=== PATIENT | female | born 1935 | race Caucasian/White ===

== ENCOUNTER 2020-10-21 14:50 | Inpatient (IN) | payer OTHER ==
--- NOTE | 2020-10-21 15:58 | RAD REPORT ---
EXAM DESCRIPTION: RAD - Ankle Left 3 View -10/21/2020 3:45 pm CLINICAL HISTORY: Left ankle pain status post injury FINDINGS: Mildly displaced medial malleolar fracture. Nondisplaced fracture medial aspect of the dis beatrice tibial metaphysis Mildly displaced lateral malleolar fracture. Probable posterior malleolar fracture. There appears to be posterior talus dislocation Old distal tibial fracture
[2020-10-21] MEDS ORDERED: MORPHINE 4 MG/ML SYR ONE (16:10)
[2020-10-21] MEDS ORDERED: NA CHLORIDE 0.9% 500 ML ONE (16:11)
[2020-10-21] MEDS ORDERED: ONDANSETRON 4 MG/2 ML VIAL ONE (16:11)
--- NOTE | 2020-10-21 17:00 | RAD REPORT ---
EXAM DESCRIPTION: RAD - Ankle Left 3 View -10/21/2020 4:27 pm CLINICAL HISTORY: Ankle fracture/dislocation FINDINGS: Good alignment of the tibiotalar joint status post reduction
--- NOTE | 2020-10-21 17:31 | EDPHYS ---
Physician Documentation [facility] Name: Leelee Bhatti Age: 85 yrs Sex: Female : 1935 Arrival Date: 10/21/2020 Time: 14:53 Bed 30 Private MD: OBI Physician Robbie Price HPI: 10/21 15:26 This 85 yrs old Female presents to ER via EMS with complaints of Ankle Injury.sree 15:26 The patient presents with decreased range of motion, a deformity, pain. The complaints sree affect the left ankle. Onset: The symptoms/episode began/occurred just prior to arrival. Context: The problem was sustained at an office, resulted from. Associated signs and symptoms: The patient has no apparent associated signs or symptoms. Modifying factors: The symptoms are alleviated by elevation of extremity, ice packs, the symptoms are aggravated by weight bearing, movement. Severity of symptoms: At their worst the symptoms were mild, in the emergency department the symptoms are unchanged. The patient has not experienced similar symptoms in the past. Historical: - Home Meds: 14:58 None [Active]; ld1 - Immunization history:: Adult Immunizations up to date. - Social history:: Smoking status: Patient denies any tobacco usage or history of. - Family history:: not pertinent. ROS: 15:26 Constitutional: Negative for fever, chills, and weight loss, Eyes: Negative for injury, sree pain, redness, and discharge, ENT: Negative for injury, pain, and discharge, Neck: Negative for injury, pain, and swelling, Cardiovascular: Negative for chest pain, palpitations, and edema, Respiratory: Negative for shortness of breath, cough, wheezing, and pleuritic chest pain, Abdomen/GI: Negative for abdominal pain, nausea, vomiting, diarrhea, and constipation, Back: Negative for injury and pain, : Negative for injury, bleeding, discharge, and swelling, Skin: Negative for injury, rash, and discoloration, Neuro: Negative for headache, weakness, numbness, tingling, and seizure, Psych: Negative for depression, anxiety, suicide ideation, homicidal ideation, and hallucinations, Allergy/Immunology: Negative for hives, rash, and allergies, Endocrine: Negative for neck swelling, polydipsia, polyuria, polyphagia, and marked weight changes, Hematologic/Lymphatic: Negative for swollen nodes, abnormal bleeding, and unusual bruising. 15:26 MS/extremity: Positive for decreased range of motion, pain, swelling, tenderness, of the left lateral ankle, left medial ankle and anterior aspect of left ankle. Exam: 15:26 Constitutional: This is a well developed, well nourished patient who is awake, alert, sree and in no acute distress. Head/Face: Normocephalic, atraumatic. Eyes: Pupils equal round and reactive to light, extra-ocular motions intact. Lids and lashes normal. Conjunctiva and sclera are non-icteric and not injected. Cornea within normal limits. Periorbital areas with no swelling, redness, or edema. ENT: Nares patent. No nasal discharge, no septal abnormalities noted. Tympanic membranes are normal and external auditory canals are clear. Oropharynx with no redness, swelling, or masses, exudates, or evidence of obstruction, uvula midline. Mucous membranes moist. Neck: Trachea midline, no thyromegaly or masses palpated, and no cervical lymphadenopathy. Supple, full range of motion without nuchal rigidity, or vertebral point tenderness. No Meningismus. Chest/axilla: Normal chest wall appearance and motion. Nontender with no deformity. No lesions are appreciated. Cardiovascular: Regular rate and rhythm with a normal S1 and S2. No gallops, murmurs, or rubs. Normal PMI, no JVD. No pulse deficits. Respiratory: Lungs have equal breath sounds bilaterally, clear to auscultation and percussion. No rales, rhonchi or wheezes noted. No increased work of breathing, no retractions or nasal flaring. Abdomen/GI: Soft, non-tender, with normal bowel sounds. No distension or tympany. No guarding or rebound. No evidence of tenderness throughout. Back: No spinal tenderness. No costovertebral tenderness. Full range of motion. Skin: Warm, dry with normal turgor. Normal color with no rashes, no lesions, and no evidence of cellulitis. Neuro: Awake and alert, GCS 15, oriented to person, place, time, and situation. Cranial nerves II-XII grossly intact. Motor strength 5/5 in all extremities. Sensory grossly intact. Cerebellar exam normal. Normal gait. Psych: Awake, alert, with orientation to person, place and time. Behavior, mood, and affect are within normal limits. 15:26 Musculoskeletal/extremity: Extremities: all appear grossly normal, with no appreciated pain with palpation, grossly normal except: noted in the left lateral ankle, left medial ankle and anterior aspect of left ankle: decreased ROM, pain, swelling, tenderness, ROM: limited active range of motion, limited passive range of motion, Circulation is intact in all extremities. Sensation intact. Compartment Syndrome exam of affected extremity: is normal. DVT Exam: No signs of deep vein thrombosis. negative Homans' sign noted on exam, no appreciated bluish discoloration, no erythema, no increased warmth, pain, swelling, tenderness, that is moderate, of the left leg, of the left lateral ankle, left medial ankle and anterior aspect of left ankle. 18:00 ECG was reviewed by the Attending Physician[facility] Vital Signs: 14:54 BP 130 / 72; Pulse 63; Resp 18; Temp 97.9(O); Pulse Ox 100% on R/A; Weight 85.28 kg; ld1 Height 5 ft. 4 in. (162.56 cm); Pain 5/10; 18:04 BP 108 / 49; Pulse 64; Resp 18; Pulse Ox 95% on R/A; ld1 18:30 BP 97 / 51; Pulse 62; Resp 20; Pulse Ox 96% on R/A; kg 19:15 BP 110 / 54; Pulse 57; Resp 20; Pulse Ox 96% on R/A; kg 14:54 Body Mass Index 32.27 (85.28 kg, 162.56 cm) ld1 MDM: 14:58 Patient medically screened. [facility] 15:33 Differential diagnosis: fracture, sprain, foreign body, gout. Data reviewed: [facility] signs, nurses notes, radiologic studies. Data interpreted: monitoring tech: not applicable for this patient encounter. rate is 63 beats/min, rhythm is regular, Pulse oximetry: on room air is 100 %. Test interpretation: by ED physician or midlevel provider: plain radiologic studies. Counseling: I had a detailed discussion with the patient and/or guardian regarding: the historical points, exam findings, and any diagnostic results supporting the discharge/admit diagnosis, radiology results, the need for outpatient follow up, for definitive care, a orthopedic surgeon. 10/21 17:32 Order name: Basic Metabolic Panel; Complete Time: 19:46 em1 10/21 17:32 Order name: CBC with Diff; Complete Time: 19:14 em1 10/21 17:32 Order name: LFT's; Complete Time: 19:46 [facility] 10/21 17:32 Order name: Magnesium; Complete Time: 19:46 [facility] 10/21 17:32 Order name: NT PRO-BNP; Complete Time: 19:46 [facility] 10/21 17:32 Order name: PT-INR; Complete Time: 19:14 [facility] 10/21 15:26 Order name: Ankle Left 3 View XRAY; Complete Time: 19:14 [facility] 10/21 16:08 Order name: Ankle Left 3 View XRAY; Complete Time: 19:14 [facility] 10/21 17:32 Order name: Troponin (emerg Dept Use Only); Complete Time: 19:46 [facility] 10/21 17:32 Order name: XRAY Chest (1 view) [facility] 10/21 18:27 Order name: RAD; Complete Time: 19:14 [facility] 10/21 19:09 Order name: CBC Smear Scan; Complete Time: 19:14 [facility] 10/21 15:26 Order name: Ice pack; Complete Time: 15:45 [facility] 10/21 16:06 Order name: NPO; Complete Time: 16:17 [facility] 10/21 16:29 Order name: Splint - Ankle: Posterior: with stirrup; Complete Time: 18:09 [facility] 10/21 17:32 Order name: EKG; Complete Time: 17:33 [facility] 10/21 17:32 Order name: Cardiac monitoring; Complete Time: 17:34 [facility] 10/21 17:32 Order name: EKG - Nurse/Tech; Complete Time: 18:34 [facility] 10/21 17:32 Order name: IV Saline Lock; Complete Time: 17:34 [facility] 10/21 17:32 Order name: Labs collected and sent; Complete Time: 18:34 [facility] 10/21 17:35 Order name: CONS Physician Consult [facility] 10/21 17:35 Order name: CONS Physician Consult [facility] 10/21 17:32 Order name: O2 Per Protocol; Complete Time: 17:34 [facility] 10/21 17:32 Order name: O2 Sat Monitoring; Complete Time: 17:34 em EC:00 Rate is 60 beats/min. Rhythm is regular. QRS [place] is Normal. [place] interval is normal. QRS sree interval is normal. QT interval is normal. No Q waves. T waves are Normal. No ST changes noted. Clinical impression: NSR w/ Non-specific ST/T Changes and No evidence of ischemia. Interpreted by me. Reviewed by me. Administered Medications: 15:56 Drug: morphine 4 mg Route: IVP; Site: right wrist; ld1 15:59 Follow up: Response: No adverse reaction ld1 15:56 Drug: Zofran (Ondansetron) 4 mg Route: IVP; Site: right wrist; ld1 15:59 Follow up: Response: No adverse reaction ld1 15:57 Drug: NS 0.9% 500 ml Route: IV; Rate: bolus; Site: right wrist; ld1 16:17 Follow up: Response: No adverse reaction; IV Status: Completed infusion; IV Intake: ld1 500ml 16:53 Not Given (Physician Discretion): Etomidate 10 mg IVP once ld1 16:53 Not Given (Physician Discretion): Etomidate 10 mg IVP once ld1 16:53 Not Given (Physician Discretion): Versed (midazolam) 2 mg IVP once ld1 16:53 Not Given (Physician Discretion): Versed (midazolam) 2 mg IVP once ld1 19:58 Drug: Potassium Effervescent Tablet 25 mEq Route: PO; kg 21:56 Follow up: Response: No adverse reaction kg Disposition Summary: 10/21/20 17:31 Hospitalization Ordered Hospitalization Status: Observation sree Provider: Karol Velásquez cha Location: Telemetry/MedSurg (Inpatient) sree Condition: Stable sree Problem: new sree Symptoms: have improved sree Bed/Room Type: Standard sree Room Assignment: [facility](10/21/20 19:53) Diagnosis - Fall (on)(from) incline sree - Fracture of lower end of tibia - dislocation / reduced trimalleolar sree - Nondisplaced fracture of lateral malleolus of left fibula sree - Hypokalemia sree Forms: - Medication Reconciliation Form sree - SBAR form sree Signatures: Dispatcher [employer] EDRobibe Donohue MD MD cha Martinez, Eric em1 Lea Wolff RN RN Marla Newell RN RN ld1 Oliva Cruz RN RN kg Corrections: (The following items were deleted from the chart) 14:58 14:58 Allergies: Niacin; ld1 ld1 14:58 14:58 Home Meds: Unable to obtain; ld1 ld1 19:53 17:31 sree cg
--- NOTE | 2020-10-21 17:31 | ER ---
Nurse's Notes [facility] Name: Leelee Bhatti Age: 85 yrs Sex: Female : 1935 Arrival Date: 10/21/2020 Time: 14:53 Bed 30 Private MD: Diagnosis: Fall (on)(from) incline;Fracture of lower end of tibia-dislocation / reduced trimalleolar;Nondisplaced fracture of lateral malleolus of left fibula;Hypokalemia Presentation: 10/21 14:54 Chief complaint: EMS states: toned out for left ankle injury. Pt slipped in mud at the 1 bank and rolled left ankle while falling. Coronavirus screen: At this time, the client does not indicate any symptoms associated with coronavirus-19. Ebola Screen: No symptoms or risks identified at this time. Initial Sepsis Screen: Does the patient meet any 2 criteria? No. Patient's initial sepsis screen is negative. Does the patient have a suspected source of infection? No. Patient's initial sepsis screen is negative. Risk Assessment: Do you want to hurt yourself or someone else? Patient reports no desire to harm self or others. Onset of symptoms was October 21, 2020. 14:54 Method Of Arrival: EMS: [facility] ld1 14:54 Acuity: GALEN 3 ld1 Triage Assessment: 14:58 General: Appears in no apparent distress. comfortable, Behavior is calm, cooperative, ld1 appropriate for age. Pain: Complains of pain in left lateral ankle and lateral aspect of left foot Pain does not radiate. Pain currently is 5 out of 10 on a pain scale. Quality of pain is described as throbbing, Pain began 2 hours ago. Is continuous. EENT: No signs and/or symptoms were reported regarding the EENT system. Neuro: Level of Consciousness is awake, alert, obeys commands, Oriented to person, place, time, situation. Cardiovascular: Capillary refill < 3 seconds Patient's skin is warm and dry. Respiratory: Airway is patent Respiratory effort is even, unlabored, Respiratory pattern is regular, symmetrical. GI: Abdomen is round non-distended. : No signs and/or symptoms were reported regarding the genitourinary system. Derm: No signs and/or symptoms reported regarding the dermatologic system. Musculoskeletal: Capillary refill < 3 seconds, in bilateral toes. Swelling absent Left ankle is swollen. Historical: - Home Meds: 14:58 None [Active]; ld1 - Immunization history:: Adult Immunizations up to date. - Social history:: Smoking status: Patient denies any tobacco usage or history of. - Family history:: not pertinent. Screenin:59 Abuse screen: Denies threats or abuse. Denies injuries from another. Nutritional ld1 screening: No deficits noted. Tuberculosis screening: No symptoms or risk factors identified. Fall Risk Fall in past 12 months (25 points). Assessment: 14:59 Reassessment: See triage assessment. ld1 16:00 Reassessment: Patient appears in no apparent distress at this time. No changes from ld1 previously documented assessment. Patient and/or family updated on plan of care and expected duration. Pain level reassessed. Patient is alert, oriented x 3, equal unlabored respirations, skin warm/dry/pink. 16:25 Reassessment: ERP at bedside discussing POC. ld1 17:55 Reassessment: Patient appears in no apparent distress at this time. No changes from ld1 previously documented assessment. Patient is alert, oriented x 3, equal unlabored respirations, skin warm/dry/pink. 19:30 Reassessment: Message left on Son Koby Guillaume voicemail. Will continue to try to reach kg him per patient request. [phone]. Vital Signs: 14:54 BP 130 / 72; Pulse 63; Resp 18; Temp 97.9(O); Pulse Ox 100% on R/A; Weight 85.28 kg; ld1 Height 5 ft. 4 in. (162.56 cm); Pain 5/10; 18:04 BP 108 / 49; Pulse 64; Resp 18; Pulse Ox 95% on R/A; ld1 18:30 BP 97 / 51; Pulse 62; Resp 20; Pulse Ox 96% on R/A; kg 19:15 BP 110 / 54; Pulse 57; Resp 20; Pulse Ox 96% on R/A; kg 14:54 Body Mass Index 32.27 (85.28 kg, 162.56 cm) ld1 ED Course: 14:53 Patient arrived in ED. ld1 14:53 Marla Newell, BETSY is Primary Nurse. ld1 14:57 Triage completed. ld1 14:58 Robbie Price MD is Attending Physician. sree 14:58 Arm band placed on left wrist. ld1 14:59 Patient has correct armband on for positive identification. Bed in low position. Call ld1 light in reach. Side rails up X2. Pulse ox on. NIBP on. Door closed. Noise minimized. Warm blanket given. 14:59 No provider procedures requiring assistance completed. ld1 15:45 Ankle Left 3 View XRAY In Process Unspecified. EDMS 16:27 Ankle Left 3 View XRAY In Process Unspecified. EDMS 17:20 Karol Velásquez MD is Hospitalizing Provider. sree 17:26 Orthoglass splint: Posterior long leg splint applied on right leg. Orthoglass splint: dh4 stirrup splint applied on right leg. 20:40 Report given to Phyllis MEYERdrugless doctor. kg Administered Medications: 15:56 Drug: morphine 4 mg Route: IVP; Site: right wrist; ld1 15:59 Follow up: Response: No adverse reaction ld1 15:56 Drug: Zofran (Ondansetron) 4 mg Route: IVP; Site: right wrist; ld1 15:59 Follow up: Response: No adverse reaction ld1 15:57 Drug: NS 0.9% 500 ml Route: IV; Rate: bolus; Site: right wrist; ld1 16:17 Follow up: Response: No adverse reaction; IV Status: Completed infusion; IV Intake: ld1 500ml 16:53 Not Given (Physician Discretion): Etomidate 10 mg IVP once ld1 16:53 Not Given (Physician Discretion): Etomidate 10 mg IVP once ld1 16:53 Not Given (Physician Discretion): Versed (midazolam) 2 mg IVP once ld1 16:53 Not Given (Physician Discretion): Versed (midazolam) 2 mg IVP once ld1 19:58 Drug: Potassium Effervescent Tablet 25 mEq Route: PO; kg 21:56 Follow up: Response: No adverse reaction kg Intake: 16:17 IV: 500ml; Total: 500ml. ld1 Outcome: 17:31 Decision to Hospitalize by Provider. sree 20:41 Admitted to Med/surg accompanied by tech, via stretcher, Report called to Phyllis MEYER kg 20:41 Condition: good 20:41 Instructed on the need for admit, Demonstrated understanding of instructions. 21:56 Patient left the ED. kg Signatures: Dispatcher [employer] Robbie Silva MD MD cha Huhn, Donald 4 Marla Newell RN RN ld1 Oliva Cruz RN RN kg Corrections: (The following items were deleted from the chart) 14:58 14:58 Allergies: Niacin; ld1 ld1 14:58 14:58 Home Meds: Unable to obtain; ld1 ld1
--- NOTE | 2020-10-21 18:27 | RAD REPORT ---
EXAM DESCRIPTION: Tori Single View10/21/2020 6:14 pm CLINICAL HISTORY: Chest pain COMPARISON: 2011 FINDINGS: [id number] bilateral pulmonary opacities. Heart is mildly enlarged IMPRESSION: [id number] bilateral pulmonary opacities may indicate pneumonia or pulmonary edema
[2020-10-21 18:33] LABS: Absolute Lymphocytes (CBC) 0.8 K/uL (0.7-4.9); Basophils % 0.4 % (0-1.3); Hematocrit 38.4 % (36.0-45.0); Lymphocytes % 9.7 % (15.3-44.8); MPV 7.5 fL (7.6-11.3); RBC Red Blood Cell Count 4.43 M/uL (3.86-4.86)
[2020-10-21 18:36] LABS: Protime INR 1.03
[2020-10-21 19:08] LABS: Blood Morphology Comment NOT SEEN (NOT SEEN); Platelet Estimate ADEQ; White Blood Cell Scan OK (OK)
[2020-10-21 19:27] LABS: ALT/SGPT 24 U/L (12-78); AST/SGOT 19 U/L (15-37); Albumin 3.4 g/dL (3.4-5.0); Alkaline Phosphatase 66 U/L (45-117); BUN Blood Urea Nitrogen 14 mg/dL (7-18); Bicarbonate 26 mmol/L (21-32); Bilirubin Direct 0.1 mg/dL (0-0.2); Bilirubin Total 0.4 mg/dL (0.2-1.0); Glucose Level 133 mg/dL (74-106); Magnesium 2.1 mg/dL (1.8-2.4); NT PRO-BNP 56 pg/mL (<450); Potassium 3.3 mmol/L (3.5-5.1); Protein, Total 6.9 g/dL (6.4-8.2); Sodium Level 139 mmol/L (136-145); Troponin (Emerg Dept Use Only) < 0.02 ng/mL (0.0-0.045)
[2020-10-21] MEDS ORDERED: POTASSIUM 25 MEQ EFFERV TAB ONE (20:15)
[2020-10-21] MEDS: NA CHLORIDE 0.9% 1,000 ML IV SCH (22:18)
[2020-10-22 06:09] LABS: Absolute Lymphocytes (CBC) 1.2 K/uL (0.7-4.9); Basophils % 0.4 % (0-1.3); Hematocrit 36.2 % (36.0-45.0); Lymphocytes % 17.3 % (15.3-44.8); MPV 7.7 fL (7.6-11.3); RBC Red Blood Cell Count 4.15 M/uL (3.86-4.86)
[2020-10-22 06:28] LABS: Potassium 3.3 mmol/L (3.5-5.1)
[2020-10-22] MEDS: NA CHLORIDE 0.9% 1,000 ML IV SCH ×2 (08:18→17:05)
[2020-10-22] MEDS: ONDANSETRON 4 MG/2 ML VIAL IV PRN (10:02)
[2020-10-22] MEDS: MORPHINE 4 MG/ML SYR IV PRN (10:02)
--- NOTE | 2020-10-22 13:47 | HP ---
Date of Admission: 10/21/2020 History Of Present Illness: [age] year female, who presents to the emergency room with a histo ry that while at home, she stepped on a wet floor and she lost balance, slipped and fell. Her evalua tion in the emergency room showed that the patient has left ankle fracture and she was admitted for p ain control and for possible surgery on that. The patient denies head trauma and no loss of consciou sness. Has no other complaints of pain anywhere except her left ankle. She has no increased shortne ss of breath. No chest pain. No cough. No fever. No chills and voiced no other complaints. Review of Systems: Cardiovascular: No complaints. Respiratory: No complaints. Skeletomuscular: As above. Genitourinary: No complaint. Gastrointestinal: No complaint. Neurological: No complaint. Past Medical History: 1.Hypertension. 2.Hyperlipidemia. 3.Depression. 4.Gastroesophageal reflux disease. Social History: No smoking, alcohol, or IV drug abuse history. Family History: Noncontributing. Medications: Include metoprolol 25 mg p.o. daily, pravastatin 80 mg p.o. daily, sertraline 100 mg p. o. daily and omeprazole 20 mg p.o. daily. Allergies: NIACIN. Physical Examination: Vital Signs: Blood pressure 127/61, pulse 80, temperature 97.7, oxygen saturation 92% on room air. Heart: Regular rate and rhythm. Chest: Clear to auscultation. Abdomen: Soft, nontender. No hepatosplenomegaly. Bowel sounds are normoactive. Extremities: No edema. No cyanosis. Left ankle is in a splint. Neurologic: Alert, oriented, grossly intact. Radiographic Studies: Left ankle x-ray showed fracture of the medial and lateral malleoli which are mildly displaced. Chest x-ray, an incidental finding of mild to moderate bilateral pulmonary opaciti es, pneumonia versus pulmonary edema consideration. Laboratory Data: CBC noted. Chemistry; potassium 3.3, GFR 80. The rest of her chemistry is noted. Assessment/plan: Left malleolar ankle fracture. Dr. Camacho have seen the patient and considering the surgery on that by tomorrow. The patient is clinically stable, however, we will go ahead and or rosetta a cardiac echo because of the chest x-ray finding and we will monitor the patient's vitals. So f ar, no clinical indications that the patient has pneumonia or congestive heart failure, but we will c heck an echo and repeat a chest x-ray in the morning. Meanwhile, we will put the patient on electrol yte protocol for her hypokalemia. Look orders for details. MFS/MODL Voice ID: [id number]
--- NOTE | 2020-10-22 14:38 | CON ---
Date of Consultation: 10/22/2020 History Of Present Illness: This is my first time seeing this patient to my knowledge. She is an 85 -year-old female, who unfortunately fell injuring her left lower extremity. She does have a history of an old tibia fracture, which was healed, but now has significant complaints of pain at the ankle. She was seen and examined in the emergency department where she was ruled out for other injuries; ho shanna, unfortunately, she has a trimalleolar ankle fracture, which was reduced and appears to be well reduced on x-rays. Physical Examination: There is no sign of an open injury. She complains of pain in both medial and lateral malleolus. The re was no plantar ecchymosis. Her skin does wrinkle, although it was slightly swollen. She is neuro vascularly intact. Laboratory Data: Review of x-rays does reveal trimalleolar ankle fracture, which appears to be well reduced. Assessment: Trimalleolar ankle fracture in an 85-year-old female. Plan: At this time, we will proceed with open reduction and internal fixation of ankle fracture, mos t likely tomorrow. She will be n.p.o. after midnight. This is continued upon her skin being easily wrinkle tomorrow. This has been discussed with the patient. She states she understands things as pr esented. /MODL Voice ID: [id number] Report ID: [id number]
[2020-10-22] MEDS: ENOXAPARIN 40 MG/0.4 ML SQ SCH (15:58)
[2020-10-22] MEDS: ACETAMINOPHEN 500 MG TAB PO PRN (17:04)
[2020-10-22] MEDS: SERTRALINE HCL 100 MG TAB PO SCH (17:06)
[2020-10-22] MEDS: ATORVASTATIN 10 MG TAB PO SCH (21:45)
[2020-10-23] MEDS: NA CHLORIDE 0.9% 1,000 ML IV SCH ×2 (05:14→14:18)
[2020-10-23 06:06] LABS: Basophils % 0.5 % (0-1.3); Hematocrit 33.9 % (36.0-45.0); Lymphocytes % 15.5 % (15.3-44.8); MPV 7.9 fL (7.6-11.3); RBC Red Blood Cell Count 3.95 M/uL (3.86-4.86)
[2020-10-23] MEDS: PANTOPRAZOLE 40MG TABLET PO SCH ×2 (06:06→16:45)
[2020-10-23 06:15] LABS: Potassium 3.6 mmol/L (3.5-5.1)
[2020-10-23] MEDS: MORPHINE 4 MG/ML SYR IV PRN (06:21)
[2020-10-23] MEDS ORDERED: KCL 20 MEQ/100 mL IVPB 20 MEQ/100 ML BAG IV SCH (07:00)
[2020-10-23] MEDS ORDERED: CEFAZOLIN/SWI 1gm 1 GM/10 ML SYR ONE (08:40)
[2020-10-23] MEDS ORDERED: Ringers Lactate 0 ML IV ONE (08:40)
[2020-10-23] MEDS: SERTRALINE HCL 100 MG TAB PO SCH ×2 (08:42→16:46)
[2020-10-23] MEDS: METOPROLOL TAR 25 MG TAB PO SCH (08:42)
[2020-10-23] MEDS ORDERED: HOME MED 1 EA UNK (Pravastatin Sodium [Pravastatin Sodium] 80 MG Tablet) PO SCH (09:00)
[2020-10-23] MEDS ORDERED: HOME MED 1 EA UNK (Omeprazole [Omeprazole] 20 MG Capsule.Dr) PO SCH (09:00)
[2020-10-23] MEDS ORDERED: propofoL 200 MG/20 ML VIAL IV ONE (09:14)
[2020-10-23] MEDS ORDERED: LIDOCAINE 2% MPF 5 ML VIAL ONE (09:15)
[2020-10-23] MEDS ORDERED: FENTANYL CITR 100 MCG/2 ML ONE ×2 (09:15→10:16)
[2020-10-23] MEDS ORDERED: dexAMETHasone 10 MG/ML VIAL ONE (09:54)
[2020-10-23] MEDS ORDERED: KETOROLAC 30 MG/ML INJ ONE (09:55)
[2020-10-23] MEDS ORDERED: ONDANSETRON 4 MG/2 ML VIAL ONE (09:55)
--- NOTE | 2020-10-23 10:48 | RAD REPORT ---
EXAM DESCRIPTION: Tori Single View10/23/2020 6:55 am CLINICAL HISTORY: Chest pain COMPARISON: October 21 FINDINGS: Bilateral pulmonary opacities appear resolved. Heart is borderline enlarged IMPRESSION: Resolution in bilateral pulmonary opacities
--- NOTE | 2020-10-23 11:13 | P.BOP ---
Preoperative diagnosis: left trimalleolar ankle fracture Postoperative diagnosis: same Primary procedure: left ankle bimalleolar ORIF Estimated blood loss: 20ccs Anesthesia: General Complications: None Transferred to: Recovery Room Condition: Good
[2020-10-23] MEDS ORDERED: LABETALOL 20 MG/4ML SYRINGE IV ONE (11:45)
--- NOTE | 2020-10-23 11:45 | RAD REPORT ---
EXAM DESCRIPTION: RAD - Ankle Left 2 View - 10/23/2020 11:28 am CLINICAL HISTORY: Left ankle fracture FINDINGS: fluoro time: 0.4 minutes. Seventeen fluoroscopic spot images obtained Plate and screws affix medial and lateral malleolar fractures. Surgery performed by Dr. Camacho
--- NOTE | 2020-10-23 11:51 | OP ---
Date of Procedure: 10/23/2020 Surgeon: Demarco Camacho MD Preoperative Diagnosis: Left trimalleolar ankle fracture which is comminuted and complex. Postoperative Diagnosis: Left trimalleolar ankle fracture which is comminuted and complex. Procedure: 1.Open reduction and internal fixation of medial malleolus. 2.Open reduction and internal fixation of lateral malleolus. Estimated Blood Loss: 20 cc. Complication: There were no complications. Pathology: No pathology. Specimen: No specimen sent. Indication For Operation: Ms. Bhatti is an 85-year-old female who unfortunately injured her left ank le. She was seen in the emergency department where she was ruled out for other injuries, however, x- rays demonstrated a trimalleolar ankle fracture. I saw her yesterday as well as this morning and her skin does easily wrinkle. Risks, benefits, and alternatives to different methods of treatment have been discussed with her and she agrees to proceed. Description Of Procedure: The patient was taken to the operating room and placed in supine position. General anesthesia was obtained by staff. Following this, a well-padded tourniquet was placed on s uperior left thigh. Left lower extremity was then prepped and draped in usual sterile fashion. Afte r this, attention was first turned to the medial aspect. A long medial incision was then taken down carefully through skin and soft tissues. Meticulous hemostasis being maintained using Bovie electroc autery. This leads down to the primary fracture fragment. It should be noted on the x-ray that she does have a secondary fracture fragment, which is somewhat higher. This is not to be confused with a n old healed tibia fracture as a new fracture, which is not easily seen, but is definitely appreciate d. Because of this one 4-0 cannulated screw was placed, which is fairly long covering both fractures . The bone itself was quite fragile and did not feel that placing another cannulated screw or other fixation would be beneficial. It did appear to hold the fractures quite well. After this, attention was then turned to the lateral aspect. A standard lateral incision was taken down carefully through skin and soft tissues. Meticulous hemostasis being maintained using Bovie electrocautery. This manav ds down to the fibula as expected and identical to the medial side the bone is very fragile and the f racture site itself is comminuted. I was able to reduce it using a lobster claw, however, had to be done very gently. This was checked under C-arm and it did appear to have a good reduction. There is no real way to place a lag screw and therefore it was then bridge plated using a the Synthes set, 1/ 3 tubular. The most distal screw is a cancellous screw. The screw above that is a locking cortical screw, which was placed because the bone quality there was extremely poor. The 3 more proximal screw s on the other side of the fracture did have fairly good bite. The wound was irrigated and C-arm was brought in. It does appear to have good reduction of the joint surfaces. Both wounds were copiousl y irrigated and closed using Vicryl sutures, followed by nylon sutures. The patient was then placed in extremely well-padded sterile dressing as well as a posterior splint, new. The patient was then awakened, taken to recovery room in good condition. No complications. /JORGE Voice ID: [id number] Report ID: [id number]
--- NOTE | 2020-10-23 14:36 | PN ---
Subjective: The patient has had open reduction and internal fixation of left middle and lateral mall eoli ankle. Objective: The patient's blood pressure 136/70, pulse 70, temperature 98. Rest of physical exam, no change. Laboratory Data: CBC today noted. Chemistry noted with a chloride of 108, GFR of 85. Assessment And Plan: Status post surgical correction of left ankle fracture as mentioned above with Solicitor Patent for discharge planning for the patient because she lives alone and if she needs to be placed with physical therapy and weightbearing pending. Cardiac echo ordered. Her chest x-ray today showed resolution of pulmonary opacities. Look orders for details. MFS/MODL Voice ID: [id number] Report ID: [id number]
[2020-10-23] MEDS: ENOXAPARIN 40 MG/0.4 ML SQ SCH (16:46)
[2020-10-23] MEDS ORDERED: POTASSIUM CL SA 10 MEQ TAB PO ONE (17:00)
[2020-10-23] MEDS: ATORVASTATIN 10 MG TAB PO SCH (21:49)
[2020-10-23] MEDS: ACETAMINOPHEN 500 MG TAB PO PRN (22:08)
[2020-10-24] MEDS: NA CHLORIDE 0.9% 1,000 ML IV SCH ×3 (00:18→20:18)
[2020-10-24 06:07] LABS: Phosphorus 2.4 mg/dL (2.5-4.9); Potassium 4.5 mmol/L (3.5-5.1)
[2020-10-24] MEDS: PANTOPRAZOLE 40MG TABLET PO SCH (06:21)
[2020-10-24] MEDS: METOPROLOL TAR 25 MG TAB PO SCH (10:19)
[2020-10-24] MEDS: SERTRALINE HCL 100 MG TAB PO SCH (10:19)
[2020-10-24] MEDS: POTASS/SODIUM PHOSPHATE 1 PKT POWD.PACK PO SCH ×2 (10:19→11:22)
[2020-10-24] MEDS: MORPHINE 4 MG/ML SYR IV PRN (11:26)
[2020-10-24] MEDS: ONDANSETRON 4 MG/2 ML VIAL IV PRN (11:26)
[2020-10-24] MEDS: ENOXAPARIN 40 MG/0.4 ML SQ SCH (16:54)
[2020-10-24] MEDS: ATORVASTATIN 10 MG TAB PO SCH (21:27)
[2020-10-24] MEDS: HYDROCODONE/APAP 5/325 MG TAB PO PRN (21:28)
[2020-10-25] MEDS: PANTOPRAZOLE 40MG TABLET PO SCH (05:48)
[2020-10-25 06:17] LABS: Phosphorus 2.3 mg/dL (2.5-4.9); Potassium 3.8 mmol/L (3.5-5.1)
[2020-10-25] MEDS ORDERED: POTASSIUM CL SA 10 MEQ TAB PO ONE (07:24)
[2020-10-25] MEDS: POTASS/SODIUM PHOSPHATE 1 PKT POWD.PACK PO SCH ×3 (08:27→10:51)
[2020-10-25] MEDS: HYDROCODONE/APAP 5/325 MG TAB PO PRN ×2 (08:28→18:16)
[2020-10-25] MEDS: SERTRALINE HCL 100 MG TAB PO SCH (08:28)
[2020-10-25] MEDS: METOPROLOL TAR 25 MG TAB PO SCH (08:28)
--- NOTE | 2020-10-25 08:31 | ECHO ---
HEIGHT: 5 ft 2 in WEIGHT: 187 lb 0 oz DATE OF STUDY: 10/22/[address]: Karol Velásquez MD 2-DIMENSIONAL: YES M.MODE: YES DOPPLER: YES COLOR FLOW: YES TDS: YES PORTABLE: NO DEFINITY: NO BUBBLE STUDY: NO DIAGNOSIS: PULMONARY EDEMA CARDIAC HISTORY: CATHERIZATION: SURGERY: PROSTHETIC VALVE: PACEMAKER: MEASUREMENTS (cm) DIASTOLIC (NORMALS) SYSTOLIC (NORMALS) IVSd 0.8 (0.6-1.2) LA Diam 3.1 (1.9-4.0) LVEF 55-60% LVIDd 4.0 (3.5-5.7) LVIDs 2.6 (2.0-3.5) %FS 35% LVPWd 0.9 (0.6-1.2) Ao Diam 2.5 (2.0-3.7) 2 DIMENSIONAL ASSESSMENT: RIGHT ATRIUM: NORMAL LEFT ATRIUM: NORMAL RIGHT VENTRICLE: NORMAL LEFT VENTRICLE: NORMAL TRICUSPID VALVE: MITRAL VALVE: NORMAL PULMONIC VALVE: NORMAL AORTIC VALVE: NORMAL PERICARDIAL EFFUSION: NONE AORTIC ROOT: NORMAL LEFT VENTRICULAR WALL MOTION: NORMAL DOPPLER/COLOR FLOW: MILD TRICUSPID REGURGITATION. COMMENTS: NORMAL LEFT VENTRICULAR EJECTION FRACTION 55-60%. GRADE I DIASTOLIC DYSFUNCTION. RIGHT VENTRICULAR SYSTOLIC PRESSURE 35-40 mmHg. TECHNOLOGIST: Jose LOPEZ
[2020-10-25] MEDS: ENOXAPARIN 40 MG/0.4 ML SQ SCH (18:16)
[2020-10-25] MEDS: ATORVASTATIN 10 MG TAB PO SCH (21:05)
[2020-10-25 22:35] VITALS: BMI 37.0
[2020-10-26 04:25] LABS: BUN Blood Urea Nitrogen 13 mg/dL (7-18); Bicarbonate 30 mmol/L (21-32); Glucose Level 92 mg/dL (74-106); Phosphorus 3.6 mg/dL (2.5-4.9); Sodium Level 141 mmol/L (136-145)
[2020-10-26] MEDS: PANTOPRAZOLE 40MG TABLET PO SCH (05:37)
[2020-10-26] MEDS: HYDROCODONE/APAP 5/325 MG TAB PO PRN (05:49)
[2020-10-26] MEDS: METOPROLOL TAR 25 MG TAB PO SCH (10:37)
[2020-10-26] MEDS: SERTRALINE HCL 100 MG TAB PO SCH (10:38)
[2020-10-26] MEDS: ACETAMINOPHEN 500 MG TAB PO PRN ×2 (12:24→17:24)
[2020-10-26] MEDS: ENOXAPARIN 40 MG/0.4 ML SQ SCH (17:20)
[2020-10-26] MEDS: ATORVASTATIN 10 MG TAB PO SCH (20:55)
[2020-10-27] MEDS: ACETAMINOPHEN 325 MG TABLET PO PRN ×3 (04:36→20:56)
[2020-10-27] MEDS: PANTOPRAZOLE 40MG TABLET PO SCH (06:20)
[2020-10-27] MEDS: SERTRALINE HCL 100 MG TAB PO SCH (08:31)
[2020-10-27] MEDS: METOPROLOL TAR 25 MG TAB PO SCH (08:31)
[2020-10-27] MEDS: ENOXAPARIN 40 MG/0.4 ML SQ SCH (15:52)
[2020-10-27] MEDS: ATORVASTATIN 10 MG TAB PO SCH (20:56)
[2020-10-28] MEDS: PANTOPRAZOLE 40MG TABLET PO SCH (06:30)
[2020-10-28] MEDS: SERTRALINE HCL 100 MG TAB PO SCH (09:21)
[2020-10-28] MEDS: ACETAMINOPHEN 325 MG TABLET PO PRN ×2 (09:22→19:12)
[2020-10-28] MEDS: METOPROLOL TAR 25 MG TAB PO SCH (09:22)
--- NOTE | 2020-10-28 13:16 | PN ---
The patient is hemodynamically and clinically stable, has no new complaints. Apparently, the patient 's son will not be able to take her in his house, so plan as per Legal Compliance Officer after discussing it with the patient is to go ahead and send her to a penitentiary facility. Right now, we are waitin g on penitentiary facility response to transfer her there. MFS/MODL Voice ID: [id number] Report ID: [id number]
[2020-10-28] MEDS: ENOXAPARIN 40 MG/0.4 ML SQ SCH (17:24)
[2020-10-28] MEDS: ATORVASTATIN 10 MG TAB PO SCH (20:19)
[2020-10-29] MEDS: PANTOPRAZOLE 40MG TABLET PO SCH (06:18)
[2020-10-29] MEDS: ACETAMINOPHEN 325 MG TABLET PO PRN ×3 (10:19→22:25)
[2020-10-29] MEDS: METOPROLOL TAR 25 MG TAB PO SCH (10:20)
[2020-10-29] MEDS: SERTRALINE HCL 100 MG TAB PO SCH (10:21)
--- NOTE | 2020-10-29 16:21 | PN ---
Subjective: The patient is doing well. Has no new complaints. Objective: Vital Signs: Blood pressure 130/70, pulse 100, temperature 97.8. Heart: Regular rate and rhythm. Chest: Clear to auscultation. Abdomen: Soft, benign. Neurological examination: Alert, oriented, and nonfocal. Grossly intact. Extremities: Left lower extremity and ankle are dressed. Right extremity, no edema. Assessment And Plan: Status post open reduction and internal fixation for left ankle. The patient i s doing well. However, I have talked with the patient, since her son cannot take her home or he jesus ot come to stay with her, that she needs to be in a facility where she could have physical therapy un til she can ambulate on her own, so she understood that and will await response from [facility] for that, so she can be transferred over there with her physical therapy. Per the patient up until now still needing assistance with ambulation. MFS/MODL Voice ID: [id number] Report ID: [id number]
[2020-10-29] MEDS: ENOXAPARIN 40 MG/0.4 ML SQ SCH (17:22)
[2020-10-29] MEDS: ATORVASTATIN 10 MG TAB PO SCH (20:22)
[2020-10-29] MEDS: HYDROCODONE/APAP 5/325 MG TAB PO PRN (22:23)
[2020-10-30] MEDS: PANTOPRAZOLE 40MG TABLET PO SCH (06:52)
[2020-10-30] MEDS: METOPROLOL TAR 25 MG TAB PO SCH (08:36)
[2020-10-30] MEDS: SERTRALINE HCL 100 MG TAB PO SCH (08:36)
[2020-10-30] MEDS: ACETAMINOPHEN 325 MG TABLET PO PRN ×2 (10:55→18:22)
--- NOTE | 2020-10-30 15:04 | PN ---
Subjective: The patient is hemodynamically stable, doing well. Objective: Vital Signs: Blood pressure 135/65, pulse 66, temperature 97.3. Physical exam has no changes, clinically stable. Still waiting for assisted placement, physical therapy after her open reduction and internal fixation surgery on her left ankle. Once, she has a be d in a assisted, [facility] facility with physical therapy . Meanwhile, continue current treatment. MFS/MODL Voice ID: [id number] Report ID: [id number]
[2020-10-30] MEDS: ENOXAPARIN 40 MG/0.4 ML SQ SCH (16:39)
[2020-10-30] MEDS: ATORVASTATIN 10 MG TAB PO SCH (20:12)
[2020-10-31] MEDS: ACETAMINOPHEN 325 MG TABLET PO PRN ×3 (00:16→16:35)
[2020-10-31] MEDS: PANTOPRAZOLE 40MG TABLET PO SCH (06:38)
[2020-10-31] MEDS: SERTRALINE HCL 100 MG TAB PO SCH (10:03)
[2020-10-31] MEDS: METOPROLOL TAR 25 MG TAB PO SCH (10:03)
[2020-10-31] MEDS: ENOXAPARIN 40 MG/0.4 ML SQ SCH (16:36)
[2020-10-31] MEDS: ATORVASTATIN 10 MG TAB PO SCH (20:59)
[2020-11-01] MEDS: PANTOPRAZOLE 40MG TABLET PO SCH (05:59)
[2020-11-01] MEDS: SERTRALINE HCL 100 MG TAB PO SCH (08:24)
[2020-11-01] MEDS: METOPROLOL TAR 25 MG TAB PO SCH (08:24)
--- NOTE | 2020-11-01 16:27 | PN ---
Subjective: The patient's blood pressure 130/60, pulse 64, temperature 97.7. The patient has no new complaints. Physical Examination: No change. Assessment And Plan: The patient is clinically stable at this time. We will continue physical thera py until she gets accepted to the [facility] for physical therapy to continue. I have not heard [facility] Associate Program Manager today about this issue. MFS/MODL Voice ID: [id number] Report ID: [id number]
[2020-11-01] MEDS: ENOXAPARIN 40 MG/0.4 ML SQ SCH (17:00)
[2020-11-01] MEDS: ATORVASTATIN 10 MG TAB PO SCH (21:06)
[2020-11-01] MEDS: ACETAMINOPHEN 325 MG TABLET PO PRN (23:02)
[2020-11-02] MEDS: PANTOPRAZOLE 40MG TABLET PO SCH ×2 (06:31→10:08)
[2020-11-02] MEDS: METOPROLOL TAR 25 MG TAB PO SCH (10:07)
[2020-11-02] MEDS: SERTRALINE HCL 100 MG TAB PO SCH (10:08)
[2020-11-02 15:11] VITALS: O2SAT 96
[2020-11-02] MEDS: ENOXAPARIN 40 MG/0.4 ML SQ SCH (15:40)
[2020-11-02] MEDS: ATORVASTATIN 10 MG TAB PO SCH (20:33)
[2020-11-03] MEDS: ACETAMINOPHEN 325 MG TABLET PO PRN ×2 (02:25→10:52)
[2020-11-03 06:47] LABS: Absolute Lymphocytes (CBC) 1.3 K/uL (0.7-4.9); Basophils % 0.7 % (0-1.3); Hematocrit 33.3 % (36.0-45.0); Lymphocytes % 19.1 % (15.3-44.8); MPV 7.5 fL (7.6-11.3); RBC Red Blood Cell Count 3.82 M/uL (3.86-4.86)
[2020-11-03] MEDS ORDERED: hydroCHLOROthiazide 12.5 MG CAP PO SCH (09:00)
[2020-11-03] MEDS ORDERED: AMLODIPINE 5 MG TAB PO SCH (09:00)
[2020-11-03] MEDS: SERTRALINE HCL 100 MG TAB PO SCH (09:52)
[2020-11-03] MEDS: METOPROLOL TAR 25 MG TAB PO SCH (09:52)
[2020-11-03 12:21] VITALS: BP 130/67; TEMP 98.4
== END 2020-11-03 15:19 | DRG 494 ==
LOC: ER 14:50 → ERHOLD 17:33 → 2ND 20:43
PROVIDERS: ADMIT Internal Medicine; ATTEND Internal Medicine
PROC: 0QSH04Z Reposition Left Tibia with Internal Fixation Device, Open Approach (ICD-10-PCS; 2020-10-23)
PROC: 0QSK04Z Reposition Left Fibula with Internal Fixation Device, Open Approach (ICD-10-PCS; principal; 2020-10-23 09:00)
DX: S82.852A Displaced trimalleolar fracture of left lower leg, initial encounter for closed fracture (principal); W01.0XXA Fall on same level from slipping, tripping and stumbling without subsequent striking against object, initial encounter; Y92.009 Unspecified place in unspecified non-institutional (private) residence as the place of occurrence of the external cause; I10 Essential (primary) hypertension; E78.5 Hyperlipidemia, unspecified; F32.9 Major depressive disorder, single episode, unspecified; K21.9 Gastro-esophageal reflux disease without esophagitis; Z20.822 Contact with and (suspected) exposure to COVID-19
CPT/HCPCS: 36415; 71045; 80048; 80076; 83735; 83880; 84100; 84484; 85025; 85610; 93005; 93306; 96374; 96375; 97110; 97112; 97116; 97162; 97530; 97542; 99285; J0690; J1100; J1650; J2405; J2704; J3010; J7030; J7040; J7120; U0003

== ENCOUNTER → 2023-04-07 | Emergency (ER) | payer OTHER ==
[~2023-04-07] MED LIST: LORAZEPAM 1 MG TABLET ONE
--- OUTSIDE RECORDS SUMMARY | 2023-04-07 03:00 | XMS REPORT | Continuity of Care Document ---
Author Name Unknown Address [address] [facility] [address] th[address] Address [address] [facility] [address] [place] [address] Care Team Providers Care Tear Down Worker Name Role Phone Sahil Piedra Attending Clinician Unavailable [email or web address]_S Attending Clinician Unavaila ble [email or web address]_S Admitting Clinician Unavaila ble Encounters Start Date/Time End Date/Time Encounter Type Admission Type Attending Clinicians Care Facility Care Department Encounter ID Source 2022-07-14 14:39:02 Outpatient Tadeo Sahil [facility] [id number] [facility] 2022-07-12 08:06:00 Outpatient Sahil Piedra [facility] [id number] [facility] 2022-07-10 09:04:02 Outpatient Tadeo Sahil [facility] [id number] [facility] 2023-01-30 00:00:00 2023-01-30 00:00:00 Outpatient [email or web address] diyala_S [facility] [id number] [facility]
[2023-04-07 03:43] LABS: Absolute Lymphocytes (CBC) 1.4 K/uL (0.7-4.9); Hematocrit 41.3 % (36.0-45.0); Lymphocytes % 24.6 % (15.3-44.8); MCV 90.3 fL (80-100); MPV 7.5 fL (7.6-11.3); Platelets 192 thou/uL (152-406); RBC Red Blood Cell Count 4.57 M/uL (3.86-4.86)
[2023-04-07 04:04] LABS: Albumin 3.4 g/dL (3.4-5.0); Bilirubin Total 0.4 mg/dL (0.2-1.0); Magnesium 2.1 mg/dL (1.6-2.4); Potassium 3.6 mEq/L (3.5-5.1); Protein, Total 7.2 g/dL (6.4-8.2); Troponin High Sensitivity 6.5 pg/mL (<58.9)
--- NOTE | 2023-04-07 04:14 | EDPHYS ---
Physician Documentation [facility] Name: Leelee Bhatti Age: 87 yrs Sex: Female : 1935 Arrival Date: 04/07/2023 Time: 02:57 Bed 3 Private MD: ED Physician Kvng Nielson HPI: 04/07 03:31 This 87 yrs old Female presents to ER via EMS with complaints of Tremors, rt panicking. 03:31 Patient presents to the ED with reported pain again with shaking and night terrors rt starting tonight. The patient states that her sertraline was abruptly stopped by her physician about 2 weeks ago. She denies any physical symptoms at this time otherwise, denies other acute complaints and states that she is bleeding to mildly improved. Symptoms are moderate in severity, no other aggravating or elevating factors. Historical: - Allergies: 03:10 Niacin; jw7 - Home Meds: 03:10 amlodipine oral [Active]; sertraline oral [Active]; jw7 03:10 hydralazine/lisinopril [Active]; pravastatin oral [Active]; jw7 - PMHx: 03:10 Hypertensive disorder; Anxiety; Major depressive disorder; jw7 - PSHx: 03:10 Ankle (L); jw7 - Immunization history:: Adult Immunizations up to date, Client reports receiving the 2nd dose of the Covid vaccine, Pneumococcal vaccine is up to date, Flu vaccine is not up to date. It has been more than one year since last vaccine. - Social history:: Smoking status: Patient denies any tobacco usage or history of. - Family history:: not pertinent. ROS: 03:31 Constitutional: Negative for fever, chills, and weight loss, Cardiovascular: Negative rt for chest pain, palpitations, and edema, Respiratory: Negative for shortness of breath, cough, wheezing, and pleuritic chest pain, Abdomen/GI: Negative for abdominal pain, nausea, vomiting, diarrhea, and constipation, MS/Extremity: Negative for injury and deformity, Skin: Negative for injury, rash, and discoloration, 03:31 Neuro: Positive for tremor, Negative for altered mental status, 03:31 Psych: Positive for anxiety, Negative for depression, Exam: 03:31 Constitutional: This is a well developed, well nourished patient who is awake, alert, rt and in no acute distress. Head/Face: Normocephalic, atraumatic. Chest/axilla: Normal chest wall appearance and motion. Nontender with no deformity. No lesions are appreciated. Cardiovascular: Regular rate and rhythm with a normal S1 and S2. No gallops, murmurs, or rubs. Normal PMI, no JVD. No pulse deficits. Respiratory: Lungs have equal breath sounds bilaterally, clear to auscultation and percussion. No rales, rhonchi or wheezes noted. No increased work of breathing, no retractions or nasal flaring. Abdomen/GI: Soft, non-tender, with normal bowel sounds. No distension or tympany. No guarding or rebound. No evidence of tenderness throughout. Skin: Warm, dry with normal turgor. Normal color with no rashes, no lesions, and no evidence of cellulitis. MS/ Extremity: Pulses equal, no cyanosis. Neurovascular intact. Full, normal range of motion. Neuro: Awake and alert, GCS 15, oriented to person, place, time, and situation. Cranial nerves II-XII grossly intact. Motor strength 5/5 in all extremities. Sensory grossly intact. Cerebellar exam normal. Normal gait. Psych: Awake, alert, with orientation to person, place and time. Behavior, mood, and affect are within normal limits. 03:33 ECG was reviewed by the Attending Physician. rt Vital Signs: 02:50 BP 139 / 89; Pulse 92; Resp 21 S; Temp 97.3(O); Pulse Ox 99% on R/A; Weight 83 kg; 7 Height 5 ft. 0 in. ; Pain 0/10; 03:00 BP 117 / 68; Pulse 74; Resp 15 S; Pulse Ox 97% on R/A; jw7 04:00 BP 109 / 62; Pulse 72; Resp 17 S; Pulse Ox 96% on R/A; [facility] 02:50 Body Mass Index 35.74 (83.00 kg, 152.4 cm) [facility] 02:50 Pain Scale: Adult [facility] MDM: 03:03 Patient medically screened. rt 04:14 Differential Diagnosis Panic attack, medication withdrawal, electrolyte disturbance, rt dysrhythmia. Data reviewed: vital signs, nurses notes, lab test result(s), EKG. I considered the following discharge prescriptions or medication management in the emergency department Medications were administered in the Emergency Department. See MAR. Test considered but Not performed: CT: Mentation is normal, no neurologic deficits, CT scan not indicated. Care significantly affected by the following chronic conditions: Hypertension. Counseling: I had a detailed discussion with the patient and/or guardian regarding the historical points, exam findings, and any diagnostic results supporting the discharge/admit diagnosis, lab results, the need for outpatient follow up, to return to the emergency department if symptoms worsen or persist or if there are any questions or concerns that arise at home. Response to treatment: the patient's symptoms have resolved after treatment. 04/07 03:13 Order name: CBC with Diff; Complete Time: 04:07 rt 04/07 03:13 Order name: CMP; Complete Time: 04: rt 04/07 03:13 Order name: Magnesium; Complete Time: 04:07 rt 04/07 03:13 Order name: Troponin High Sensitivity; Complete Time: 04:07 rt 04/07 03:13 Order name: EKG; Complete Time: 03:15 rt 04/07 03:13 Order name: EKG - Nurse/Tech; Complete Time: 03:25 rt EC:33 Rate is 81 beats/min. Rhythm is regular, Normal Sinus Rhythm with No ectopy. QRS [place] rt is Normal. [place] interval is normal. QRS interval is normal. QT interval is normal. No Q waves. Clinical impression: NSR w/ Non-specific ST/T Changes. Administered Medications: 03:20 Drug: LORazepam PO 1 mg PO once Route: PO; jw7 04:13 Follow up: Response: No adverse reaction; Marked relief of symptoms jw7 Disposition Summary: 04/07/23 04:14 Discharge Ordered Notes: Location: Home rt Problem: new rt Symptoms: have improved rt Condition: Stable rt Diagnosis - Panic attack rt Followup: rt - With: Private Physician - When: 2 - 3 days - Reason: Discharge Instructions: - Discharge Summary Sheet rt - Panic Attack rt Forms: - Medication Reconciliation Form rt - Thank You Letter rt - Antibiotic Education rt - Prescription Opioid Use rt - Patient Portal Instructions rt - Leadership Thank You Letter rt Signatures: Dispatcher Alexa Figueredo RN RN jw7 Kvng Nielson MD MD rt Corrections: (The following items were deleted from the chart) 03:52 03:10 Home Meds: Metoprolol Tartrate Oral; jw7 jw7
--- NOTE | 2023-04-07 04:14 | ER ---
Nurse's Notes [facility] Name: Leelee Bhatti Age: 87 yrs Sex: Female : 1935 Arrival Date: 04/07/2023 Time: 02:57 Bed 3 Private MD: Diagnosis: Panic attack Presentation: 04/07 02:50 Chief complaint: Patient states: "I haven't taken my sertraline in at least a week or jw7 two because my doctor didn't refill my prescription and I started having night terrors and shaking". 02:50 Method Of Arrival: EMS: [facility] jw7 02:50 Coronavirus screen: At this time, the client does not indicate any symptoms associated jw7 with coronavirus-19. Ebola Screen: No symptoms or risks identified at this time. Initial Sepsis Screen: Does the patient meet any 2 criteria? No. Patient's initial sepsis screen is negative. Does the patient have a suspected source of infection? No. Patient's initial sepsis screen is negative. Risk Assessment: Do you want to hurt yourself or someone else? Patient reports no desire to harm self or others. Onset of symptoms was April 06, 2023. 02:50 Acuity: GALEN 3 jw7 Triage Assessment: 03:10 General: Appears in no apparent distress. comfortable, well groomed, well nourished, jw7 Behavior is calm, cooperative. Pain: Denies pain. EENT: No deficits noted. No signs and/or symptoms were reported regarding the EENT system. Neuro: Perez Agitation-Sedation Scale (RASS): 0 - Alert and Calm Level of Consciousness is awake, alert, obeys commands, Oriented to person, place, time, situation, Reports Shaking and night terrors. Cardiovascular: Capillary refill < 3 seconds Clubbing of nail beds is absent JVD is absent Patient's skin is warm and dry. Respiratory: Airway is patent Trachea midline Respiratory effort is even, unlabored, Respiratory pattern is regular, symmetrical. GI: Abdomen is round non-distended, Bowel sounds present X 4 quads. Abd is soft and non tender X 4 quads. : No deficits noted. No signs and/or symptoms were reported regarding the genitourinary system. Derm: Skin is intact, is fragile, Skin is dry, Skin is normal, Skin temperature is warm. Musculoskeletal: Circulation, motion, and sensation intact. Range of motion: intact in all extremities. Historical: - Allergies: 03:10 Niacin; jw7 - Home Meds: 03:10 amlodipine oral [Active]; sertraline oral [Active]; jw7 03:10 hydralazine/lisinopril [Active]; pravastatin oral [Active]; jw7 - PMHx: 03:10 Hypertensive disorder; Anxiety; Major depressive disorder; jw7 - PSHx: 03:10 Ankle (L); jw7 - Immunization history:: Adult Immunizations up to date, Client reports receiving the 2nd dose of the Covid vaccine, Pneumococcal vaccine is up to date, Flu vaccine is not up to date. It has been more than one year since last vaccine. - Social history:: Smoking status: Patient denies any tobacco usage or history of. - Family history:: not pertinent. Screenin:14 [facility] ED Fall Risk Assessment (Adult) History of falling in the last 3 months, jw7 including since admission No falls in past 3 months (0 pts) Confusion or Disorientation No (0 pts) Intoxicated or Sedated No (0 pts) Impaired Gait Yes (1 pt) Mobility Assist Device Used No (0 pt) Altered Elimination No (0 pt) Score/Fall Risk Level 0 - 2 = Low Risk Oriented to surroundings, Maintained a safe environment, Educated pt \\T\\ family on fall prevention, incl call for assistance when getting out of bed. Abuse screen: Denies threats or abuse. Denies injuries from another. Nutritional screening: No deficits noted. Tuberculosis screening: No symptoms or risk factors identified. Assessment: 03:15 General: see triage assessment. jw7 04:30 Reassessment: Patient appears in no apparent distress at this time. Patient and/or jw7 family updated on plan of care and expected duration. Pain level reassessed. Patient is alert, oriented x 3, equal unlabored respirations, skin warm/dry/pink. Patient states feeling better. Patient states symptoms have improved. Vital Signs: 02:50 BP 139 / 89; Pulse 92; Resp 21 S; Temp 97.3(O); Pulse Ox 99% on R/A; Weight 83 kg; jw7 Height 5 ft. 0 in. ; Pain 0/10; 03:00 BP 117 / 68; Pulse 74; Resp 15 S; Pulse Ox 97% on R/A; jw7 04:00 BP 109 / 62; Pulse 72; Resp 17 S; Pulse Ox 96% on R/A; jw7 02:50 Body Mass Index 35.74 (83.00 kg, 152.4 cm) jw7 02:50 Pain Scale: Adult jw7 ED Course: 03:02 Patient arrived in ED. [id number] 03:02 Kvng Nielson MD is Attending Physician. rt 03:10 Triage completed. jw7 03:10 Arm band placed on. jw7 03:14 Patient has correct armband on for positive identification. Bed in low position. Call jw7 light in reach. Side rails up X2. 03:35 Initial lab(s) drawn, by ED staff, sent to lab. EKG done, by ED staff, reviewed by Kvng Nielson MD. Inserted saline lock: 22 gauge in right wrist, using aseptic technique. Blood collected. 04:35 No provider procedures requiring assistance completed. IV discontinued, intact, jw7 bleeding controlled, No redness/swelling at site. Pressure dressing applied. 04:36 Provided Education on: discharge instructions. jw7 Administered Medications: 03:20 Drug: LORazepam PO 1 mg PO once Route: PO; jw7 04:13 Follow up: Response: No adverse reaction; Marked relief of symptoms jw7 Medication: 04:36 VIS not applicable for this client. jw7 Outcome: 04:14 Discharge ordered by . rt 04:35 Discharged to home via wheelchair, with family, jw7 04:35 Condition: stable 04:35 Discharge instructions given to patient, Instructed on discharge instructions, follow up and referral plans. Demonstrated understanding of instructions, follow-up care, 04:37 Patient left the ED. jw7 Signatures: Alexa Hubbard, RN RN jwKvng Morin MD MD rt Mimi Mills RN RN [id number] Corrections: (The following items were deleted from the chart) 03:15 03:14 Patient has correct armband on for positive identification. Bed in low position. jw7 Call light in reach. jw7 03:52 03:10 Home Meds: Metoprolol Tartrate Oral; jw7 jw7
[2023-04-07 08:43] VITALS: BP 109/62; O2SAT 96
--- NOTE | 2023-04-09 12:27 | EKG ---
Test Date: 2023-04-07 Test Time: 03:21:51 Buffet Manager: LETY MEASUREMENT RESULTS: Intervals: Rate: 81 AK: 148 QRSD: 80 QT: 384 QTc: 446 Verner: P: 62 AK: 148 QRS: 69 T: 93 INTERPRETIVE STATEMENTS: Normal sinus rhythm Low voltage QRS ST abnormality, possible digitalis effect Abnormal ECG Compared to ECG 10/21/2020 17:44:37 ST (T wave) deviation now present Electronically Signed On 04-09-23 12:21:05 INTEGRITY SPECIALIST by Nestor Kennedy
== END ==
LOC: ER 02:57
DX: F41.0 Panic disorder [episodic paroxysmal anxiety] (principal); I10 Essential (primary) hypertension; Z91.048 Other nonmedicinal substance allergy status
CPT/HCPCS: 36415; 80053; 83735; 84484; 85025; 93005; 99284

== ENCOUNTER 2023-12-19 18:08 | Emergency (ER) | payer OTHER ==
--- OUTSIDE RECORDS SUMMARY | 2023-12-19 18:11 | XMS REPORT | Continuity of Care Document ---
Author Name Unknown Address [address] [place] [address] [address] thconnect Address [address] [facility] 1 495 [place] [address] Care Team Providers Care Gardening Instructor Name Role Phone Sahil Piedra Attending Clinician Unavailable [email or web address]_S Attending Clinician Unavaila ble [email or web address]_S Admitting Clinician Unavaila ble Encounters Start Date/Time End Date/Time Encounter Type Admission Type Attending Clinicians Care Facility Care Department Encounter ID Source 2022-07-14 14:39:02 Outpatient [facility]adeo Sahil [facility] [id number] [facility] 2022-07-12 08:06:00 Outpatient Sahil Piedra [facility] [id number] [facility] 2022-07-10 09:04:02 Outpatient Tadeo Sahil [facility] [id number] [facility] 2023-01-30 00:00:00 2023-01-30 00:00:00 Outpatient [email or web address] diyala_S [facility] [id number] [facility]
--- NOTE | 2023-12-19 19:22 | RAD REPORT ---
Procedure: Chest Single View History: Abdominal pain Comparison: 2020 The lungs appear clear of acute infiltrate. No significant pleural effusion noted. The heart is normal size. IMPRESSION: No acute abnormality is displayed.
[2023-12-19 19:58] LABS: Absolute Eosinophils 0.1 K/uL (0-0.5); Absolute Lymphocytes (CBC) 1.5 K/uL (0.7-4.9); Absolute Monocytes 0.5 K/uL (0.1-1.3); Absolute Neutrophil 4.7 K/uL (1.8-8.0); Basophils % 0.6 % (0-1.3); Eosinophils % 1.5 % (0-4.4); Hemoglobin 14.1 g/dL (12.0-15.0); Lymphocytes % 22.6 % (15.3-44.8); MCH 31.7 pg (27.0-35.0); MCHC 33.5 g/dL (32.0-36.0); MCV 94.5 fL (80-100); MPV 7.6 fL (7.6-11.3); Monocytes % 7.4 % (3.3-12.3); Neutrophils % 67.9 % (41.7-73.7); Nucleated Red Blood Cells % 0.3 % (0-0); Platelets 204 thou/uL (152-406); RBC Red Blood Cell Count 4.44 M/uL (3.86-4.86); Red Cell Distribution Width 13.6 % (12.1-15.2)
[2023-12-19 20:04] LABS: PT Prothrombin Time 11.2 SECONDS (9.4-12.5)
[2023-12-19 20:10] LABS: Specific Gravity 1.015 (1.005-1.030); Sqamous Epithelial <5 /HPF (None Seen); Urine Bacteria None Seen /HPF (<20); Urine Bilirubin NEGATIVE (Negative); Urine Blood Negative (Negative); Urine Clarity Extremely Turbid (Clear); Urine Color Light-Yellow (Yellow); Urine Culture Reflex Order NOT NEEDED; Urine Glucose NEGATIVE (Negative); Urine Ketones NEGATIVE (Negative); Urine Microscopic Reflex YN ORDER UMIC; Urine Nitrite NEGATIVE (Negative); Urine Protein NEGATIVE (Negative); Urine RBC <5 /HPF (None Seen); Urine Urobilinogen Normal (Normal); Urine WBC <5 /HPF (<5)
[2023-12-19 20:19] LABS: ALT/SGPT 25 U/L (13-56); AST/SGOT 16 U/L (15-37); Albumin 3.4 g/dL (3.4-5.0); Albumin/Globulin Ratio 0.9 (1.1-1.8); Alkaline Phosphatase 64 U/L (45-117); Anion Gap 8.5 mEq/L (5.0-15.0); BUN Blood Urea Nitrogen 18 mg/dL (7-18); Bicarbonate 27 mEq/L (21-32); Bilirubin Total 0.3 mg/dL (0.2-1.0); Glomerular Filtration Rate 50 ml/min (=/>90); Glucose Level 111 mg/dL (74-106); Lipase 43 U/L (13-75); NT PRO-BNP 40 pg/mL (<450); Potassium 3.5 mEq/L (3.5-5.1); Protein, Total 7.4 g/dL (6.4-8.2); Sodium Level 135 mEq/L (136-145); Troponin High Sensitivity 4.4 pg/mL (<58.9)
[2023-12-19 20:20] LABS: Bilirubin Direct < 0.2 mg/dL (0-0.2); Bilirubin Indirect, Calculated 0.1 mg/dL (0.2-0.8)
[2023-12-19] MEDS ORDERED: NA CHLORIDE 0.9% 1,000 ML ONE (20:20)
--- NOTE | 2023-12-19 22:08 | RAD REPORT ---
EXAMINATION: CT ABDOMEN AND PELVIS WITH CONTRAST CLINICAL INDICATION: Abdominal pain TECHNIQUE: CT abdomen and pelvis was performed, after the adminis tration of 100 cc Isovue-300.. Sagittal and coronal reconstructions were obtained. One or more of the following dose reduction techniques were used: Automated exposure control, adjustment of the mA a nd/or kV according to patient size, and/or iterative reconstruction. Unless otherwise specified, incidental findings do not require dedicated imaging follow-up. [id number]. COMPARISON: 2014 FINDINGS: The liver, spleen, pancreas, right adrenal and kidneys appear unremarkable Small left adrenal nodule unchanged with an adenoma. No follow-up There is no evidence of diverticulitis No adnexal mass. 2 cm lipoma within the distal stomach. Small right posterior diaphragmatic hernia contains fat. Small hiatal hernia : IMPRESSION: No acute abnormalities displayed
[2023-12-19] MEDS ORDERED: AMOX/K CLAV 875 MG TAB ONE (22:24)
--- NOTE | 2023-12-19 22:28 | ER ---
Nurse's Notes [facility] Name: Leelee Bhatti Age: 88 yrs Sex: Female : 1935 Arrival Date: 12/19/2023 Time: 18:08 Bed 17 Private MD: Diagnosis: Abdominal pain, unspecified Presentation: 12/18 18:42 Chief complaint: Patient states: Pain started yesterday, LLQ. Hurts when I walk. No tm6 nausea or vomiting. Coronavirus screen: Vaccine status: Patient reports being unvaccinated. Ebola Screen: Patient negative for fever greater than or equal to 101.5 degrees Fahrenheit, and additional compatible Ebola Virus Disease symptoms Patient denies exposure to infectious person. Patient denies travel to an Ebola-affected area in the 21 days before illness onset. No symptoms or risks identified at this time. Initial Sepsis Screen: Does the patient meet any 2 criteria? No. Patient's initial sepsis screen is negative. Does the patient have a suspected source of infection? No. Patient's initial sepsis screen is negative. Risk Assessment: Do you want to hurt yourself or someone else? Patient reports no desire to harm self or others. Onset of symptoms was December 18, 2023. 18:42 Method Of Arrival: Ambulatory tm6 18:42 Acuity: GALEN 3 tm6 Triage Assessment: 18:43 General: Appears in no apparent distress. Behavior is calm, cooperative. Pain: tm6 Complains of pain in left lower quadrant Pain radiates to left low back Pain currently is 4 out of 10 on a pain scale. at worst was 8 out of 10 on a pain scale. Quality of pain is described as Pain began 1 day ago. EENT: No signs and/or symptoms were reported regarding the EENT system. Neuro: Level of Consciousness is awake, alert, obeys commands, Oriented to person, place, time, situation. Cardiovascular: Patient's skin is warm and dry. Respiratory: Airway is patent Respiratory effort is even, unlabored, Respiratory pattern is regular, symmetrical. GI: Abdomen is round non-distended, Reports lower abdominal pain. : No signs and/or symptoms were reported regarding the genitourinary system. Derm: No signs and/or symptoms reported regarding the dermatologic system. Musculoskeletal: No signs and/or symptoms reported regarding the musculoskeletal system. Historical: - Allergies: 18:43 Niacin; tm6 - Home Meds: 18:43 amlodipine oral [Active]; hydralazine/lisinopril [Active]; pravastatin oral [Active]; tm6 sertraline oral [Active]; - PMHx: 18:43 Anxiety; Hypertensive disorder; Major Depressive Disorder; Hypercholesterolemia; tm6 - PSHx: 18:43 Ankle (L); tm6 - Immunization history:: Client reports having NOT received the Covid vaccine. - Infectious Disease History:: Denies. - Social history:: Smoking status: Patient denies any tobacco usage or history of. - Family history:: not pertinent. Screenin:51 [facility] ED Fall Risk Assessment (Adult) History of falling in the last 3 months, cp4 including since admission No falls in past 3 months (0 pts) Confusion or Disorientation No (0 pts) Intoxicated or Sedated No (0 pts) Impaired Gait No (0 pts) Mobility Assist Device Used No (0 pt) Altered Elimination No (0 pt) Score/Fall Risk Level 0 - 2 = Low Risk Oriented to surroundings, Maintained a safe environment, Assessed \\T\\ reinforced patient's understanding of fall precautions, Hourly rounding (assess needs \\T\\ fall precautionary measures) done. Abuse screen: Denies threats or abuse. Nutritional screening: No deficits noted. Tuberculosis screening: No symptoms or risk factors identified. Assessment: 19:51 General: Appears in no apparent distress. comfortable, Behavior is calm, cooperative, cp4 appropriate for age. Pain: Complains of pain in back and left low back and abdomen and left lower quadrant Pain currently is 4 out of 10 on a pain scale. Neuro: Level of Consciousness is awake, alert, obeys commands, Oriented to person, place, time, situation. Cardiovascular: Patient's skin is warm and dry. Respiratory: Airway is patent Respiratory effort is even, unlabored. GI: Bowel sounds present X 4 quads. Abd is soft and non tender X 4 quads. : No signs and/or symptoms were reported regarding the genitourinary system. EENT: No signs and/or symptoms were reported regarding the EENT system. Derm: No signs and/or symptoms reported regarding the dermatologic system. Musculoskeletal: No signs and/or symptoms reported regarding the musculoskeletal system. 20:05 Reassessment: Patient refusing to wear monitoring equipment. States " You just can't cp4 leave me here hooked up to all this." Provider notified. 21:00 Reassessment: Patient appears in no apparent distress at this time. Patient and/or cp4 family updated on plan of care and expected duration. Pain level reassessed. Patient is alert, oriented x 3, equal unlabored respirations, skin warm/dry/pink. 22:00 Reassessment: Patient appears in no apparent distress at this time. Patient and/or cp4 family updated on plan of care and expected duration. Pain level reassessed. Patient is alert, oriented x 3, equal unlabored respirations, skin warm/dry/pink. 22:40 Reassessment: Patient tore off prescription for zofran stating "I don't have nausea. I cp4 don't need this. You are just trying to cost me money." Patient also stating "I never even saw a doctor" right after [employer] stepped out of room. Patient refused discharge vital signs. 22:47 Reassessment: Patient stated "My abdomen doesn't even hurt, why did they diagnose me cp4 with abdominal pain. I never say a doctor the entire time I was here.". Vital Signs: 18:41 BP 138 / 72; Pulse 71; Resp 19; Temp 98.6(O); Pulse Ox 97% on R/A; Weight 81.65 kg; tm6 Height 5 ft. 4 in. ; Pain 4/10; 18:41 Body Mass Index 30.90 (81.65 kg, 162.56 cm) tm6 18:41 Pain Scale: Adult tm6 ED Course: 18:12 Patient arrived in ED. im 18:17 Robbie Price MD is Attending Physician. sree 18:43 Triage completed. tm6 18:43 Arm band placed on right wrist. tm6 18:58 XRAY Chest (1 view) In Process Unspecified. EDMS 19:12 Larissa Shah is Primary Nurse. cp4 19:50 Lipase Sent. cp4 19:50 Urinalysis w/ reflexes Sent. cp4 19:50 Lactate w/ 2H reflex if indic. Sent. cp4 19:51 Bed in low position. Call light in reach. Side rails up X 1. Provided Education on: cp4 abdominal pain. 19:51 Basic Metabolic Panel Sent. cp4 19:51 CBC with Diff Sent. cp4 19:51 LFT's Sent. cp4 19:51 Magnesium Sent. cp4 19:51 NT PRO-BNP Sent. cp4 19:51 PT-INR Sent. cp4 19:51 Troponin HS Sent. cp4 19:51 No provider procedures requiring assistance completed. Initial lab(s) drawn, by ED cp4 staff, sent to lab. Urine collected: clean catch specimen, clear. Inserted saline lock: 22 gauge in left antecubital area, using aseptic technique. Blood collected. Flushed with 10 mL NS. 21:30 CT Abd/Pelvis - IV Contrast Only In Process Unspecified. EDMS 22:46 intact, bleeding controlled, No redness/swelling at site. Pressure dressing applied. cp4 Administered Medications: 20:33 Drug: NS 0.9% IV 500 ml IV at bolus once Route: IV; Rate: bolus; Site: left antecubital;cp4 22:49 Follow up: IV Status: Completed infusion; IV Intake: 500ml cp4 21:00 Drug: NS 0.9% IV 1000 ml IV at 125 ml/hr continuous Route: IV; Rate: 125 ml/hr; Site: cp4 left antecubital; 22:50 Follow up: Response: No adverse reaction; IV Status: Completed infusion cp4 22:21 Not Given (Physician Discretion): [id number] mg 200 ml IVPB once over 60 mins cp 22:21 Not Given (Physician Discretion): [id number] mg 100 ml IVPB at 200 ml/hr once cp over 30 mins 22:22 Not Given (Physician Discretion): rocephin1 grams IV at per protocol once; Given slow cp IV push per pharmacy instructions 22:27 Drug: Amoxicillin-Clavulanate PO 875 mg PO once Route: PO; cp4 22:39 Follow up: Response: No adverse reaction cp4 22:38 Drug: Dicyclomine PO 20 mg PO once Route: PO; cp4 22:40 Follow up: Response: No adverse reaction cp4 22:39 Drug: Ketorolac IVP 15 mg IVP once Route: IVP; Site: left antecubital; cp4 22:39 Follow up: Response: No adverse reaction cp4 Medication: 19:51 VIS not applicable for this client. cp4 Intake: 22:49 IV: 500ml; Total: 500ml. cp4 Outcome: 22:27 Discharge ordered by . cp 22:46 Discharged to home via wheelchair, cp4 22:46 Condition: stable 22:46 Discharge instructions given to patient, Instructed on discharge instructions, follow up and referral plans. medication usage, Demonstrated understanding of instructions, follow-up care, medications, Prescriptions given X 3, 22:48 Patient left the ED. cp4 Addendum: 12/22/2023 11:23 Addendum: Culture Results: Positive urine culture. Prescription called-in to pharmacy [facility] of choice. Macrobid 100 mg BID x 7 days called in to [facility] for DEEPTI Watson. Signatures: Dispatcher [employer] EDMS Robbie Price MD MD cha Page, Corey, PA PA Aundrea Lutz, RN RN Ana Santana Christina 4 Odessa Betancourt RN RN tm6
--- NOTE | 2023-12-19 22:28 | EDPHYS ---
Physician Documentation [facility] Name: Leelee Bhatti Age: 88 yrs Sex: Female : 1935 Arrival Date: 12/19/2023 Time: 18:08 Bed 17 Private MD: OBI Physician Robbie Price HPI: 12/18 19:43 This 88 yrs old Female presents to ER via Ambulatory with complaints of sree Abdominal Pain. 19:43 The patient presents with abdominal pain in the lower abdomen, in the left lower sree quadrant, abdominal distention in the upper abdomen, in the lower abdomen. Onset: The symptoms/episode began/occurred 3 day(s) ago. The symptoms do not radiate. Associated signs and symptoms: none. The symptoms are described as crampy. Modifying factors: The symptoms are alleviated by nothing, the symptoms are aggravated by walking. The patient has experienced similar episodes in the past, a few times. Historical: - Allergies: 18:43 Niacin; tm6 - Home Meds: 18:43 amlodipine oral [Active]; hydralazine/lisinopril [Active]; pravastatin oral [Active]; tm6 sertraline oral [Active]; - PMHx: 18:43 Anxiety; Hypertensive disorder; Major Depressive Disorder; Hypercholesterolemia; tm6 - PSHx: 18:43 Ankle (L); tm6 - Immunization history:: Client reports having NOT received the Covid vaccine. - Infectious Disease History:: Denies. - Social history:: Smoking status: Patient denies any tobacco usage or history of. - Family history:: not pertinent. ROS: 19:43 Constitutional: Negative for fever, chills, and weight loss, Eyes: Negative for injury, sree pain, redness, and discharge, ENT: Negative for injury, pain, and discharge, Neck: Negative for injury, pain, and swelling, Cardiovascular: Negative for chest pain, palpitations, and edema, Respiratory: Negative for shortness of breath, cough, wheezing, and pleuritic chest pain, Back: Negative for injury and pain, : Negative for injury, bleeding, discharge, and swelling, MS/Extremity: Negative for injury and deformity, Skin: Negative for injury, rash, and discoloration, Neuro: Negative for headache, weakness, numbness, tingling, and seizure, Psych: Negative for depression, anxiety, suicide ideation, homicidal ideation, and hallucinations, Allergy/Immunology: Negative for hives, rash, and allergies, Endocrine: Negative for neck swelling, polydipsia, polyuria, polyphagia, and marked weight changes, Hematologic/Lymphatic: Negative for swollen nodes, abnormal bleeding, and unusual bruising, 19:43 Abdomen/GI: Positive for abdominal pain, of the left lower quadrant, Exam: 19:43 Constitutional: This is a well developed, well nourished patient who is awake, alert, sree and in no acute distress. Head/Face: Normocephalic, atraumatic. Eyes: Pupils equal round and reactive to light, extra-ocular motions intact. Lids and lashes normal. Conjunctiva and sclera are non-icteric and not injected. Cornea within normal limits. Periorbital areas with no swelling, redness, or edema. ENT: Nares patent. No nasal discharge, no septal abnormalities noted. Tympanic membranes are normal and external auditory canals are clear. Oropharynx with no redness, swelling, or masses, exudates, or evidence of obstruction, uvula midline. Mucous membranes moist. Neck: Trachea midline, no thyromegaly or masses palpated, and no cervical lymphadenopathy. Supple, full range of motion without nuchal rigidity, or vertebral point tenderness. No Meningismus. Chest/axilla: Normal chest wall appearance and motion. Nontender with no deformity. No lesions are appreciated. Cardiovascular: Regular rate and rhythm with a normal S1 and S2. No gallops, murmurs, or rubs. Normal PMI, no JVD. No pulse deficits. Respiratory: Lungs have equal breath sounds bilaterally, clear to auscultation and percussion. No rales, rhonchi or wheezes noted. No increased work of breathing, no retractions or nasal flaring. Back: No spinal tenderness. No costovertebral tenderness. Full range of motion. Female : Normal external genitalia. Skin: Warm, dry with normal turgor. Normal color with no rashes, no lesions, and no evidence of cellulitis. MS/ Extremity: Pulses equal, no cyanosis. Neurovascular intact. Full, normal range of motion. Neuro: Awake and alert, GCS 15, oriented to person, place, time, and situation. Cranial nerves II-XII grossly intact. Motor strength 5/5 in all extremities. Sensory grossly intact. Cerebellar exam normal. Normal gait. Psych: Awake, alert, with orientation to person, place and time. Behavior, mood, and affect are within normal limits. 19:43 Abdomen/GI: Inspection: abdomen appears normal, Bowel sounds: normal, Palpation: moderate abdominal tenderness, in the left lower quadrant, Liver: no appreciated palpable abnormalities, Hernia: not appreciated, 19:59 ECG was reviewed by the Attending Physician. [facility] Vital Signs: 18:41 BP 138 / 72; Pulse 71; Resp 19; Temp 98.6(O); Pulse Ox 97% on R/A; Weight 81.65 kg; tm6 Height 5 ft. 4 in. ; Pain 4/10; 18:41 Body Mass Index 30.90 (81.65 kg, 162.56 cm) [facility] 18:41 Pain Scale: Adult 6 MDM: 18:17 Patient medically screened. [facility] 19:45 Differential diagnosis: diverticulitis, gastritis, non-specific abd pain, pancreatitis, sree Peptic Ulcer Disease, Pyelonephritis, urinary tract infection. Data reviewed: vital signs, nurses notes, lab test result(s), EKG, radiologic studies, CT scan, plain films. Consideration of Admission/Observation Escalation of care including admission/observation considered. I considered the following discharge prescriptions or medication management in the emergency department Medications were administered in the Emergency Department. See MAR. Independent interpretation of the following test(s) in the Emergency Department EKG: See my EKG interpretation above. Test considered but Not performed: Ultrasound NO ABD USG. Care significantly affected by the following chronic conditions: Hypertension, Obesity, DEPRESSION, ANXIETY. Counseling: I had a detailed discussion with the patient and/or guardian regarding the historical points, exam findings, and any diagnostic results supporting the discharge/admit diagnosis, lab results, radiology results. 12/18 18:20 Order name: Basic Metabolic Panel; Complete Time: 20:20 [facility] 12/18 21:19 Interpretation: Normal except: NA 135; GLUC 111; CRE 1.08; GFR 50; CA 10.3. cp 12/18 18:20 Order name: CBC with Diff; Complete Time: 20:19 [facility] 12/18 21:20 Interpretation: Reviewed. cp 12/18 18:20 Order name: LFT's; Complete Time: 20:20 [facility] 12/18 21:20 Interpretation: Normal except: IBILI, CALC 0.1; GLOB 4.0; A/G 0.9. 12/18 18:20 Order name: Magnesium; Complete Time: 20:20 [facility] 12/18 21:56 Interpretation: Reviewed. 12/18 18:20 Order name: NT PRO-BNP; Complete Time: 20:20 [facility] 12/18 21:56 Interpretation: Reviewed. 12/18 18:20 Order name: PT-INR; Complete Time: 20:19 [facility] 12/18 21:57 Interpretation: Reviewed. 12/18 18:20 Order name: Troponin HS; Complete Time: 20:20 [facility] 12/18 21:57 Interpretation: Reviewed. 12/18 18:20 Order name: Lactate w/ 2H reflex if indic.; Complete Time: 20:41 [facility] 12/18 18:20 Order name: Urinalysis w/ reflexes; Complete Time: 20:19 [facility] 12/18 21:20 Interpretation: Normal except: [facility] Extremely Turbid; UESTR 25; AMANDA Cx 4+. 12/18 18:20 Order name: Lipase; Complete Time: 20:20 [facility] 12/18 20:20 Order name: Urine Culture [facility] 12/18 18:20 Order name: XRAY Chest (1 view); Complete Time: 20:19 [facility] 12/18 18:20 Order name: CT Abd/Pelvis - IV Contrast Only; Complete Time: 22:18 [facility] 12/18 22:18 Interpretation: Report reviewed. 12/18 18:20 Order name: EKG; Complete Time: 18:23 [facility] 12/18 18:20 Order name: Cardiac monitoring; Complete Time: 19:27 [facility] 12/18 18:20 Order name: EKG - Nurse/Tech; Complete Time: 19:50 [facility] 12/18 18:20 Order name: IV Saline Lock; Complete Time: 19:51 [facility] 12/18 18:20 Order name: Labs collected and sent; Complete Time: 19:51 [facility] 12/18 18:20 Order name: O2 Per Protocol; Complete Time: 19:27 [facility] 12/18 18:20 Order name: O2 Sat Monitoring; Complete Time: 19:27 sree EC:59 Rate is 58 beats/min. Rhythm is regular. QRS [place] is Normal. PA interval is normal. QRS sree interval is normal. QT interval is normal. No Q waves. T waves are Normal. No ST changes noted. Clinical impression: Sinus bradycardia and No evidence of ischemia. Interpreted by me. Reviewed by me. Administered Medications: 20:33 Drug: NS 0.9% IV 500 ml IV at bolus once Route: IV; Rate: bolus; Site: left antecubital;cp4 22:49 Follow up: IV Status: Completed infusion; IV Intake: 500ml cp4 21:00 Drug: NS 0.9% IV 1000 ml IV at 125 ml/hr continuous Route: IV; Rate: 125 ml/hr; Site: cp4 left antecubital; 22:50 Follow up: Response: No adverse reaction; IV Status: Completed infusion cp4 22:21 Not Given (Physician Discretion): [id number] mg 200 ml IVPB once over 60 mins cp 22:21 Not Given (Physician Discretion): [id number] mg 100 ml IVPB at 200 ml/hr once cp over 30 mins 22:22 Not Given (Physician Discretion): rocephin1 grams IV at per protocol once; Given slow cp IV push per pharmacy instructions 22:27 Drug: Amoxicillin-Clavulanate PO 875 mg PO once Route: PO; cp4 22:39 Follow up: Response: No adverse reaction cp4 22:38 Drug: Dicyclomine PO 20 mg PO once Route: PO; cp4 22:40 Follow up: Response: No adverse reaction cp4 22:39 Drug: Ketorolac IVP 15 mg IVP once Route: IVP; Site: left antecubital; cp4 22:39 Follow up: Response: No adverse reaction cp4 Disposition Summary: 12/19/23 22:27 Discharge Ordered Notes: Location: Home cp Problem: new cp Symptoms: have improved cp Condition: Stable cp Diagnosis - Abdominal pain, unspecified cp Followup: cp - With: Private Physician - When: 2 - 3 days - Reason: Recheck today's complaints Discharge Instructions: - Discharge Summary Sheet cp - Abdominal Pain, Adult cp Forms: - Medication Reconciliation Form cp - Antibiotic Education cp - Prescription Opioid Use cp - Patient Portal Instructions cp - Leadership Thank You Letter cp Prescriptions: - Augmentin 875-125 mg Oral Tablet - take 1 tablet ORAL route every 12 hours for 10 days; 20 tablet; Refills: 0, cp Product Selection Permitted - Zofran 4 mg Oral Tablet - take 1 tablet ORAL route every 12 hours As needed; 20 tablet; Refills: 0, cp Product Selection Permitted - dicyclomine 20 mg Oral tablet - take 1 tablet ORAL route 4 times per day; 30 tablet; Refills: 0, Product cp Selection Permitted Signatures: Dispatcher [employer] EDRobbie Donohue MD MD cha Page, Corey, PA PA Larissa Mccormack cp4 Odessa Betancourt RN RN tm6 Corrections: (The following items were deleted from the chart) 18:23 18:23 Abdomen Pelvis W [id number] ordered. EDMS EDMS
[2023-12-19] MEDS ORDERED: KETOROLAC 30 MG/ML INJ ONE (22:29)
[2023-12-19] MEDS ORDERED: DICYCLOMINE HCL 10 MG CAP ONE (22:29)
[2023-12-19 23:33] VITALS: BP 138/72; TEMP 98.6; O2SAT 97
--- NOTE | 2023-12-20 12:16 | EKG ---
Test Date: 2023-12-19 Test Time: 19:48:20 Threat Analyst: TERRY MEASUREMENT RESULTS: Intervals: Rate: 58 TX: 154 QRSD: 74 QT: 420 QTc: 412 [place]: P: 42 TX: 154 QRS: 59 T: 59 INTERPRETIVE STATEMENTS: Sinus bradycardia Low voltage QRS Borderline ECG Compared to ECG 04/07/2023 03:21:51 Sinus rhythm no longer present ST (T wave) deviation no longer present Electronically Signed On 12-20-23 12:14:50 CDT by Erasmo Ferrari
== END 2023-12-19 22:48 | disposition home or self-care (01) ==
LOC: ER 18:08
DX: R10.32 Left lower quadrant pain (principal); I10 Essential (primary) hypertension; E78.00 Pure hypercholesterolemia, unspecified; F41.9 Anxiety disorder, unspecified; F32.A Depression, unspecified; Z79.899 Other long term (current) drug therapy; Z88.8 Allergy status to other drugs, medicaments and biological substances
CPT/HCPCS: 96361; 93005; 87088; 85025; 81001; 87086; 80048; 36415; 83735; 85610; 80076; 83605; 87077; 87186; 84484; 83690; 83880; 74177; 71045; 96374; 99284; Q9967; J7030

== ENCOUNTER 2024-01-01 13:46 | Emergency (ER) | payer OTHER ==
--- OUTSIDE RECORDS SUMMARY | 2024-01-01 13:49 | XMS REPORT | Continuity of Care Document ---
Author Name Unknown Address [address] [facility] [address] [place] [address] [facility] thconnect Address [address] [facility] [place] [address] Care Team Providers Care Chemical Dependency Professional Name Role Phone Jamison Montanez MD Primary Care Physician [phone] Sahil Piedra Attending Clinician Unavailable Lexi Vela Attending Clinician [phone] REZA RASHID Attending Clinician Unavail able REZA RASHID Attending Clinician Unavail able Reza Rashid MD Attending Clinician [phone] [email or web address] Attending Clinician Unavaila ble REZA RASHID Admitting Clinician Unavail able [email or web address] Admitting Clinician Unavaila ble Payers Payer Name Policy Type Policy Number Effective Date Expirati on Date Source Problems Condition Name Condition Details Condition Category Status Onset Date Resolution Date Last Treatment Date Treating Clinician Comments Source Frequency of micturitio n Frequency of micturitio n Disease Active 09-10 00:00: 00 [facility] Low back pain Low back pain Disease Active 09-10 00:00: 00 [facility] Essential hypertensi on Essential hypertensi on Disease Active 08-25 00:00: 00 [facility] Gastro-eso phageal reflux disease without esophagiti s Gastro-eso phageal reflux disease without esophagiti s Disease Active 08-25 00:00: 00 [facility] Hyperlipid emia Hyperlipid emia Disease Active 08-25 00:00: 00 [facility] Allergies, Adverse Reactions, Alerts Allergy Name Allergy Type Status Severity Reaction(s) Onset Date Inactive Date Treating Clinician Comments Source Niacin Propensi ty to adverse reaction s Active Itching 12-24 00:00: 00 [facility] NIACIN DRUG INGREDI Active ITCHING 12-24 00:00: 00 [facility] Social History Social Habit Start Date Stop Date Quantity Comments Source Sexual orientation [facility] Sex assigned at 1935 00:00:00 1935 00:00:00 [facility] Smoking Status Start Date Stop Date Source Tobacco smoking consumption unknown [facility] Medications Ordered Medication Name Filled Medication Name Start Date Stop Date Current Medication? Ordering Clinician Indication Dosage Frequency Signature (SIG) Comments Components Source naproxen (NAPROSYN) tablet 500 mg 12-25 15:00: 00 12-25 14:27 :00 No 500mg 500 mg, Oral, ONCE, 1 dose, On Sun12/26/23 at 1000, RHONA [facility] traMADoL (ULTRAM) tablet 50 mg 12-25 15:00: 00 12-25 14:27 :00 No 50mg 50 mg, Oral, ONCE, 1 dose, On Sun12/26/23 at 1000, RHONA [facility] naproxen (NAPROSYN) tablet 500 mg 12-25 13:00: 00 Yes 500mg 500 mg, Oral, BID MEALS, First dose on Sun12/26/23 at 0800, Until Discontinu ed, Routine [facility] traMADoL (ULTRAM) tablet 50 mg 12-24 21:45: 00 12-24 20:54 :00 No 50mg 50 mg, Oral, ONCE NOW, 1 dose, On Sun12/25/23 at 1645, Routine [facility] naproxen 250 mg tablet 12-24 00:00: 00 Yes [id number] 250mg Take 1 tablet by mouth in the morning and 1 tablet in the evening. Take with meals. [facility] traMADoL 50 mg tablet 12-24 00:00: 00 01-01 04:59 :00 Yes [id number] 50mg Take 1 tablet by mouth every 6 (six) hours as needed for Pain (scale 7-10) for up to 7 days. Indication s: acute pain [facility] Vital Signs Vital Name Observation Time Observation Value Comments S ource Body height 2023-12-26 16:21:[address] [facility] Systolic blood pressure 2023-12-26 14:00:00 152 mm[Hg] [facility] Diastolic blood pressure 2023-12-26 14:00:00 90 mm[Hg] [facility] Heart rate 2023-12-26 14:00:00 71 /min [facility] Respiratory rate 2023-12-26 14:00:00 16 /min [facility] Oxygen saturation in Arterial blood by Pulse oximetry 2023-12-26 14:00:00 95 /min [facility] Body temperature 2023-12-26 13:38:00 36.72 Mary Jo [facility] Systolic blood pressure 2023-12-25 23:15:00 113 mm[Hg] [facility] Diastolic blood pressure 2023-12-25 23:15:00 85 mm[Hg] [facility] Heart rate 2023-12-25 23:15:00 81 /min [facility] Respiratory rate 2023-12-25 23:15:00 16 /min [facility] Oxygen saturation in Arterial blood by Pulse oximetry 2023-12-25 23:15:00 96 /min [facility] Body temperature 2023-12-25 18:35:00 36.33 Mary Jo [facility] Body height 2023-12-25 18:35:[address] [facility] Body weight 2023-12-25 18:35:[address] [facility] BMI 2023-12-25 18:35:00 33.20 kg/m2 [facility] Procedures Procedure Date / Time Performed Performing Clinicia n Source XR FEMUR 2 VW LEFT 2023-12-25 21:24:04 Reza Rashid [facility] LIPASE 2023-12-25 19:31:00 Reza Rashid [facility] COMP. METABOLIC PANEL (44512) 2023-12-25 19:31:00 Reza Rashid [facility] CBC WITH DIFF 2023-12-25 19:31:00 Reza Rashid [facility] URINALYSIS 2023-12-25 19:31:00 Reza Rashid [facility] LACTIC ACID WHOLE BLOOD 2023-12-25 19:31:00 Reza Rashid [facility] Encounters Start Date/Time End Date/Time Encounter Type Admission Type Attending [facility] Care Facility Care Department Encounter ID Source 2022-07-14 14:39:02 [facility] [id number] [facility] 2022-07-12 08:06:00 Outpatient Piedra, [facility] [id number] [facility] 2022-07-10 09:04:02 Outpatient Piedra, [facility] [id number] [facility] 2023-12-26 08:36:00 2023-12-26 12:12:00 Emergency Lexi Madden [facility] [id number] [facility] 2023-12-25 13:37:00 2023-12-25 18:55:00 Emergency X REZA RASHID JOSEPH [facility] ERT [id number] [facility] 2023-12-25 13:37:00 2023-12-25 18:55:00 Emergency Reza Rashid [facility] [id number] [facility] 2023-01-30 00:00:00 2023-01-30 00:00:00 Outpatient [email or web address] [facility] [id number] [facility] Medical Results Test Description Test Time Test Comments Results Resul t Comments Source XR FEMUR 2 VW LEFT 2023-12-25 21:32:52 XR FEMUR 2 VW LEFT HISTORY: ?leg pain COMPARISON: ?none available. [facility] Notes Date/Time Note Provider Source 2023-12-26 12:10:04 Pt given printed and verbal discharge instructions regarding left leg pain, encouraged hydration. 2 Prescriptions sent to pharmacy. Discussed tramadol/phenergan/Tylenol # 3 side affects and to avoid driving/operating machinery/or engaging in activities requiring alertness while taking.Pt verbalized understanding of instructions, pt awake alert oriented, resp reg unlabored, skin w/d, color appropriate for race, moves all ext well,pt encouraged to follow up with pcp. Advised to seek medical attention for new/prolonged/worsening of symptoms. No adverse reaction to meds given in ER noted upon discharge. Awake, alert oriented, resp reg unlabored, skin w/d, pt leaving amb with steady gait, in no apparent distress. Clari Hamilton RN [facility] 2023-12-26 11:59:26 Pt was discharged and she didn't have a ride home. Pt son was called three times and no answer. Pt daughter in law Pravin Bhatti was called to discuss pick for pt. The daughter in law states she will come and pick pt up from the ER, but she has errands to handle first. When asked about the possible timeframe for pickup, she states it will be a while. The pt Leelee Bhatti was notified about what was discussed with her daughter in law. Pt is sitting in the lobby. [facility] 2023-12-26 11:16:00 Provider in speaking with patient and patients son (son is on the phone) at this time regarding plan of care. [facility] La Shah RN [facility] 2023-12-26 11:09:35 Pt speaking with son at this time. [facility] 2023-12-26 11:09:10 Spoke with social workers, updated DIRECTOR COST on results of possible admission. [facility] Bita London RN [facility] 2023-12-26 11:00:00 area field worker spoke with patient. [facility] 2023-12-26 10:55:57 Received report from Surya. [facility] 2023-12-26 09:51:00 Patient offered toileting and updated on plan of care, Patient connected to monitor, VSS, no distress noted. Bed in locked and low position. [facility] 2023-12-26 08:44:59 Left a message with Rosemary Coombs with social workers. T [facility] 2023-12-26 08:37:25 Patient arrives via EMS with c/o left upper leg pain that has progressed to non-weight bearing. Patient seen here yesterday for same complaint. Donell Parekh RN [facility] 2023-12-25 18:54:03 family here to pickup Patient NAD noted Patient given discharge instructions with readback, discussed prescriptions and follow up care. IV removed and intact. Steady gait with NAD noted. Donell Parekh RN [facility] 2023-12-25 18:10:43 Family contacted ride ETA less than one hour from now, patient soiled and linen and garment changed.VSS NAD noted T [facility] 2023-12-25 17:32:51 Attempted to call family pravin bhatti x1 no answer T [facility] 2023-12-25 17:19:40 Patient pending ride from family, number on facesheet not working(yousif bhatti) [facility] 2023-12-25 15:35:23 Patient with complaints of Left leg pain, MD made aware T [facility] 2023-12-25 13:34:26 Patient reports LLQ abdominal pain for weeks that comes and goes. Denies n/v/d. Daughter in law states that patient was prescribed 3 medications for UTI 5 days ago. Patient is not good historian. [facility] [employer] 2023-12-25 13:22:00 [facility] Emergency Department Note Patient Name: Leelee Bhatti Date of : 1935 88 year old female Treatment Room: TX1/TX1 Primary Care Physician: Jamison Montanez Patient Escorted by: Family [5] Mode of Arrival: Personal means [1] EMS Treatment Prior to ED Arrival: [employer] treatment: None Travel and Exposure Screening: Symptoms Does patient have any of these symptoms?: (not recorded) Exposure Screening Has patient had contact with someone with a communicable disease in the last month?: (not recorded) Diseases exposed to:: (not recorded) Is Patient ?: (not recorded) Exposure Date: (not recorded) Chief Complaint: Chief Complaint Patient presents with Abdominal Pain History of Present Illness: Very pleasant lady presents for ongoing pain in LLQ that she refers initially to her panus, pinching the fat over the left lower quadrant. See early this morning at [facility] w/ neg CT scan (papers brought to ER) and unremarkable labs. She talked to her doctor yesterday who encouraged her to come be seen at the office but she didn't. That conversation also mentions reviewing a different CT scan and labs that would have been before this morning. History provided by: Patient and relative Past Medical History/Immunizations: No past medical history on file. Tetanus received in last 5 years: Unknown Childhood immunizations: Up-to-date Allergies: Allergies Allergen Reactions Niacin Itching Past Social History: Substance & Sexual Activity No substance use or sexual activity history on file. Past Surgical History: No past surgical history on file. Review of Systems: Review of Systems Constitutional: Negative for activity change, appetite change, chills, diaphoresis, fatigue and fever. HENT: Negative for congestion, ear discharge, ear pain, facial swelling, hearing loss, sore throat, tinnitus, trouble swallowing and voice change. Eyes: Negative for photophobia, pain, discharge, redness, itching and visual disturbance. Respiratory: Negative for apnea, cough, choking, chest tightness, shortness of breath and stridor. Breasts: Negative for discharge. Cardiovascular: Negative for chest pain, palpitations and leg swelling. Gastrointestinal: Positive for abdominal pain. Negative for abdominal distention, blood in stool, diarrhea, nausea and vomiting. Genitourinary: Negative for dysuria, frequency, hematuria, flank pain, enuresis and difficulty urinating. Musculoskeletal: Negative for arthralgias, back pain, gait problem, joint swelling, myalgias, neck pain and neck stiffness. Skin: Negative for color change, pallor, rash and wound. Neurological: Negative for dizziness, syncope, facial asymmetry, speech difficulty, weakness, light-headedness and headaches. Psychiatric/Behavioral: Negative for agitation, confusion, hallucinations and self-injury. The patient is not nervous/anxious. Hematological: Negative for adenopathy, cold intolerance and heat intolerance. Does not bruise/bleed easily. Endocrine: Negative for cold intolerance, heat intolerance, polydipsia and polyphagia. Physical Exam: ED Triage Vitals [12/25/23 1335] Weight 77.1 kg (170 lb) Actual or estimated Height 1.524 m (5') BP 115/79 Pulse 78 Resp 20 Temp 36.3 ?C (97.4 ?F) Temp source Oral SpO2 98 % Measured on Physical Exam Constitutional: General: She is not in acute distress. Appearance: She is well-developed. She is not ill-appearing, toxic-appearing or diaphoretic. HENT: Head: Normocephalic and atraumatic. Right Ear: External ear normal. Left Ear: External ear normal. Eyes: General: No scleral icterus. Right eye: No discharge. Left eye: No discharge. Neck: Trachea: No tracheal deviation. Cardiovascular: Rate and Rhythm: Normal rate and regular rhythm. Heart sounds: Normal heart sounds. Pulmonary: Effort: Pulmonary effort is normal. No respiratory distress. Breath sounds: Normal breath sounds. No stridor. No wheezing or rales. Abdominal: General: There is no distension. Palpations: Abdomen is soft. Tenderness: There is no abdominal tenderness. There is no guarding. Musculoskeletal: General: No tenderness or deformity. Normal range of motion. Cervical back: Normal range of motion and neck supple. Right lower leg: No edema. Left lower leg: No edema. Skin: General: Skin is warm. Coloration: Skin is not pale. Findings: No erythema or rash. Neurological: Mental Status: She is alert and oriented to person, place, and time. Cranial Nerves: No cranial nerve deficit. Motor: No abnormal muscle tone. Coordination: Coordination normal. Psychiatric: Behavior: Behavior normal. Thought Content: Thought content normal. Judgment: Judgment normal. Radiology: XR FEMUR 2 VW LEFT Final Result XR FEMUR 2 VW LEFT HISTORY: leg pain COMPARISON: none available. IMPRESSION Findings/Impression: Osseous structures are intact. Joint spaces are preserved. There is soft tissue edema. Lab Results: Lab Results URINALYSIS - Abnormal Result Value Ref Range APPEARANCE Clear Clear COLOR Jeannine (*) Yellow PH 8.0 4.8 - 8.0 SP GRAVITY 1.010 1.003 - 1.030 GLU U QUAL Normal Normal BLOOD 1+ (*) Negative KETONES Negative Negative PROTEIN Negative Negative UROBILIN Normal Normal BILIRUBIN Negative Negative NITRITE Negative Negative LEUK AMINA Negative Negative RBC/HPF 1 0 - 3 HPF WBC/HPF <1 0 - 5 HPF BACTERIA Negative Negative SQ EPITH 1 HPF COMP. METABOLIC PANEL (25817) - Abnormal NA 134 (*) 135 - 145 mmol/L K 3.6 3.5 - 5.0 mmol/L CL 100 98 - 108 mmol/L CO2 TOTAL 25 23 - 31 mmol/L AGAP 9 2 - 16 BUN 12 7 - 23 mg/dL GLUCOSE 95 70 - 110 mg/dL CREATININE 0.80 0.50 - 1.04 mg/dL TOTAL BILI 0.9 0.1 - 1.1 mg/dL CALCIUM 10.3 8.6 - 10.6 mg/dL T PROTEIN 7.8 6.3 - 8.2 g/dL ALBUMIN 4.5 3.5 - 5.0 g/dL ALK PHOS 58 34 - 122 U/L ALTv 20 5 - 35 U/L AST(SGOT) 25 13 - 40 U/L eGFR 71.4 mL/min/1.73m2 LIPASE - Normal LIPASE 93 0 - 220 U/L LACTIC ACID WHOLE BLOOD - Normal LACTIC ACID 1.24 0.50 - 2.20 mmol/L CBC WITH DIFF WBC 7.19 4.30 - 11.10 10*3/?L RBC 4.65 3.93 - 5.25 10*6/?L HGB 14.3 11.6 - 15.0 g/dL HCT 43.7 35.7 - 45.2 % MCV 94.0 80.6 - 95.5 fL MCH 30.8 25.9 - 32.8 pg MCHC 32.7 31.6 - 35.1 g/dL RDW-SD 42.5 39.0 - 49.9 fL RDW-CV 12.3 12.0 - 15.5 % PLT 194 166 - 358 10*3/?L MPV 9.9 9.5 - 12.9 fL IPF % 3.2 1.3 - 7.7 % NRBC/100 WBC 0.0 0.0 - 10.0 /100 WBCs NRBC x10 3 <0.01 10*3/?L GRAN MAT (NEUT) % 70.5 % IMM GRAN % 0.30 % LYMPH % 18.6 % MONO % 9.3 % EOS % 0.7 % BASO % 0.6 % GRAN MAT x10 3 (ANC) 5.07 1.88 - 7.09 10*3/uL IMM GRAN x10 3 <0.03 0.00 - 0.06 10*3/uL LYMPH x10 3 1.34 1.32 - 3.29 10*3/uL MONO x10 3 0.67 0.33 - 0.92 10*3/uL EOS x10 3 0.05 0.03 - 0.39 10*3/uL BASO x10 3 0.04 0.01 - 0.07 10*3/uL EKG: If EKG completed, see Procedure Note. Orders and Treatments: Orders Placed This Encounter Procedures XR FEMUR 2 VW LEFT Urinalysis Cbc with Diff Comp. Metabolic Panel (40732) Lipase Lactic Acid Whole Blood Orders Placed This Encounter Medications traMADoL (ULTRAM) tablet 50 mg naproxen (NAPROSYN) tablet 500 mg traMADoL 50 mg tablet naproxen 250 mg tablet First Provider Eval: ED Events Date/Time Event User Comments 12/25/23 1324 Medical Screening Begins REZA RASHID MD -- 12/25/23 1324 First Provider Evaluation REZA RASHID MD -- ED COURSE Diagnosis/Impression as of 12/25/23 1741 LLQ pain Pain of left lower extremity Procedures: Procedures MDM: Medical Decision Making DDx incl nonspecific abd pain, abd strain, constipation, UTI, radiculopathy, et al PT exam non-focal and source of pain appears migratory; after reviewing CT scan regarding abd, she then points to the mid-thigh as source of pain, so Xray of femur done (negative). Pt exam continues nonfocal in ER w/out peritonitis, distress,or limited ROM of hip/knee. D/w pt rec plan of care, analgesia, f/u, and red flags for return. Amount and/or Complexity of Data Reviewed Labs: ordered. Radiology: ordered. Risk Prescription drug management. Flowsheet Documentation: Disposition/Condition: ED Disposition ED Disposition Disch - Home Condition Stable Comment -- Discharge Medications: Patient's Medications START taking these medications NAPROXEN 250 MG TABLET Take 1 tablet by mouth in the morning and 1 tablet in the evening. Take with meals. TRAMADOL 50 MG TABLET Take 1 tablet by mouth every 6 (six) hours as needed for Pain (scale 7-10) for up to 7 days. Indications: acute pain CONTINUE taking these medications which have NOT CHANGED No medications on file START taking Modified Medications as Prescribed No medications on file STOP taking these medications No medications on file Follow-up: Electronically signed by: Reza Rashid MD 12/25/234 [facility]
[2024-01-01 15:49] LABS: Absolute Basophils 0.1 K/uL (0-0.5); Absolute Eosinophils 0.1 K/uL (0-0.5); Absolute Lymphocytes (CBC) 1.8 K/uL (0.7-4.9); Absolute Monocytes 0.8 K/uL (0.1-1.3); Absolute Neutrophil 7.9 K/uL (1.8-8.0); Basophils % 0.7 % (0-1.3); Eosinophils % 1.1 % (0-4.4); Hematocrit 45.4 % (36.0-45.0); Hemoglobin 14.9 g/dL (12.0-15.0); Lymphocytes % 17.1 % (15.3-44.8); MCH 31.3 pg (27.0-35.0); MCHC 32.8 g/dL (32.0-36.0); MCV 95.3 fL (80-100); Monocytes % 7.7 % (3.3-12.3); Neutrophils % 73.4 % (41.7-73.7); Nucleated Red Blood Cells % 0.1 % (0-0); Platelets 200 thou/uL (152-406); RBC Red Blood Cell Count 4.76 M/uL (3.86-4.86); Red Cell Distribution Width 13.1 % (12.1-15.2)
[2024-01-01] MEDS ORDERED: ONDANSETRON 4 MG/2 ML VIAL ONE (16:04)
[2024-01-01] MEDS ORDERED: MORPHINE 2 MG/ML SYR ONE (16:04)
[2024-01-01] MEDS ORDERED: NA CHLORIDE 0.9% 500 ML ONE (16:05)
[2024-01-01] MEDS ORDERED: FAMOTIDINE 20 MG/2 ML VIAL IV ONE (16:05)
[2024-01-01 16:12] LABS: Albumin/Globulin Ratio 0.7 (1.1-1.8); Anion Gap 10.4 mEq/L (5.0-15.0); Bilirubin Total 0.5 mg/dL (0.2-1.0); Globulin 4.5 g/dL (2.3-3.5); Potassium 3.4 mEq/L (3.5-5.1); Protein, Total 7.5 g/dL (6.4-8.2)
--- NOTE | 2024-01-01 18:29 | RAD REPORT ---
EXAMINATION: CT ABDOMEN AND PELVIS WITH CONTRAST CLINICAL INDICATION: Female, 88 years old. [facility] MAIN lower abdomen pain TECHNIQUE: CT abdomen and pelvis was performed, after the administration of IV contrast, as per [facility] protocol. Axial, sagittal and coronal reconstructions were obtained. One or more of the following dose reduction techniques were used: Automated exposure control, adjustment of the mA and k V according to patient size, and iterative reconstruction. Unless otherwise specified, incidental findings do not require dedicated imaging follow-up. COMPARISON: 12/24/2023 CT abdomen and pelvis FINDINGS: LOWER CHEST: The visualized lung bases are clear. Stable small posterior right diaphragmatic hernia c ontaining fat. LIVER: Normal in size and contour. No focal lesion. BILIARY SYSTEM: No suspicious abnormalities. SPLEEN: Normal size. No focal lesion. PANCREAS: No mass, ductal dilation, or blaise-pancreatic fluid. ADRENALS: Stable left adrenal ovoid 1.8 cm nodule, probably within limits of acceptable differences i n positioning and measurement technique. KIDNEYS: Normal size and contour. No hydronephrosis. URINARY BLADDER: Decompressed limiting evaluation. GASTROINTESTINAL TRACT: Mild wall thickening and adjacent fat stranding along the distal transverse c olon throughout the sigmoid colon, with somewhat ahaustral pattern. Stable small lipoma projecting within the pyloric lumen. No evidence of free air, significant intra-abdominal free fluid, bowel obst ruction or abscess. APPENDIX: Normal appendix. LYMPH NODES: No lymphadenopathy. MUSCULOSKELETAL: No acute or suspicious osseous abnormality. ADDITIONAL FINDINGS: None. IMPRESSION: Mild wall thickening, adjacent fat stranding, and subjective loss of haustral pattern involving the d istal transverse colon through the sigmoid. Findings suggest infectious or inflammatory colitis. Other stable findings as above.
--- NOTE | 2024-01-01 18:40 | ER ---
Nurse's Notes [facility] Name: Leelee Bhatti Age: 88 yrs Sex: Female : 1935 Arrival Date: 01/01/2024 Time: 13:46 Bed DX5 Private MD: Diagnosis: Indeterminate colitis Presentation: 12/31 13:56 Chief complaint: EMS states: complaining of constipation. Been to this ER and [place] tm6 twice this past week for same issue. Patient is taking pain medication for chronic left thigh pain. Patient reporting having bowel movements and is taking laxatives. Coronavirus screen: Client denies travel out of the [place] in the last 14 days. Ebola Screen: Patient negative for fever greater than or equal to 101.5 degrees Fahrenheit, and additional compatible Ebola Virus Disease symptoms Patient denies exposure to infectious person. Patient denies travel to an Ebola-affected area in the 21 days before illness onset. No symptoms or risks identified at this time. Initial Sepsis Screen: Does the patient meet any 2 criteria? HR > 90 bpm. Does the patient have a suspected source of infection? No. Patient's initial sepsis screen is negative. Risk Assessment: Do you want to hurt yourself or someone else? Patient reports no desire to harm self or others. Onset of symptoms is unknown. 13:56 Method Of Arrival: EMS: [facility] tm6 13:56 Acuity: GALEN 3 tm6 14:00 Chief complaint: Patient states: patient states back is burning and stomach is tm6 bothering too. Leg is hurting too. Triage Assessment: 13:58 General: Appears in no apparent distress. Behavior is cooperative. Pain: Complains of tm6 pain in left low back. EENT: No signs and/or symptoms were reported regarding the EENT system. Neuro: Level of Consciousness is awake, alert, obeys commands, Oriented to person, place, time, situation. Cardiovascular: Patient's skin is warm and dry. Respiratory: Airway is patent Respiratory effort is even, unlabored, Respiratory pattern is regular, symmetrical. GI: Abdomen is flat, non-distended, Reports constipation, but reports BM yesterday. : No signs and/or symptoms were reported regarding the genitourinary system. Derm: No signs and/or symptoms reported regarding the dermatologic system. Musculoskeletal: No signs and/or symptoms reported regarding the musculoskeletal system. Historical: - Allergies: 13:58 Niacin; tm6 - PMHx: 13:58 Anxiety; Hypercholesterolemia; Hypertensive disorder; Major Depressive Disorder; tm6 - PSHx: 13:58 Ankle (L); tm6 - Immunization history:: Client reports receiving the 2nd dose of the Covid vaccine. - Infectious Disease History:: Denies. - Social history:: Smoking status: Patient denies any tobacco usage or history of. Screenin:17 [facility] ED Fall Risk Assessment (Adult) History of falling in the last 3 months, iw including since admission No falls in past 3 months (0 pts). Tuberculosis screening: No symptoms or risk factors identified. Assessment: 16:00 Reassessment: pt placed in recliner chair, pt states she would like to go home but she iw does not have a ride, wants the ambulance to take her home , pt advised that the ambulance will not transport pts home unless they meet certain criteria. 16:10 Reassessment: pt agrees to be medicated while she is waiting. iw 16:30 Reassessment: pt requesting something to eat, advised that we need to wait on Ct iw results. 17:30 Reassessment:. iw 18:10 Reassessment: Robbie Page at bedside to speak with pt. iw 19:17 Reassessment: Patient appears in no apparent distress at this time. Patient and/or iw family updated on plan of care and expected duration. Pain level reassessed. Patient is alert, oriented x 3, equal unlabored respirations, skin warm/dry/pink. Vital Signs: 13:56 BP 122 / 81; Pulse 106; Resp 19; Temp 97.8(O); Pulse Ox 97% on R/A; MAP 92 mmHg; Weight tm6 81.65 kg; Height 5 ft. 1 in. ; Pain 5/10; 19:17 BP 124 / 87; Pulse 98; Resp 16; Temp 98.1; Pulse Ox 97% on R/A; iw 13:56 Body Mass Index 34.01 (81.65 kg, 154.94 cm) tm6 13:56 Pain Scale: Adult tm6 ED Course: 13:51 Patient arrived in ED. mg5 13:56 Maintain EMS IV. Dressing intact. Good blood return noted. Site clean \T\ dry. Gauge \T\ tm 6 site: 20g L hand. 13:58 Triage completed. tm6 13:58 Arm band placed on right wrist. tm6 14:22 Robbie Cleary PA is PHCP. cp 14:22 Robbie Price MD is Attending Physician. cp 15:32 Initial lab(s) drawn, by me, sent to lab. tm3 16:00 Sanjana Saldana, RN is Primary Nurse. iw 17:40 CT Abd/Pelvis - IV Contrast Only In Process Unspecified. EDMS 18:39 Macho To MD is Referral Physician. cp 19:17 No provider procedures requiring assistance completed. IV discontinued, intact, iw bleeding controlled, No redness/swelling at site. Pressure dressing applied. Administered Medications: 16:18 Drug: Famotidine IVP 20 mg IVP once; dilute with 10 mL 0.9% NaCl; give over 2 minutes iw Route: IVP; Site: left wrist; 16:18 Drug: Ondansetron IVP 4 mg IVP once; over 2 minutes Route: IVP; Site: left wrist; iw 16:18 Drug: NS 0.9% IV 500 ml IV at 500 ml/hr continuous Route: IV; Rate: 500 ml/hr; Site: iw left wrist; 18:20 Follow up: IV Status: Completed infusion iw 16:19 Drug: morphine IVP or IV 2 mg IVP once over 4 mins Route: IVP; Infused Over: 4 mins; iw Site: left wrist; 19:17 Drug: Ciprofloxacin PO 500 mg PO once Route: PO; iw 19:17 Drug: metroNIDAZOLE PO 500 mg PO once Route: PO; iw 19:17 Drug: Potassium PO Effervescent Tablet 25 mEq PO once; dissolve in 4 ounces of water or iw juice Route: PO; Outcome: 18:40 Discharge ordered by MD. cp 19:18 Discharged to home via wheelchair, iw 19:18 Condition: good 19:18 Discharge instructions given to patient, Instructed on discharge instructions, follow up and referral plans. medication usage, Demonstrated understanding of instructions, follow-up care, medications, Prescriptions given X 4, 19:18 Patient left the ED. iw Signatures: Dispatcher [employer] EDNE Quentin Gonzales tm3 Sanjana Saldana, BETSY RN iw Robbie Cleary PA PA cp Mayra Lebron mg5 Asia, Tawney, RN RN tm6 Corrections: (The following items were deleted from the chart) 17:31 16:00 Reassessment: pt placed in recliner chair, pt states she would like to go home iw but she does not have a ride, wants the ambulance to take her home , pt advised that the ambulance will not transport pts home unless they meet certain criteria iw
--- NOTE | 2024-01-01 18:40 | EDPHYS ---
Physician Documentation [facility] Name: Leelee Bhatti Age: 88 yrs Sex: Female : 1935 Arrival Date: 01/01/2024 Time: 13:46 Bed DX5 Private MD: ED Physician Robbie Price HPI: 12/31 14:45 This 88 yrs old Female presents to ER via EMS with complaints of Constipation, cp Back Pain, Leg Pain. 14:45 The patient presents with abdominal pain in the lower abdomen. cp 14:45 Associated signs and symptoms: Pertinent positives: diarrhea, nausea, lower back pain, cp Pertinent negatives: fever, vomiting. 14:45 The symptoms are described as crampy. Severity of pain: in the emergency department the cp pain is unchanged despite home interventions. Patient reports she was recently diagnosed with uti and prescribed antibiotics that she did not fill RX. Historical: - Allergies: 13:58 Niacin; tm6 - PMHx: 13:58 Anxiety; Hypercholesterolemia; Hypertensive disorder; Major Depressive Disorder; tm6 - PSHx: 13:58 Ankle (L); tm6 - Immunization history:: Client reports receiving the 2nd dose of the Covid vaccine. - Infectious Disease History:: Denies. - Social history:: Smoking status: Patient denies any tobacco usage or history of. ROS: 14:50 Constitutional: Negative for body aches, chills, fever, poor PO intake, cp 14:50 Eyes: Negative for injury, pain, redness, and discharge, cp 14:50 ENT: Negative for drainage from ear(s), ear pain, sore throat, difficulty swallowing, difficulty handling secretions, 14:50 Cardiovascular: Negative for chest pain, 14:50 Respiratory: Negative for cough, shortness of breath, wheezing, 14:50 Abdomen/GI: Positive for abdominal pain, nausea, diarrhea, Negative for constipation, black/tarry stool, rectal bleeding, 14:50 Neuro: Negative for altered mental status, dizziness, headache, weakness, 14:50 Back: Positive for low back pain, cp 14:50 All other systems are negative, cp Exam: 14:55 Constitutional: The patient appears in no acute distress, alert, awake, cp non-diaphoretic, non-toxic, well developed, well nourished, 14:55 Head/Face: Normocephalic, atraumatic. cp 14:55 Eyes: Periorbital structures: appear normal, Conjunctiva: normal, no exudate, no injection, Sclera: no appreciated abnormality, Lids and lashes: appear normal, bilaterally, 14:55 ENT: External ear(s): are unremarkable, Nose: is normal, Mouth: Lips: moist, Oral mucosa: pink and intact, moist, Posterior pharynx: is normal, airway is patent, no erythema, no exudate, 14:55 Chest/axilla: Inspection: normal, 14:55 Cardiovascular: Rate: tachycardic, Rhythm: regular, 14:55 Respiratory: the patient does not display signs of respiratory distress, Respirations: normal, no use of accessory muscles, no retractions, labored breathing, is not present, Breath sounds: are clear throughout, no decreased breath sounds, no stridor, no wheezing, 14:55 Abdomen/GI: Inspection: abdomen appears normal, Bowel sounds: active, all quadrants, Palpation: soft, in all quadrants, moderate abdominal tenderness, in the right lower quadrant and left lower quadrant, rebound tenderness, is not appreciated, involuntary guarding, is not appreciated, 14:55 Back: CVA tenderness, is absent, 14:55 Neuro: Orientation: to person, place \T\ time. Mentation: is normal, Motor: moves all fours, no focal deficits, Vital Signs: 13:56 BP 122 / 81; Pulse 106; Resp 19; Temp 97.8(O); Pulse Ox 97% on R/A; MAP 92 mmHg; Weight tm6 81.65 kg; Height 5 ft. 1 in. ; Pain 5/10; 19:17 BP 124 / 87; Pulse 98; Resp 16; Temp 98.1; Pulse Ox 97% on R/A; iw 13:56 Body Mass Index 34.01 (81.65 kg, 154.94 cm) tm6 13:56 Pain Scale: Adult tm6 MDM: 14:22 Patient medically screened. cp 18:40 Data reviewed: vital signs, nurses notes, lab test result(s), radiologic studies, CT cp scan. 18:40 Differential diagnosis: diverticulitis, gastritis, pancreatitis, Pyelonephritis, cp Ureterolithiasis, urinary tract infection. I considered the following discharge prescriptions or medication management in the emergency department Medications were administered in the Emergency Department. See MAR. Counseling: I had a detailed discussion with the patient and/or guardian regarding the historical points, exam findings, and any diagnostic results supporting the discharge/admit diagnosis, lab results, radiology results, the need for outpatient follow up, a groover and turner, to return to the emergency department if symptoms worsen or persist or if there are any questions or concerns that arise at home. Response to treatment: the patient's symptoms have mildly improved after treatment, and as a result, I will discharge patient. 12/31 14:42 Order name: CBC with Diff; Complete Time: 18:09 cp 12/31 18:09 Interpretation: Normal except: HCT 45.4. cp 12/31 14:42 Order name: CMP; Complete Time: 18:09 cp 12/31 18:32 Interpretation: Normal except: NA 131; K 3.4; CO2 18; GFR 63; CA 10.6; ALB 3.0; GLOB cp 4.5; A/G 0.7. 12/31 14:42 Order name: Lipase; Complete Time: 18:09 cp 12/31 15:35 Order name: CT Abd/Pelvis - IV Contrast Only; Complete Time: 18:31 cp 12/31 14:42 Order name: IV Saline Lock; Complete Time: 16:00 cp 12/31 14:42 Order name: Labs collected and sent; Complete Time: 16:00 cp 12/31 18:37 Order name: PO challenge; Complete Time: 18:57 cp Administered Medications: 16:18 Drug: Famotidine IVP 20 mg IVP once; dilute with 10 mL 0.9% NaCl; give over 2 minutes iw Route: IVP; Site: left wrist; 16:18 Drug: Ondansetron IVP 4 mg IVP once; over 2 minutes Route: IVP; Site: left wrist; iw 16:18 Drug: NS 0.9% IV 500 ml IV at 500 ml/hr continuous Route: IV; Rate: 500 ml/hr; Site: iw left wrist; 18:20 Follow up: IV Status: Completed infusion iw 16:19 Drug: morphine IVP or IV 2 mg IVP once over 4 mins Route: IVP; Infused Over: 4 mins; iw Site: left wrist; 19:17 Drug: Ciprofloxacin PO 500 mg PO once Route: PO; iw 19:17 Drug: metroNIDAZOLE PO 500 mg PO once Route: PO; iw 19:17 Drug: Potassium PO Effervescent Tablet 25 mEq PO once; dissolve in 4 ounces of water or iw juice Route: PO; Disposition Summary: 01/01/24 18:40 Discharge Ordered Notes: Location: Home cp Problem: new cp Symptoms: have improved cp Condition: Stable cp Diagnosis - Indeterminate colitis cp Followup: cp - With: Macho To MD - When: 2 - 3 days - Reason: Recheck today's complaints Discharge Instructions: - Discharge Summary Sheet cp - Colitis cp Forms: - Medication Reconciliation Form cp - Antibiotic Education cp - Prescription Opioid Use cp - Patient Portal Instructions cp - Leadership Thank You Letter cp Prescriptions: - Zofran 4 mg Oral Tablet - take 1 tablet ORAL route every 12 hours As needed; 20 tablet; Refills: 0, cp Product Selection Permitted - Cipro 500 mg Oral Tablet - take 1 tablet ORAL route every 12 hours for 7 days; 14 tablet; Refills: 0, cp Product Selection Permitted - Metronidazole 500 mg Oral Tablet - take 1 tablet ORAL route every 8 hours; 30 tablet; Refills: 0, Product cp Selection Permitted - dicyclomine 20 mg Oral tablet - take 1 tablet ORAL route 4 times per day; 30 tablet; Refills: 0, Product cp Selection Permitted Signatures: Dispatcher [employer] EDSanjana Gray RN RN iw Robbie Cleary PA PA cp Masterson, Tawney, RN RN tm6 Corrections: (The following items were deleted from the chart) 14:43 14:43 CBC+H.LAB.BRZ ordered. EDMS EDMS 14:43 14:43 COMPREHENSIVE METABOLIC PANEL+C.LAB.BRZ ordered. EDMS EDMS 14:43 14:43 LIPASE+C.LAB.BRZ ordered. EDMS EDMS 14:43 14:43 Urinalysis+U.LAB.BRZ ordered. EDMS EDMS 01/01 13:23 10 14:50 All other systems are negative, cp cp
[2024-01-01] MEDS ORDERED: metroNIDAZOLE 500 MG TABLET ONE (19:04)
[2024-01-01] MEDS ORDERED: CIPROFLOXACIN HCL 500 MG TAB ONE (19:04)
[2024-01-01] MEDS ORDERED: POTASSIUM 25 MEQ EFFERV TAB ONE (19:05)
[2024-01-01 21:37] VITALS: O2SAT 97
[2024-01-01 21:39] VITALS: BP 124/87; TEMP 98.1
== END 2024-01-01 19:18 | disposition home or self-care (01) ==
LOC: ER 13:46
DX: K52.3 Indeterminate colitis (principal); M54.50 Low back pain, unspecified
CPT/HCPCS: 96361; 85025; 36415; 83690; 80053; 74177; 96375; 96374; 99284; Q9967; J2270; J2405; J7040

== ENCOUNTER 2024-01-12 11:53 | Emergency (ER) | payer OTHER ==
--- OUTSIDE RECORDS SUMMARY | 2024-01-12 11:56 | XMS REPORT | Continuity of Care Document ---
Author Name Unknown Address [address] [facility] [address] [place] [address] [facility] thconnect Address [address] [facility]. 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 Role Phone Jamison Montanez MD Primary Care Physician Sahil Piedra Attending Clinician Unavailable Addie Hernandez MD Attending Clinician [phone] Lexi Vela Attending Clinician REZA RASHID Attending Clinician Unavail able REZA RASHID Attending Clinician Unavail able Reza Rashid MD Attending Clinician [email or web address]_S Attending Clinician Unavaila ble REZA RASHID Admitting Clinician Unavail able [email or web address]_S Admitting Clinician Unavaila ble Payers Payer Name Policy Type Policy Number Effective Date Expirati on Date Source Problems Condition Name Condition Details Condition Category Status Onset Date Resolution Date Last Treatment Date Treating Clinician Comments Source Frequency of micturitio n Frequency of micturitio n Disease Active 09-10 00:00: 00 [facility] Low back pain Low back pain Disease Active 09-10 00:00: 00 [facility] Essential hypertensi on Essential hypertensi on Disease Active 08-25 00:00: 00 [facility] Gastro-eso phageal reflux disease without esophagiti s Gastro-eso phageal reflux disease without esophagiti s Disease Active 08-25 00:00: 00 [facility] Hyperlipid emia Hyperlipid emia Disease Active 08-25 00:00: 00 [facility] Allergies, Adverse Reactions, Alerts Allergy Name Allergy Type Status Severity Reaction(s) Onset Date Inactive Date Treating Clinician Comments Source NIACIN DRUG INGREDI Active ITCHING 12-24 00:00: 00 [facility] Niacin Propensi ty to adverse reaction s Active Itching 12-24 00:00: 00 [facility] Social History Social Habit Start Date Stop Date Quantity Comments Source Sexual orientation U [facility] Sex assigned at 1935 00:00:00 1935 00:00:00 [facility] Smoking Status Start Date Stop Date Source Tobacco smoking consumption unknown [facility] Medications Ordered Medication Name Filled Medication Name Start Date Stop Date Current Medication? Ordering Clinician Indication Dosage Frequency Signature (SIG) Comments Components Source NaCl 0.9% (NS) IV infusion 1,000 mL 2023-04 005 04:15: 00 01-04 05:26 :00 No 1000mL at 999 mL/hr, Intravenou s, ONCE, 1 dose, On Sun01/04/24 at 2315, Routine, HYPERCALCE ANTHONY [facility] Potassium Bicarb-Citr ic Acid (EFFER-K) effervescen t tablet 40 mEq 2023-04 0-05 04:15: 00 01-04 03:53 :00 No 40meq 40 mEq, Oral, ONCE, 1 dose, On Sun01/04/24 at 2315, Routine [facility] iopamidol (ISOVUE 370-500 mL) injection 85 mL 2023-04 0-05 04:15: 00 01-04 04:15 :00 No [id number] 85mL 85 mL, Intravenou s, ONCE, 1 dose, On Sun01/04/24 at 2315, Routine [facility] lactulose (CEPHULAC) 10 gram/15 mL oral solution 30 mL 2023-04 0 01:45: 00 01-04 01:53 :00 No 30mL 30 mL, Oral, ONCE, 1 dose, On Sun01/04/24 at 2045, RHONA [facility] glycerin/mi neral oil, AGLO ENEMA, Enem 2023-04 004 00:00: 00 Yes [id number] 225mL Insert 225 mL into rectum as needed for Constipati on. [facility] lactulose 10 gram/15 mL oral solution 2023-04 0 00:00: 00 Yes [id number] 30mL Take 30 mL by mouth 3 (three) times daily as needed for Constipati on or For bowel movement. [facility] naproxen (NAPROSYN) tablet 500 mg 12-25 15:00: 00 12-25 14:27 :00 No 500mg 500 mg, Oral, ONCE, 1 dose, On Sun12/26/23 at 1000, RHONA [facility] traMADoL (ULTRAM) tablet 50 mg 12-25 15:00: 00 12-25 14:27 :00 No 50mg 50 mg, Oral, ONCE, 1 dose, On Sun12/26/23 at 1000, RHONA [facility] naproxen (NAPROSYN) tablet 500 mg 12-25 13:00: 00 Yes 500mg 500 mg, Oral, BID MEALS, First dose on Sun12/26/23 at 0800, Until Discontinu ed, Routine [facility] traMADoL (ULTRAM) tablet 50 mg 12-24 21:45: 00 12-24 20:54 :00 No 50mg 50 mg, Oral, ONCE NOW, 1 dose, On Sun12/25/23 at 1645, Routine [facility] naproxen 250 mg tablet 12-24 00:00: 00 Yes [id number] 250mg Take 1 tablet by mouth in the morning and 1 tablet in the evening. Take with meals. [facility] traMADoL 50 mg tablet 12-24 00:00: 00 01-01 04:59 :00 Yes [id number] 50mg Take 1 tablet by mouth every 6 (six) hours as needed for Pain (scale 7-10) for up to 7 days. Indication s: acute pain [facility] Vital Signs Vital Name Observation Time Observation Value Comments S ource Systolic blood pressure 2024-01-05 04:00:00 108 mm[Hg] [facility] Diastolic blood pressure 2024-01-05 04:00:00 86 mm[Hg] [facility] Heart rate 2024-01-05 04:00:00 74 /[facility] Respiratory rate 2024-01-05 04:00:00 16 /min [facility] Oxygen saturation in Arterial blood by Pulse oximetry 2024-01-05 04:00:00 98 /min [facility] Body temperature 2024-01-05 00:18:00 36.94 Mary Jo [facility] Body height 2024-01-05 00:18:00 152.4 cm [facility] Body weight 2024-01-05 00:18:00 82 kg [facility] BMI 2024-01-05 00:18:00 35.31 kg/m2 [facility] Body height 2023-12-26 16:21:56 152.4 cm [facility] Systolic blood pressure 2023-12-26 14:00:00 152 mm[Hg] [facility] Diastolic blood pressure 2023-12-26 14:00:00 90 mm[Hg] [facility] Heart rate 2023-12-26 14:00:00 71 /min [facility] Respiratory rate 2023-12-26 14:00:00 16 /min [facility] Oxygen saturation in Arterial blood by Pulse oximetry 2023-12-26 14:00:00 95 /min [facility] Body temperature 2023-12-26 13:38:00 36.72 Mary Jo [facility] Systolic blood pressure 2023-12-25 23:15:00 113 mm[Hg] [facility] Diastolic blood pressure 2023-12-25 23:15:00 85 mm[Hg] [facility] Heart rate 2023-12-25 23:15:00 81 /min [facility] Respiratory rate 2023-12-25 23:15:00 16 /min [facility] Oxygen saturation in Arterial blood by Pulse oximetry 2023-12-25 23:15:00 96 /min [facility] Body temperature 2023-12-25 18:35:00 36.33 Mary Jo [facility] Body height 2023-12-25 18:35:00 152.4 cm [facility] Body weight 2023-12-25 18:35:00 77.111 kg [facility] BMI 2023-12-25 18:35:00 33.20 kg/m2 [facility] Procedures Procedure Date / Time Performed Performing Clinicia n Source CT ABDOMEN PELVIS W CONTRAST 2024-01-05 03:26:49 Addie Hernandez [facility] BASIC METABOLIC PANEL (NA, K, CL, CO2, GLUCOSE, BUN, CREATININE, CA) 2024-01-05 01:54:00 Addie Hernandez [facility] CBC WITH DIFF 2024-01-05 01:54:00 Addie Hernandez [facility] XR FEMUR 2 VW LEFT 2023-12-25 21:24:04 Reza Rashid [facility] URINALYSIS 2023-12-25 19:31:00 Reza Rashid [facility] LACTIC ACID WHOLE BLOOD 2023-12-25 19:31:00 Reza Rashid [facility] LIPASE 2023-12-25 19:31:00 Reza Rashid [facility] COMP. METABOLIC PANEL (25900) 2023-12-25 19:31:00 Reza Rashid [facility] CBC WITH DIFF 2023-12-25 19:31:00 Reza Rashid [facility] Encounters Start Date/Time End Date/Time Encounter Type Admission Type Attending Clinicians Care Facility Care Department Encounter ID Source 2022-07-14 14:39:02 [facility] [id number] 2022-07-12 08:06:00 [facility] [id number] [facility] 2022-07-10 09:04:02 [facility] [id number] [facility] 2024-01-04 19:29:00 2024-01-05 00:29:00 Emergency Addie Hernandez [facility] [id number] [facility] 2023-12-26 08:36:00 2023-12-26 12:12:00 Emergency Lexi Madden [facility] [id number] [facility] 2023-12-25 13:37:00 2023-12-25 18:55:00 Emergency X REZA RASHID [facility]PH [facility] ERT [id number] [facility] 2023-12-25 13:37:00 2023-12-25 18:55:00 Emergency Reza Rashid [facility] [id number] [facility] 2023-01-30 00:00:00 2023-01-30 00:00:00 Outpatient GC_GCBZW_Ka Misty [facility] [id number] [facility] Medical Results Test Description Test Time Test Comments Results Result Comments Source CT ABDOMEN PELVIS W CONTRAST 03:54:27 Ordering Physician: ADDIE HERNANDEZ Clinical indication: Left lower quadrant abdominal pain. No bowel movementin 2 weeks. Comparison: None. Technique: CT abdomen and pelvis with intravenous contrast. Thisexamination was performed according to ALARA principles. Technical quality: Adequate Findings: There is a small right posterior diaphragmatic (Bochdalek) hernia,containing only fat. The liver, gallbladder, spleen, pancreas, and rightadrenal gland are unremarkable. There is an approximately 1.6 cm leftadrenal nodule, nonspecific in appearance. There is a small left renalcortical cyst. There is a small hiatal hernia. No acute gastricabnormalities are evident. A lobular fat density structure, measuring up to3 cm in diameter, is seen within the duodenal bulb. There isatherosclerotic calcification of the abdominal aorta and its branches, withno evidence of aneurysm. The urinary bladder is decompressed and grossly unremarkable. No uterine oradnexal abnormalities are evident. Colonic contents are predominantly fluidin nature, with minimal retained solid fecal material evident. No muralthickening of the colon is evident. An appendix is not visualized. Nopericecal inflammatory changes are evident. Mildly prominent small bowelfluid is also noted. There are no findings to suggest obstruction. There isno free intraperitoneal fluid or free intraperitoneal air. There is a solid noncalcified nodule measuring 6 mm within the right middlelobe (8:2). Bronchiectasis is seen within both lower lobes and within theright middle lobe and lingula. There are degenerative changes of the lumbarspine and mild right convex curvature of the spine. There is mildcompression deformity of L3. Discrete fracture lines are not apparent. Noassociated soft tissue abnormalities are apparent. [facility] with [id number] 02:35:01* Test Item Value Reference Range Interpretation Comme nts WBC (test code = 6690-2) 8.09 4.30-11.10 RBC (test code = 789-8) 4.45 3.93-5.25 HGB (test code = 718-7) 13.9 g/dL 11.6-15.0 HCT (test code = 4544-3) 41.6 % 35.7-45.2 MCV (test code = 787-2) 93.5 fL 80.6-95.5 MCH (test code = 785-6) 31.2 pg 25.9-32.8 MCHC (test code = 786-4) 33.4 g/dL 31.6-35.1 RDW-SD (test code = 15037-9) 43.8 fL 39.0-49.9 RDW-CV (test code = 788-0) 12.7 % 12.0-15.5 PLT (test code = 777-3) 224 166-358 MPV (test code = 81422-2) 9.7 fL 9.5-12.9 NRBC/100 WBC (test code = 8410951392) 0.0 0.0-10.0 NRBC x10^3 (test code = 4813229737) See_Comment [Automated me ssage] The system which generated this result transmitted reference range: 10*3/?L. The reference range was not used to interpret this result as normal/abnormal. GRAN MAT (NEUT) % (test code = 770-8) 70.0 % IMM GRAN % (test code = 8616043381) 0.70 % LYMPH % (test code = 736-9) 20.3 % MONO % (test code = 5905-5) 7.3 % EOS % (test code = 713-8) 1.2 % BASO % (test code = 706-2) 0.5 % GRAN MAT x10^3(ANC) (test code = 1349851410) 5.66 10*3/uL 1.88-7.09 IMM GRAN x10^3 (test code = 0838143421) 0.06 10*3/uL 0.00-0.06 LYMPH x10^3 (test code = 731-0) 1.64 10*3/uL 1.32-3.29 MONO x10^3 (test code = 742-7) 0.59 10*3/uL 0.33-0.92 EOS x10^3 (test code = 711-2) 0.10 10*3/uL 0.03-0.39 BASO x10^3 (test code = 704-7) 0.04 10*3/uL 0.01-0.07 [facility] [id number] 21:32:52XR FEMUR 2 VW LEFT HISTORY: ?leg pain COMPARISON: ?none available.[facility] Whole [id number] 19:36:32* Test Item Value Reference Range Interpretation Comme nts LACTIC ACID (test code = 9827470823) 1.24 mmol/L 0.50-2.20 Lab Interpretation (test cod e = 36290-3) Normal [facility] Notes Date/Time Note Provider Source 2024-01-05 00:27:26 Pt given printed and verbal discharge instructions regarding constipation, hypokalemia, hypercalcemia , encouraged hydration, Prescriptions provided Pt verbalized understanding of instructions, pt awake alert oriented, resp reg unlabored, skin w/d, color appropriate for race, moves all ext well,pt encouraged to follow up with pcp Advised to seek medical attention for new/prolonged/worsening of symptoms No adverse reaction to meds given in ER noted upon discharge PIV d'cd, dressing to site, catheter in tact. Awake, alert oriented, resp reg unlabored, skin w/d, pt in wheel chair, in no apparent distress, T [facility] 2024-01-05 00:15:00 Pt states she has had multiple BMs while she has been here. T [facility] 2024-01-04 19:21:58 Pt brought by EMS. Pt states she has no had a BM in a few weeks. Pt states she feels ABD pressure. 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 Pt has not had a BM in about two weeks. Pt has taken Milk of Magnesia without having a BM. Has nausea.. No vomiting. Pt has LLQ pain rated at 5/10. Pain has been ongoing for the past two weeks. Denies any urinary symptoms. Pt is currently taking Zofran,. 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 used: No Constipation Severity: Moderate Time since last bowel movement: 2 weeks Timing: Constant Progression: Worsening Chronicity: New Context: not dehydration and not dietary changes Stool description: None produced Relieved by: None tried Worsened by: Nothing Ineffective treatments: None tried Associated symptoms: abdominal pain and flatus Associated symptoms: no back pain, no diarrhea, no dysuria, no fever, no hematochezia, no nausea, no urinary retention and no vomiting Risk factors: recent antibiotic use Risk factors: no change in medication, no hx of abdominal surgery, no obesity, no recent illness, no recent surgery and no recent travel Past Medical History/Immunizations: HTN GERD HLD Tetanus received in last 5 years: Unknown Allergies: Allergies Allergen Reactions Niacin Itching Past Social History: Substance & Sexual Activity No substance use or sexual activity history on file. Past Surgical History: Breast Cyst removal C/S Review of Systems: Review of Systems Constitutional: Negative. Negative for fever. HENT: Negative. Eyes: Negative. Respiratory: Negative. Breasts: Negative. Cardiovascular: Negative. Gastrointestinal: Positive for abdominal pain, constipation and flatus. Negative for diarrhea, hematochezia, nausea and vomiting. Genitourinary: Negative. Negative for dysuria. Musculoskeletal: Negative. Negative for back pain. Skin: Negative. Neurological: Negative. Psychiatric/Behavioral: Negative. All other systems reviewed and are negative. Endocrine: Endocrine negative Physical Exam: ED Triage Vitals [01/04/241917] Weight 82 kg (180 lb 12.4 oz) Actual or estimated Estimated by patient/family report Height 1.524 m (5') BP 123/81 Pulse 81 Resp 16 Temp 36.9 ?C (98.5 ?F) Temp source Oral SpO2 96 % Measured on Room air Physical Exam Vitals reviewed. Constitutional: General: She is not in acute distress. Appearance: Normal appearance. She is well-developed and normal weight. She is not ill-appearing or toxic-appearing. HENT: Head: Normocephalic and atraumatic. Nose: Nose normal. No congestion or rhinorrhea. Mouth/Throat: Mouth: Mucous membranes are moist. Pharynx: Oropharynx is clear. No oropharyngeal exudate or posterior oropharyngeal erythema. Eyes: General: No scleral icterus. Right eye: No discharge. Left eye: No discharge. Extraocular Movements: Extraocular movements intact. Conjunctiva/sclera: Conjunctivae normal. Pupils: Pupils are equal, round, and reactive to light. Neck: Thyroid: No thyromegaly. Cardiovascular: Rate and Rhythm: Normal rate and regular rhythm. Pulses: Normal pulses. Heart sounds: Normal heart sounds. No murmur heard. Pulmonary: Effort: Pulmonary effort is normal. No respiratory distress. Breath sounds: Normal breath sounds. No stridor. No wheezing, rhonchi or rales. Chest: Chest wall: No tenderness. Abdominal: General: Bowel sounds are normal. There is no distension. Palpations: Abdomen is soft. There is no mass. Tenderness: There is no abdominal tenderness. There is no right CVA tenderness, left CVA tenderness, guarding or rebound. Hernia: No hernia is present. Musculoskeletal: General: No swelling, tenderness, deformity or signs of injury. Normal range of motion. Cervical back: Normal range of motion and neck supple. No rigidity or tenderness. Lymphadenopathy: Cervical: No cervical adenopathy. Skin: General: Skin is warm and dry. Capillary Refill: Capillary refill takes less than 2 seconds. Coloration: Skin is not jaundiced or pale. Findings: No bruising, erythema, lesion or rash. Neurological: General: No focal deficit present. Mental Status: She is alert and oriented to person, place, and time. Cranial Nerves: No cranial nerve deficit. Sensory: No sensory deficit. Motor: No weakness or abnormal muscle tone. Coordination: Coordination normal. Gait: Gait normal. Deep Tendon Reflexes: Reflexes normal. Psychiatric: Behavior: Behavior normal. Thought Content: Thought content normal. Judgment: Judgment normal. Radiology: CT ABDOMEN PELVIS W CONTRAST Final Result Ordering Physician: ADDIE HERNANDEZ Clinical indication: Left lower quadrant abdominal pain. No bowel movement in 2 weeks. Comparison: None. Technique: CT abdomen and pelvis with intravenous contrast. This examination was performed according to ALARA principles. Technical quality: Adequate Findings: There is a small right posterior diaphragmatic (Bochdalek) hernia, containing only fat. The liver, gallbladder, spleen, pancreas, and right adrenal gland are unremarkable. There is an approximately 1.6 cm left adrenal nodule, nonspecific in appearance. There is a small left renal cortical cyst. There is a small hiatal hernia. No acute gastric abnormalities are evident. A lobular fat density structure, measuring up to 3 cm in diameter, is seen within the duodenal bulb. There is atherosclerotic calcification of the abdominal aorta and its branches, with no evidence of aneurysm. The urinary bladder is decompressed and grossly unremarkable. No uterine or adnexal abnormalities are evident. Colonic contents are predominantly fluid in nature, with minimal retained solid fecal material evident. No mural thickening of the colon is evident. An appendix is not visualized. No pericecal inflammatory changes are evident. Mildly prominent small bowel fluid is also noted. There are no findings to suggest obstruction. There is no free intraperitoneal fluid or free intraperitoneal air. There is a solid noncalcified nodule measuring 6 mm within the right middle lobe (8:2). Bronchiectasis is seen within both lower lobes and within the right middle lobe and lingula. There are degenerative changes of the lumbar spine and mild right convex curvature of the spine. There is mild compression deformity of L3. Discrete fracture lines are not apparent. No associated soft tissue abnormalities are apparent. IMPRESSION Impression: 1. Prominent colonic and small bowel fluid is nonspecific, but may be seen in the setting of enterocolitis. 2. Right Bochdalek hernia, containing only fat. 3. Indeterminate left adrenal nodule. ACR White Paper recommendations (Humphrey et al. J Am Donna Radiol 2017;14:5250-5083) suggest the following: For patients without cancer history, follow-up study with adrenal protocol CT in 12 months recommended. Consider biochemical evaluation to determine functional status and exclude pheochromocytoma. For patients with positive cancer history, prompt further evaluation with adrenal protocol CT recommended. 4. Left renal cortical cyst. 5. Small hiatal hernia. 6. Duodenal lipoma versus ingested fatty material. 7. 6 mm right middle lobe pulmonary nodule. Nonemergent CT of the chest is recommended if there are no prior studies for comparison. 8. Bronchiectasis. 9. Age-indeterminate, but possibly chronic L3 compression fracture. AFC: 20267 RL: 460 End of Report Lab Results: Lab Results BASIC METABOLIC PANEL (NA, K, CL, CO2, GLUCOSE, BUN, CREATININE, CA) - Abnormal Result Value Ref Range NA 135 135 - 145 mmol/L K 3.3 (*) 3.5 - 5.0 mmol/L CL 101 98 - 108 mmol/L CO2 TOTAL 27 23 - 31 mmol/L AGAP 7 2 - 16 BUN 14 7 - 23 mg/dL GLUCOSE 101 70 - 110 mg/dL CREATININE 1.04 0.50 - 1.04 mg/dL CALCIUM 11.0 (*) 8.6 - 10.6 mg/dL eGFR 52.1 mL/min/1.73m2 CBC WITH DIFF WBC 8.09 4.30 - 11.10 10*3/?L RBC 4.45 3.93 - 5.25 10*6/?L HGB 13.9 11.6 - 15.0 g/dL HCT 41.6 35.7 - 45.2 % MCV 93.5 80.6 - 95.5 fL MCH 31.2 25.9 - 32.8 pg MCHC 33.4 31.6 - 35.1 g/dL RDW-SD 43.8 39.0 - 49.9 fL RDW-CV 12.7 12.0 - 15.5 % PLT 224 166 - 358 10*3/?L MPV 9.7 9.5 - 12.9 fL NRBC/100 WBC 0.0 0.0 - 10.0 /100 WBCs NRBC x10 3 <0.01 10*3/?L GRAN MAT (NEUT) % 70.0 % IMM GRAN % 0.70 % LYMPH % 20.3 % MONO % 7.3 % EOS % 1.2 % BASO % 0.5 % GRAN MAT x10 3 (ANC) 5.66 1.88 - 7.09 10*3/uL IMM GRAN x10 3 0.06 0.00 - 0.06 10*3/uL LYMPH x10 3 1.64 1.32 - 3.29 10*3/uL MONO x10 3 0.59 0.33 - 0.92 10*3/uL EOS x10 3 0.10 0.03 - 0.39 10*3/uL BASO x10 3 0.04 0.01 - 0.07 10*3/uL EKG: If EKG completed, see Procedure Note. Orders and Treatments: Orders Placed This Encounter Procedures CT ABDOMEN PELVIS W CONTRAST Cbc with Diff Basic Metabolic Panel (NA, K, CL, CO2, GLUCOSE, BUN, CREATININE, CA) Orders Placed This Encounter Medications lactulose (CEPHULAC) 10 gram/15 mL oral solution 30 mL DISCONTD: KCL 20 mEq/15 mL solution 40 mEq Potassium Bicarb-Citric Acid (EFFER-K) effervescent tablet 40 mEq NaCl 0.9% (NS) IV infusion 1,000 mL iopamidol (ISOVUE 370-500 mL) injection 85 mL glycerin/mineral oil, AGLO ENEMA, Enem lactulose 10 gram/15 mL oral solution First Provider Eval: ED Events Date/Time Event User Comments 01/04/242018 Medical Screening Begins ADDIE HERNANDEZ MD -- 01/04/242018 First Provider Evaluation ADDIE HERNANDEZ MD -- ED COURSE Diagnosis/Impression as of 01/04/24 2316 LLQ abdominal pain Constipation, unspecified constipation type Hypokalemia Hypercalcemia Adrenal nodule - Left Hiatal hernia Pulmonary nodule, right Procedures: Procedures MDM: Medical Decision Making Amount and/or Complexity of Data Reviewed Labs: ordered. Radiology: ordered. Risk Prescription drug management. Flowsheet Documentation: Scoring Tools: No data recorded Disposition/Condition: ED Disposition ED Disposition Disch - Home Condition Stable Comment -- Discharge Medications: Patient's Medications START taking these medications GLYCERIN/MINERAL OIL, AGLO ENEMA, ENEM Insert 225 mL into rectum as needed for Constipation. LACTULOSE 10 GRAM/15 ML ORAL SOLUTION Take 30 mL by mouth 3 (three) times daily as needed for Constipation or For bowel movement. CONTINUE taking these medications which have NOT CHANGED NAPROXEN 250 MG TABLET Take 1 tablet by mouth in the morning and 1 tablet in the evening. Take with meals. START taking Modified Medications as Prescribed No medications on file STOP taking these medications No medications on file Follow-up: Contact information for follow-up Jamison Montanez MD Specialty: NEPHROLOGY Relationship: PCP - General Nephrology [address] [facility] [address] Electronically signed by: Addie Hernandez MD 01/04/24 2316 [facility] 2023-12-26 12:10:04 Pt given printed and verbal [...] in no apparent distress. Clari Hamilton RN [facility] 2023-12-26 11:59:26 Pt was discharged and she [...] law. Pt is sitting in the lobby. [facility] 2023-12-26 11:16:00 Provider in speaking with patient and patients son (son is on the phone) at this time regarding plan of care. T La Shah RN [facility] 2023-12-26 11:09:35 Pt speaking with son at this time. [facility] 2023-12-26 11:09:10 Spoke with social workers, updated HELMINTHOLOGIST on results of possible admission. [facility] Bita London RN [facility] 2023-12-26 11:00:00 marble worker spoke with patient. [facility] 2023-12-26 10:55:57 Received report from Surya. [facility] 2023-12-26 09:51:00 Patient offered toileting and updated on plan of care, Patient connected to monitor, VSS, no distress noted. Bed in locked and low position. [facility] 2023-12-26 08:44:59 Left a message with Rosemary Coombs with social workers. [facility] 2023-12-26 08:37:25 Patient arrives via EMS with c/o left upper leg pain that has progressed to non-weight bearing. Patient seen here yesterday for same complaint. Donell Parekh RN [facility] 2023-12-25 18:54:03 family here to pickup Patient NAD noted Patient given discharge instructions with readback, discussed prescriptions and follow up care. IV removed and intact. Steady gait with NAD noted. Donell Parekh RN [facility] 2023-12-25 18:10:43 Family contacted ride ETA less than one hour from now, patient soiled and linen and garment changed.VSS NAD noted T [facility] 2023-12-25 17:32:51 Attempted to call family pravin bhatti x1 no answer [facility] 2023-12-25 17:19:40 Patient pending ride from family, number on facesheet not working(koby bhatti) T [facility] 2023-12-25 15:35:23 Patient with complaints of Left leg pain, MD made aware T [facility] 2023-12-25 13:34:26 Patient reports LLQ abdominal pain for weeks that comes and goes. Denies n/v/d. Daughter in law states that patient was prescribed 3 medications for UTI 5 days ago. Patient is not good historian. 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 See early this morning at [facility] w/ neg CT scan (papers brought to [...] SQ EPITH 1 HPF COMP. METABOLIC PANEL (13516) - Abnormal NA 134 (*) 135 - [...] Urinalysis Cbc with Diff Comp. Metabolic Panel (11153) Lipase Lactic Acid Whole Blood Orders Placed This Encounter Medications traMADoL (ULTRAM) tablet 50 mg naproxen (NAPROSYN) tablet 500 mg traMADoL 50 mg tablet naproxen 250 mg tablet First Provider Eval: ED Events Date/Time Event User Comments 12/25/23 1324 Medical Screening Begins REZA RASHID MD P -- 12/25/23 1324 First Provider Evaluation REZA [...] Follow-up: Electronically signed by: Reza Rashid MD 12/25/231740 T [facility]
[2024-01-12 12:20] LABS: Absolute Lymphocytes (CBC) 0.9 K/uL (0.7-4.9); Absolute Monocytes 0.6 K/uL (0.1-1.3); Absolute Neutrophil 6.2 K/uL (1.8-8.0); Basophils % 0.6 % (0-1.3); Eosinophils % 0.4 % (0-4.4); Hematocrit 43.1 % (36.0-45.0); Hemoglobin 14.3 g/dL (12.0-15.0); MCH 31.5 pg (27.0-35.0); MCHC 33.1 g/dL (32.0-36.0); MPV 7.5 fL (7.6-11.3); Monocytes % 7.5 % (3.3-12.3); Neutrophils % 79.5 % (41.7-73.7); Platelets 224 thou/uL (152-406); RBC Red Blood Cell Count 4.54 M/uL (3.86-4.86); Red Cell Distribution Width 13.6 % (12.1-15.2)
[2024-01-12 12:36] LABS: Albumin 3.7 g/dL (3.4-5.0); Albumin/Globulin Ratio 1.2 (1.1-1.8); Anion Gap 5.7 mEq/L (5.0-15.0); Bilirubin Total 0.4 mg/dL (0.2-1.0); Potassium 3.7 mEq/L (3.5-5.1); Protein, Total 6.7 g/dL (6.4-8.2)
--- NOTE | 2024-01-12 12:41 | RAD REPORT ---
EXAMINATION: US LEFT LOWER EXTREMITY VENOUS DOPPLER CLINICAL INDICATION: PAIN TECHNIQUE: Complete bilateral duplex sonography of the LEFT lower extremity veins was performed. The examination included compression for vein patency, color Doppler imaging and flow augmentation in response to distal compression of the distal external iliac, common femoral, femoral, popliteal, tibi al, and great and small saphenous veins. COMPARISON: No prior exam. FINDINGS: Duplex sonography testing of the veins of the LEFT lower extremity was performed. Color flow imaging shows all veins to be compressible with [id number] color filling. Pulsatile and phasic flow is present within all lower extremity deep and superficial veins examined. IMPRESSION: There is no deep vein or superficial vein thrombosis.
--- NOTE | 2024-01-12 13:10 | RAD REPORT ---
EXAMINATION: CT ABDOMEN AND PELVIS WITH CONTRAST CLINICAL INDICATION: ABD PAIN TECHNIQUE: CT abdomen and pelvis was performed, after the administration of IV contrast, as per [facility] protocol. Axial, sagittal and coronal reconstructions were obtained. One or more of the following dose reduction techniques were used: Automated exposure control, adjustment of the mA and k V according to patient size, and iterative reconstruction. Unless otherwise specified, incidental findings do not require dedicated imaging follow-up. COMPARISON: 01/01/2024 FINDINGS: LOWER CHEST: 7 mm nodule is present anterior right base, unchanged over long timeframe. Small hiatal hernia. LIVER: Mild fatty liver is present. No focal lesion or biliary dilatation is seen. SPLEEN: Normal size. No focal lesion. PANCREAS: No mass, ductal dilation, or blaise-pancreatic fluid. 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 KIDNEYS: Normal size and contour. No hydronephrosis. GASTROINTESTINAL TRACT: No evidence of free air, significant intra-abdominal free fluid, bowel obstru ction or abscess. APPENDIX: Appendix not visualized, but no inflammatory changes in region of appendix. LYMPH NODES: No lymphadenopathy. MUSCULOSKELETAL: Mild multilevel spinal degenerative changes. ADDITIONAL FINDINGS: 2 cm lipoma suspected distal stomach. IMPRESSION: No acute or concerning abnormalities seen in the abdomen or pelvis.
[2024-01-12 13:45] LABS: Specific Gravity 1.024 (1.005-1.030); Sqamous Epithelial <5 /HPF (None Seen); Urine Bacteria None Seen /HPF (<20); Urine Bilirubin NEGATIVE (Negative); Urine Blood Negative (Negative); Urine Clarity Turbid (Clear); Urine Color Light-Yellow (Yellow); Urine Culture Reflex Order NOT NEEDED; Urine Glucose NEGATIVE (Negative); Urine Ketones NEGATIVE (Negative); Urine Microscopic Reflex YN ORDER UMIC; Urine Nitrite NEGATIVE (Negative); Urine Protein NEGATIVE (Negative); Urine RBC None Seen /HPF (None Seen); Urine Urobilinogen Normal (Normal); Urine WBC <5 /HPF (<5); Urine Yeast (Budding) Trace /HPF (None Seen)
--- NOTE | 2024-01-12 14:11 | ER ---
Nurse's Notes [facility] Name: Leelee Bhatti Age: 88 yrs Sex: Female : 1935 Arrival Date: 01/12/2024 Time: 11:53 Bed 7 Private MD: Diagnosis: Lower abdominal pain, unspecified Presentation: 01/11 11:58 Chief complaint: EMS states: "toned out for left leg pain and left sided abdominal pain mb9 for months.". Coronavirus screen: At this time, the client does not indicate any symptoms associated with coronavirus-19. Ebola Screen: No symptoms or risks identified at this time. Initial Sepsis Screen: Does the patient meet any 2 criteria? No. Patient's initial sepsis screen is negative. Does the patient have a suspected source of infection? No. Patient's initial sepsis screen is negative. Risk Assessment: Do you want to hurt yourself or someone else? Patient reports no desire to harm self or others. Onset of symptoms was 2023. 11:58 Method Of Arrival: EMS: [facility] mb9 11:58 Acuity: GALEN 3 mb9 Historical: - Allergies: 12:00 Niacin; mb9 - PMHx: 12:00 Anxiety; Hypercholesterolemia; Hypertensive disorder; Major Depressive Disorder; mb9 - PSHx: 12:00 Ankle (L); mb9 - Immunization history:: Adult Immunizations up to date. - Infectious Disease History:: Denies. - Social history:: Smoking status: Patient denies any tobacco usage or history of. Screenin:04 [facility] ED Fall Risk Assessment (Adult) History of falling in the last 3 months, mb9 including since admission No falls in past 3 months (0 pts) Confusion or Disorientation No (0 pts) Intoxicated or Sedated No (0 pts) Impaired Gait No (0 pts) Mobility Assist Device Used No (0 pt) Altered Elimination No (0 pt) Score/Fall Risk Level 0 - 2 = Low Risk Oriented to surroundings, Maintained a safe environment, Educated pt \\T\\ family on fall prevention, incl call for assistance when getting out of bed. Abuse screen: Denies threats or abuse. Nutritional screening: No deficits noted. Tuberculosis screening: No symptoms or risk factors identified. Assessment: 12:15 General: Appears in no apparent distress. Behavior is calm, cooperative. Pain: mb9 Complains of pain in abdomen and left leg Pain does not radiate. Pain currently is 7 out of 10 on a pain scale. Quality of pain is described as throbbing, Pain began 3 weeks ago. Neuro: Perez Agitation-Sedation Scale (RASS): 0 - Alert and Calm Level of Consciousness is awake, alert, obeys commands, Oriented to person, place, time, situation, Appropriate for age. Cardiovascular: Patient's skin is warm and dry. Respiratory: Airway is patent Respiratory effort is even, unlabored, Respiratory pattern is regular, symmetrical. GI: Abdomen is round non-distended, Bowel sounds present X 4 quads. Abd is soft and non tender X 4 quads. Reports lower abdominal pain, upper abdominal pain. : No signs and/or symptoms were reported regarding the genitourinary system. EENT: No signs and/or symptoms were reported regarding the EENT system. Derm: Skin is pink, warm \\T\\ dry. Musculoskeletal: Range of motion: intact in all extremities. 12:16 Reassessment: US at bedside. mb9 13:22 Reassessment: No changes from previously documented assessment. Patient and/or family mb9 updated on plan of care and expected duration. Pain level reassessed. Patient is alert, oriented x 3, equal unlabored respirations, skin warm/dry/pink. 13:24 Reassessment: "I'm hungry and expect some food". Will ask attending if she can eat. ll1 Started to argue that her personal physician says she can eat and that they will be coming to the ER to see her. 13:26 Reassessment: cannot eat or drink until results have returned. Patient informed, ll1 verbalized understanding. Vital Signs: 11:58 BP 123 / 78; Pulse 76; Resp 18; Temp 98; Pulse Ox 99% on R/A; Weight 68.04 kg; Height 5 mb9 ft. 4 in. ; Pain 10/10; 13:00 BP 129 / 74; Pulse 71; Resp 16; Pulse Ox 95% ; cm10 11:58 Body Mass Index 25.75 (68.04 kg, 162.56 cm) mb9 11:58 Pain Scale: Adult mb9 ED Course: 11:58 Patient arrived in ED. mb9 11:59 Triage completed. mb9 12:00 Asya Hunter FNP-C is PHCP. kb 12:00 Fredy Kamara MD is Attending Physician. kb 12:00 Arm band placed on. mb9 12:01 Ailyn Mccabe, RN is Primary Nurse. mb9 12:04 Patient has correct armband on for positive identification. Provided Education on: mb9 press call light if needing anything. Door closed. Noise minimized. Warm blanket given. Pillow given. 12:10 Initial lab(s) drawn, by me, sent to lab. Inserted saline lock: 22 gauge in right mb9 forearm, using aseptic technique. Blood collected. Flushed with 10 mL NS. 12:12 CBC with Diff Sent. mb9 12:12 CMP Sent. mb9 12:12 Lipase Sent. mb9 12:16 No provider procedures requiring assistance completed. mb9 12:37 US Extremity Venous Unilateral Ltd In Process Unspecified. EDMS 13:02 CT Abd/Pelvis - IV Contrast Only In Process Unspecified. EDMS 14:23 IV discontinued, intact, bleeding controlled, No redness/swelling at site. Pressure cm10 dressing applied. Administered Medications: No medications were administered Medication: 12:05 VIS not applicable for this client. mb9 Outcome: 14:11 Discharge ordered by . kb 14:23 Discharged to home via wheelchair, cm10 14:23 Condition: good 14:23 Discharge instructions given to patient, Instructed on discharge instructions, follow up and referral plans. Demonstrated understanding of instructions, follow-up care, 14:23 Patient left the ED. cm10 Signatures: Dispatcher [employer] EDRI Asya Hunter, FRANSISCO HERNÁNDEZ-Ying Daily RN RN ll1 Ailyn Mccabe, RN RN [email or web address] Lissy Perrin RN RN cm10
--- NOTE | 2024-01-12 14:11 | EDPHYS ---
Physician Documentation [facility] Name: Leelee Bhatti Age: 88 yrs Sex: Female : 1935 Arrival Date: 01/12/2024 Time: 11:53 Bed 7 Private MD: ED Physician Fredy Kamara HPI: 01/11 15:04 This 88 yrs old Female presents to ER via EMS with complaints of Leg Pain, kb Abdominal Pain. 15:04 Patient is an 88-year-old female who presents for left lower quadrant pain and left kb thigh pain that started a little over a month ago. States she has been seen here and at [facility], most recently [facility] 5 days ago. Patient states that her PCP told her she could come to the hospital or a retirement and he would come see her there. Denies nausea, vomiting, diarrhea, fever. reports pain is aggravated by movement, alleviated by pressure/palpation.. Historical: - Allergies: 12:00 Niacin; mb9 - PMHx: 12:00 Anxiety; Hypercholesterolemia; Hypertensive disorder; Major Depressive Disorder; mb9 - PSHx: 12:00 Ankle (L); mb9 - Immunization history:: Adult Immunizations up to date. - Infectious Disease History:: Denies. - Social history:: Smoking status: Patient denies any tobacco usage or history of. ROS: 15:04 Constitutional: As per HPI kb Exam: 15:04 Constitutional: This is a well developed, well nourished patient who is awake, alert, kb and in no acute distress. Head/Face: Normocephalic, atraumatic. ENT: Moist Mucous membranes Cardiovascular: Regular rate Respiratory: Respirations even and unlabored. No increased work of breathing. Talking in full sentences Abdomen/GI: Soft, non-tender. No distention Back: No spinal tenderness. No costovertebral tenderness. Full range of motion. Skin: Warm, dry with normal turgor. Normal color. MS/ Extremity: Pulses equal, no cyanosis. Neurovascular intact. Full, normal range of motion. Neuro: Awake and alert, GCS 15, oriented to person, place, time, and situation. Moves all extremities. Normal gait. Vital Signs: 11:58 BP 123 / 78; Pulse 76; Resp 18; Temp 98; Pulse Ox 99% on R/A; Weight 68.04 kg; Height 5 mb9 ft. 4 in. ; Pain 10/10; 13:00 BP 129 / 74; Pulse 71; Resp 16; Pulse Ox 95% ; cm10 11:58 Body Mass Index 25.75 (68.04 kg, 162.56 cm) mb9 11:58 Pain Scale: Adult mb9 MDM: 12:00 Patient medically screened. kb 15:06 Differential diagnosis: UTI, diverticulitis, dvt, colitis. Data reviewed: vital signs, kb nurses notes. Historians other than the Patient: EMS: [email or web address]. Counseling: I had a detailed discussion with the patient and/or guardian regarding the historical points, exam findings, and any diagnostic results supporting the discharge/admit diagnosis, lab results, radiology results, the need for outpatient follow up, a family practitioner, to return to the emergency department if symptoms worsen or persist or if there are any questions or concerns that arise at home. 01/11 12:01 Order name: CBC with Diff; Complete Time: 12:27 kb 01/11 12:01 Order name: CMP; Complete Time: 12:39 kb 01/11 12:01 Order name: Lipase; Complete Time: 12:39 kb 01/11 12:01 Order name: Urinalysis w/ reflexes; Complete Time: 13:53 kb 01/11 12:01 Order name: CT Abd/Pelvis - IV Contrast Only; Complete Time: 13:10 kb 01/11 12:01 Order name: US Extremity Venous Unilateral Ltd; Complete Time: 12:45 kb 01/11 12:01 Order name: IV Saline Lock; Complete Time: 12:12 kb 01/11 12:01 Order name: Labs collected and sent; Complete Time: 12:12 kb Administered Medications: No medications were administered Disposition Summary: 01/12/24 14:11 Discharge Ordered Notes: Location: Home kb Condition: Stable kb Diagnosis - Lower abdominal pain, unspecified kb Followup: kb - With: Emergency Department - When: As needed - Reason: Worsening of condition Followup: kb - With: Private Physician - When: 2 - 3 days - Reason: Recheck today's complaints, Continuance of care, Re-evaluation by your physician Discharge Instructions: - Discharge Summary Sheet kb - Abdominal Pain, Adult, [id number] kb Forms: - Medication Reconciliation Form kb - Antibiotic Education kb - Prescription Opioid Use kb - Patient Portal Instructions kb - Leadership Thank You Letter kb Addendum: 01/14/2024 09:20 I was immediately available for consultation during this patient's visit. I did not e c2 personally see the patient or discuss the patient with the BRIAN. . Signatures: Dispatcher [employer] OBIMS Hunter Asya, ALTERNATIVE DISPUTE RESOLUTION MEDIATOR-C ALTERNATIVE DISPUTE RESOLUTION MEDIATOR-Ailyn Garrido RN RN mb9 Fredy Kamara MD MD ec2 Corrections: (The following items were deleted from the chart) 01/11 12: 12:01 CBC+H.LAB.BRZ ordered. EDMS EDMS 12: 12:01 COMPREHENSIVE METABOLIC PANEL+C.LAB.BRZ ordered. EDMS EDMS 12: 12:01 LIPASE+C.LAB.BRZ ordered. EDMS EDMS 12: 12:01 Urinalysis+U.LAB.BRZ ordered. EDMS EDMS 12:02 12:02 Abdomen Pelvis W Con+CT.RAD.BRZ ordered. EDMS EDMS 12:02 12:02 Extremity Venous Uni Ltd+US.RAD.BRZ ordered. EDMS EDMS 15:06 15:04 Patient is an 88-year-old female who presents for left lower quadrant pain and kb left thigh pain that started a little over a month ago. States she has been seen here and at [facility], most recently [facility] 5 days ago. Patient states that her PCP told her she could come to the hospital or a retirement and he would come see her there. Denies nausea, vomiting, diarrhea, fever. kb
[2024-01-12 16:49] VITALS: TEMP 98
[2024-01-12 16:51] VITALS: BP 129/74; O2SAT 95
== END 2024-01-12 14:23 | disposition home or self-care (01) ==
LOC: ER 11:53
DX: R10.32 Left lower quadrant pain (principal); M79.652 Pain in left thigh
CPT/HCPCS: 85025; 81001; 36415; 83690; 80053; 74177; 93971; Q9967; 99284

== ENCOUNTER 2024-05-09 03:54 | Emergency (ER) | payer OTHER ==
--- OUTSIDE RECORDS SUMMARY | 2024-05-09 03:56 | XMS REPORT | Continuity of Care Document ---
Author Name Unknown Address [address] [facility] [address] [place] [address] [facility] thconnect Address [address] [facility] [address] [place] [address] Care Team Providers Care Operation Specialist Name Role Phone Jamison Montanez MD Primary Care Physician Sahil Piedra Attending Clinician Unavailable Addie Hamilton MD Attending Clinician Lexi Vela Attending Clinician REZA RASHID Attending Clinician Unavail able REZA RASHID Attending Clinician Unavail able Reza Rashid MD Attending Clinician [phone] [email or web address] Attending Clinician Unavaila ble REZA RASHID Admitting Clinician Unavail able [email or web address] Admitting Clinician Unavaila ble Payers Payer Name Policy Type Policy Number Effective Date Expirati on Date Source Problems Condition Name Condition Details Condition Category Status Onset Date Resolution Date Last Treatment Date Treating Clinician Comments Source Frequency of micturitio n Frequency of micturitio n Disease Active 09-10 00:00: 00 [facility] Low back pain Low back pain Disease Active 09-10 00:00: 00 [facility] Essential hypertensi on Essential hypertensi on Disease Active 08-25 00:00: 00 [facility] Gastro-eso phageal reflux disease without esophagiti s Gastro-eso phageal reflux disease without esophagiti s Disease Active 08-25 00:00: 00 [facility] Hyperlipid emia Hyperlipid emia Disease Active 08-25 00:00: 00 [facility] Allergies, Adverse Reactions, Alerts Allergy Name Allergy Type Status Severity Reaction(s) Onset Date Inactive Date Treating Clinician Comments Source NIACIN DRUG INGREDI Active ITCHING 12-24 00:00: 00 [facility] Niacin Propensi ty to adverse reaction s Active Itching 12-24 00:00: 00 [facility] Social History Social Habit Start Date Stop Date Quantity Comments Source Sexual orientation [facility] Sex assigned at 1935 00:00:00 1935 00:00:00 [facility] Smoking Status Start Date Stop Date Source Tobacco smoking consumption unknown [facility] Medications Ordered Medication Name Filled Medication Name Start Date Stop Date Current Medication? Ordering Clinician Indication Dosage Frequency Signature (SIG) Comments Components Source NaCl 0.9% (NS) IV infusion 1,000 mL 2023-04 005 04:15: 00 01-04 05:26 :00 No 1000mL at 999 mL/hr, Intravenou s, ONCE, 1 dose, On Sun01/04/24 at 2315, Routine, HYPERCALCE ANTHONY [facility] Potassium Bicarb-Citr ic Acid (EFFER-K) effervescen t tablet 40 mEq 2023-04 0-05 04:15: 00 01-04 03:53 :00 No 40meq 40 mEq, Oral, ONCE, 1 dose, On Sun01/04/24 at 2315, Routine [facility] iopamidol (ISOVUE 370-500 mL) injection 85 mL 2023-04 0-05 04:15: 00 01-04 04:15 :00 No [id number] 85mL 85 mL, Intravenou s, ONCE, 1 dose, On Sun01/04/24 at 2315, Routine [facility] lactulose (CEPHULAC) 10 gram/15 mL oral solution 30 mL 2023-04 0 01:45: 00 01-04 01:53 :00 No 30mL 30 mL, Oral, ONCE, 1 dose, On Sun01/04/24 at 2045, RHONA [facility] glycerin/mi neral oil, AGLO ENEMA, Enem 2023-04 004 00:00: 00 Yes [id number] 225mL Insert 225 mL into rectum as needed for Constipati on. [facility] lactulose 10 gram/15 mL oral solution 2023-04 0 00:00: 00 Yes [id number] 30mL Take 30 mL by mouth 3 (three) times daily as needed for Constipati on or For bowel movement. [facility] naproxen (NAPROSYN) tablet 500 mg 12-25 15:00: 00 12-25 14:27 :00 No 500mg 500 mg, Oral, ONCE, 1 dose, On Sun12/26/23 at 1000, RHONA [facility] traMADoL (ULTRAM) tablet 50 mg 12-25 15:00: 00 12-25 14:27 :00 No 50mg 50 mg, Oral, ONCE, 1 dose, On Sun12/26/23 at 1000, RHONA [facility] naproxen (NAPROSYN) tablet 500 mg 12-25 13:00: 00 Yes 500mg 500 mg, Oral, BID MEALS, First dose on Sun12/26/23 at 0800, Until Discontinu ed, Routine [facility] traMADoL (ULTRAM) tablet 50 mg 12-24 21:45: 00 12-24 20:54 :00 No 50mg 50 mg, Oral, ONCE NOW, 1 dose, On Sun12/25/23 at 1645, Routine [facility] naproxen 250 mg tablet 12-24 00:00: 00 Yes [id number] 250mg Take 1 tablet by mouth in the morning and 1 tablet in the evening. Take with meals. [facility] traMADoL 50 mg tablet 12-24 00:00: 00 01-01 04:59 :00 No [id number] 50mg Take 1 tablet by mouth every 6 (six) hours as needed for Pain (scale 7-10) for up to 7 days. Indication s: acute pain [facility] Vital Signs Vital Name Observation Time Observation Value Comments S ource Systolic blood pressure 2024-01-05 04:00:00 108 mm[Hg] [facility] Diastolic blood pressure 2024-01-05 04:00:00 86 mm[Hg] [facility] Heart rate 2024-01-05 04:00:00 74 /min [facility] Respiratory rate 2024-01-05 04:00:00 16 /min [facility] Oxygen saturation in Arterial blood by Pulse oximetry 2024-01-05 04:00:00 98 /min [facility] Body temperature 2024-01-05 00:18:[address] [facility] Body height 2024-01-05 00:18:00 152.4 cm [facility] Body weight 2024-01-05 00:18:00 82 kg [facility] BMI 2024-01-05 00:18:00 35.31 kg/m2 [facility] Body height 2023-12-26 16:21:56 152.4 cm [facility] Systolic blood pressure 2023-12-26 14:00:00 152 mm[Hg] [facility] Diastolic blood pressure 2023-12-26 14:00:00 90 mm[Hg] [facility] Heart rate 2023-12-26 14:00:00 71 /min [facility] Respiratory rate 2023-12-26 14:00:00 16 /min [facility] Oxygen saturation in Arterial blood by Pulse oximetry 2023-12-26 14:00:00 95 /min [facility] Body temperature 2023-12-26 13:38:[address] [facility] Systolic blood pressure 2023-12-25 23:15:00 113 mm[Hg] [facility] Diastolic blood pressure 2023-12-25 23:15:00 85 mm[Hg] [facility] Heart rate 2023-12-25 23:15:00 81 /min [facility] Respiratory rate 2023-12-25 23:15:00 16 /min [facility] Oxygen saturation in Arterial blood by Pulse oximetry 2023-12-25 23:15:00 96 /min [facility] Body temperature 2023-12-25 18:35:[address] [facility] Body height 2023-12-25 18:35:00 152.4 cm [facility] Body weight 2023-12-25 18:35:00 77.111 kg [facility] BMI 2023-12-25 18:35:00 33.20 kg/m2 [facility] Procedures Procedure Date / Time Performed Performing Clinicia n Source CT ABDOMEN PELVIS W CONTRAST 2024-01-05 03:26:[address] [facility] BASIC METABOLIC PANEL (NA, K, CL, CO2, GLUCOSE, BUN, CREATININE, CA) 2024-01-05 01:54:[address] [facility] CBC WITH DIFF 2024-01-05 01:54:00 Addie Hamilton [facility] XR FEMUR 2 VW LEFT 2023-12-25 21:24:[address] [facility] URINALYSIS 2023-12-25 19:31:[address] [facility] LACTIC ACID WHOLE BLOOD 2023-12-25 19:31:[address] [facility] LIPASE 2023-12-25 19:31:[address] [facility] COMP. METABOLIC PANEL (12625) 2023-12-25 19:31:[address] [facility] CBC WITH DIFF 2023-12-25 19:31:[address] [facility] Encounters Start Date/Time End Date/Time Encounter Type Admission Type Attending Clinicians Care Facility Care Department Encounter ID Source 2022-07-14 14:39:02 [facility] [id number] [facility] 2022-07-12 08:06:00 [facility] [id number] [facility] 2022-07-10 09:04:02 [facility] [id number] [facility] 2024-01-04 19:29:00 2024-01-05 00:29:00 Emergency Addie Hamilton [facility] [id number] [facility] 2023-12-26 08:36:00 2023-12-26 12:12:00 Emergency Lexi Madden [facility] [id number] [facility] 2023-12-25 13:37:00 2023-12-25 18:55:00 Emergency X REZA RASHID [facility] ERT [id number] [facility] 2023-12-25 13:37:00 2023-12-25 18:55:00 Emergency Reza Rashid [facility] [id number] [facility] 2023-01-30 00:00:00 2023-01-30 00:00:00 Outpatient [email or web address] Misty [facility] [id number] [facility] Results Test Description Test Time Test Comments Results Result Comments Source CT ABDOMEN PELVIS W CONTRAST 03:54:27 Ordering Physician: ADDIE HAMILTON Clinical indication: Left lower quadrant abdominal pain. [...] apparent. Noassociated soft tissue abnormalities are apparent. [facility] with [id number] 02:35:01* Test Item Value Reference Range Interpretation [...] 33.4 g/dL 31.6-35.1 RDW-SD (test code = 54007-6) 43.8 fL 39.0-49.9 RDW-CV (test code = 788-0) 12.7 % 12.0-15.5 PLT (test code = 777-3) 224 166-358 MPV (test code = 52137-8) 9.7 fL 9.5-12.9 NRBC/100 WBC (test code = 5469537738) 0.0 0.0-10.0 NRBC x10^3 (test code = 3285701277) See_Comment [Automated me ssage] The system which generated this result transmitted reference range: 10*3/?L. The reference range was not used to interpret this result as normal/abnormal. GRAN MAT (NEUT) % (test code = 770-8) 70.0 % IMM GRAN % (test code = 9648120324) 0.70 % LYMPH % (test code = 736-9) 20.3 % MONO % (test code = 5905-5) 7.3 % EOS % (test code = 713-8) 1.2 % BASO % (test code = 706-2) 0.5 % GRAN MAT x10^3(ANC) (test code = 7833671597) 5.66 10*3/uL 1.88-7.09 IMM GRAN x10^3 (test code = 9991352458) 0.06 10*3/uL 0.00-0.06 LYMPH x10^3 (test code = 731-0) 1.64 10*3/uL 1.32-3.29 MONO x10^3 (test code = 742-7) 0.59 10*3/uL 0.33-0.92 EOS x10^3 (test code = 711-2) 0.10 10*3/uL 0.03-0.39 BASO x10^3 (test code = 704-7) 0.04 10*3/uL 0.01-0.07 [facility] [id number] 21:32:52XR FEMUR 2 VW LEFT HISTORY: ?leg pain COMPARISON: [facility] Whole [id number] 19:36:32* Test Item Value Reference Range Interpretation Comme nts LACTIC ACID (test code = 6362358107) 1.24 mmol/L 0.50-2.20 Lab Interpretation (test cod e = 00797-4) Normal [facility]
[2024-05-09] MEDS ORDERED: ONDANSETRON 4 MG (ODT) TAB ONE (04:36)
[2024-05-09] MEDS ORDERED: LORAZEPAM 1 MG TABLET ONE (04:37)
[2024-05-09 04:57] LABS: Absolute Basophils 0.1 K/uL (0-0.5); Absolute Eosinophils 0.1 K/uL (0-0.5); Absolute Lymphocytes (CBC) 1.5 K/uL (0.7-4.9); Absolute Monocytes 0.5 K/uL (0.1-1.3); Absolute Neutrophil 5.3 K/uL (1.8-8.0); Basophils % 0.7 % (0-1.3); Hematocrit 43.5 % (36.0-45.0); Hemoglobin 14.9 g/dL (12.0-15.0); Lymphocytes % 19.6 % (15.3-44.8); MCH 32.2 pg (27.0-35.0); MCHC 34.3 g/dL (32.0-36.0); MPV 7.7 fL (7.6-11.3); Monocytes % 7.2 % (3.3-12.3); Neutrophils % 71.5 % (41.7-73.7); Nucleated Red Blood Cells % 0.1 % (0-0); Platelets 198 thou/uL (152-406); RBC Red Blood Cell Count 4.62 M/uL (3.86-4.86); Red Cell Distribution Width 12.9 % (12.1-15.2)
[2024-05-09 05:06] LABS: PT Prothrombin Time 10.7 SECONDS (9.4-12.5); PTT, Activated Partial Thromb 29.1 SECONDS (24.3-36.9); Protime INR 1.02
[2024-05-09 05:08] LABS: Barbiturates NEGATIVE (NEGATIVE); Benzodiazepines NEGATIVE (NEGATIVE); Cocaine NEGATIVE (NEGATIVE); METHAMPHETAM NEGATIVE (NEGATIVE); Methadone NEGATIVE (NEGATIVE); Opiates NEGATIVE (NEGATIVE); Phencyclidine NEGATIVE (NEGATIVE); THC Cannibis NEGATIVE (NEGATIVE)
[2024-05-09 05:17] LABS: Specific Gravity 1.008 (1.005-1.030); Sqamous Epithelial None Seen /HPF (None Seen); Urine Bacteria <20 /HPF (<20); Urine Bilirubin NEGATIVE (Negative); Urine Blood Negative (Negative); Urine Clarity Turbid (Clear); Urine Color Colorless (Yellow); Urine Culture Reflex Order NOT NEEDED; Urine Glucose NEGATIVE (Negative); Urine Ketones NEGATIVE (Negative); Urine Microscopic Reflex YN ORDER UMIC; Urine Nitrite NEGATIVE (Negative); Urine Protein NEGATIVE (Negative); Urine RBC None Seen /HPF (None Seen); Urine Urobilinogen Normal (Normal); Urine WBC <5 /HPF (<5); Urine pH 7.5 (5.0-7.0)
[2024-05-09 05:57] LABS: ALT/SGPT 19 U/L (13-56); AST/SGOT 15 U/L (15-37); Albumin 3.4 g/dL (3.4-5.0); Albumin/Globulin Ratio 0.9 (1.1-1.8); Alkaline Phosphatase 60 U/L (45-117); Anion Gap 8.6 mEq/L (5.0-15.0); BUN Blood Urea Nitrogen 20 mg/dL (7-18); Bicarbonate 27 mEq/L (21-32); Bilirubin Total 0.5 mg/dL (0.2-1.0); Globulin 3.9 g/dL (2.3-3.5); Glomerular Filtration Rate 47 ml/min (=/>90); Glucose Level 98 mg/dL (74-106); Potassium 3.6 mEq/L (3.5-5.1); Protein, Total 7.3 g/dL (6.4-8.2); Sodium Level 136 mEq/L (136-145)
[2024-05-09 05:58] LABS: Bilirubin Direct < 0.2 mg/dL (0-0.2); Bilirubin Indirect, Calculated 0.3 mg/dL (0.2-0.8)
--- NOTE | 2024-05-09 07:19 | EDPHYS ---
Physician Documentation [facility] Name: Leelee Bhatti Age: 88 yrs Sex: Female : 1935 Arrival Date: 05/09/2024 Time: 03:54 Bed 15 Private MD: ED Physician Fredy Kamara HPI: 05/09 05:49 This 88 yrs old Female presents to ER via EMS with complaints of Anxiety. rt 05:49 Patient presents to the ED after not taking her sertraline for 2 days secondary to rt running out. She states that she does have a prescription in the pharmacy. The patient reports that she is worried that she has been missing his doses, states that she does not feel well but cannot give any further specifics. States that she is worried. Denies other acute complaints at this time, symptoms are moderate in severity, no other aggravating or alleviating factors.. Historical: - Allergies: 04:04 Niacin; jj7 - PMHx: 04:04 Anxiety; Hypercholesterolemia; Hypertensive disorder; Major Depressive Disorder; jj7 - PSHx: 04:04 Ankle (L); jj7 - Immunization history:: Adult Immunizations not up to date. - Infectious Disease History:: Denies. - Social history:: Smoking status: Patient denies any tobacco usage or history of. Patient/guardian denies using alcohol, street drugs, IV drugs. - Family history:: not pertinent. ROS: 05:49 Constitutional: Negative for fever, chills, and weight loss, Cardiovascular: Negative rt for chest pain, palpitations, and edema, Respiratory: Negative for shortness of breath, cough, wheezing, and pleuritic chest pain, Abdomen/GI: Negative for abdominal pain, nausea, vomiting, diarrhea, and constipation, MS/Extremity: Negative for injury and deformity, Skin: Negative for injury, rash, and discoloration, 05:49 Neuro: Positive for 05:49 Psych: Positive for anxiety, Negative for suicidal ideation, Exam: 05:49 Constitutional: This is a well developed, well nourished patient who is awake, alert, rt and in no acute distress. Head/Face: Normocephalic, atraumatic. Chest/axilla: Normal chest wall appearance and motion. Nontender with no deformity. No lesions are appreciated. Cardiovascular: Regular rate and rhythm with a normal S1 and S2. No gallops, murmurs, or rubs. Normal PMI, no JVD. No pulse deficits. Respiratory: Lungs have equal breath sounds bilaterally, clear to auscultation and percussion. No rales, rhonchi or wheezes noted. No increased work of breathing, no retractions or nasal flaring. Abdomen/GI: Soft, non-tender, with normal bowel sounds. No distension or tympany. No guarding or rebound. No evidence of tenderness throughout. Skin: Warm, dry with normal turgor. Normal color with no rashes, no lesions, and no evidence of cellulitis. MS/ Extremity: Pulses equal, no cyanosis. Neurovascular intact. Full, normal range of motion. 05:49 ECG was reviewed by the Attending Physician. Vital Signs: 03:56 BP 159 / 94; Pulse 65; Resp 16; Temp 98.8; Pulse Ox 99% ; Weight 54.43 kg; Height 5 ft. jj7 2 in. ; Pain 0/10; 07:44 BP 145 / 90; Pulse 70; Resp 15 S; Pulse Ox 99% on R/A; kc6 03:56 Body Mass Index 21.95 (54.43 kg, 157.48 cm) jj7 03:56 Pain Scale: Adult jj7 MDM: 04:01 Medical Screening Exam initiated rt 07:07 Data reviewed: vital signs, nurses notes. ED course: Patient signed out pending ec2 disposition. Lab work is unrevealing. Patient with anxiety, given lorazepam, patient is to follow-up outpatient with a primary care doctor. Patient's primary problem is not able to obtain her medications which she should follow-up with her PCP for.. 02 04:21 Order name: Acetaminophen; Complete Time: 05:58 rt 02 04:21 Order name: Basic Metabolic Panel; Complete Time: 05:58 rt 02 04:21 Order name: CBC with Diff; Complete Time: 05:15 rt 02 04:21 Order name: ETOH Level; Complete Time: 05:16 rt 02 04:21 Order name: Hepatic Function; Complete Time: 05:58 rt 02 04:21 Order name: PT-INR; Complete Time: 05:15 rt 02 04:21 Order name: Ptt, Activated; Complete Time: 05:15 rt 02 04:21 Order name: Salicylate; Complete Time: 05:16 rt 02 04:21 Order name: Urinalysis w/ reflexes; Complete Time: 05:26 rt 05/09 04:21 Order name: Urine Drug Screen; Complete Time: 05:15 rt 02 04:21 Order name: EKG; Complete Time: 04:21 rt 02 04:21 Order name: EKG - Nurse/Tech; Complete Time: 04:51 rt 05/09 04:21 Order name: IV Saline Lock; Complete Time: 04:43 rt 05/09 04:21 Order name: Labs collected and sent; Complete Time: 04:43 rt 02 04:21 Order name: Suicide Screening (O'Brien); Complete Time: 04:43 rt EC:49 Rate is 60 beats/min. Rhythm is regular, Normal Sinus Rhythm with No ectopy. QRS [place] rt is Normal. CA interval is normal. QRS interval is normal. QT interval is normal. No Q waves. T waves are Normal. No ST changes noted. Interpreted by me. Administered Medications: 04:43 Drug: LORazepam PO 1 mg PO once Route: PO; cp4 04:43 Drug: Ondansetron Oral Disintegrating Tablet Oral Disintegrating Tablet 4 mg PO once cp4 Route: PO; Disposition Summary: 05/09/24 07:19 Discharge Ordered Notes: Location: Home ec2 Condition: Stable ec2 Diagnosis - Generalized anxiety disorder ec2 Followup: ec2 - With: Private Physician - When: - Reason: Re-evaluation by your physician Discharge Instructions: - Discharge Summary Sheet ec2 - Panic Attack ec2 - Generalized Anxiety Disorder, Adult ec2 Forms: - Medication Reconciliation Form ec2 - Antibiotic Education ec2 - Prescription Opioid Use ec2 - Patient Portal Instructions ec2 - Leadership Thank You Letter ec2 Signatures: Dispatcher [employer] Mushtaq Saldivar RN RN jj7 Kvng Nielson MD MD rt Fredy Kamara MD MD ec2 Larissa Shah cp4 Corrections: (The following items were deleted from the chart) 04:21 04:21 ACETAMINOPHEN+C.LAB.BRZ ordered. EDMS EDMS 04:21 04:21 BASIC METABOLIC PANEL+C.LAB.BRZ ordered. EDMS EDMS 04:21 04:21 CBC+H.LAB.BRZ ordered. EDMS EDMS 04: 04:21 ETHANOL+C.LAB.BRZ ordered. EDMS EDMS 04: 04:21 HEPATIC FUNCTION+C.LAB.BRZ ordered. EDMS EDMS 04: 04:21 PROTIME (+INR)+COAG.LAB.BRZ ordered. EDMS EDMS 04: 04:21 PTT, ACTIVATED+COAG.LAB.BRZ ordered. EDMS EDMS 04: 04:21 SALICYLATE+C.LAB.BRZ ordered. EDMS EDMS 04: 04:21 Urinalysis+U.LAB.BRZ ordered. EDMS EDMS 04: 04:21 URINE DRUG SCREEN+UC.LAB.BRZ ordered. EDMS EDMS
--- NOTE | 2024-05-09 07:19 | ER ---
Nurse's Notes [facility] Name: Leelee Bhatti Age: 88 yrs Sex: Female : 1935 Arrival Date: 05/09/2024 Time: 03:54 Bed 15 Private MD: Diagnosis: Generalized anxiety disorder Presentation: 05/09 03:56 Chief complaint: Patient states: HASN'T PICKED UP HER ZOLOFT FROM THE PHARMACY. HASN'T jj7 TAKEN IT IN 2 DAY AND IS NOW FEELING WORRIED ABOUT HER HEALTH. DENIES CP, SOB, N/V. Coronavirus screen: At this time, the client does not indicate any symptoms associated with coronavirus-19. Ebola Screen: No symptoms or risks identified at this time. Initial Sepsis Screen: Does the patient meet any 2 criteria? No. Patient's initial sepsis screen is negative. Does the patient have a suspected source of infection? No. Patient's initial sepsis screen is negative. Risk Assessment: Do you want to hurt yourself or someone else? Patient reports no desire to harm self or others. Onset of symptoms was May 09, 2024. 03:56 Method Of Arrival: EMS: [facility] jj7 03:56 Acuity: GALEN 4 jj7 Triage Assessment: 04:04 General: Appears in no apparent distress. comfortable, Behavior is cooperative, jj7 appropriate for age, anxious. Pain: Denies pain. Neuro: No deficits noted. Level of Consciousness is awake, alert, obeys commands, Oriented to person, place, time, situation, Appropriate for age Window Assembler are. Historical: - Allergies: 04:04 Niacin; jj7 - PMHx: 04:04 Anxiety; Hypercholesterolemia; Hypertensive disorder; Major Depressive Disorder; jj7 - PSHx: 04:04 Ankle (L); jj7 - Immunization history:: Adult Immunizations not up to date. - Infectious Disease History:: Denies. - Social history:: Smoking status: Patient denies any tobacco usage or history of. Patient/guardian denies using alcohol, street drugs, IV drugs. - Family history:: not pertinent. Screenin:06 [facility] ED Fall Risk Assessment (Adult) History of falling in the last 3 months, jj7 including since admission No falls in past 3 months (0 pts) Confusion or Disorientation No (0 pts) Intoxicated or Sedated No (0 pts) Impaired Gait No (0 pts) Mobility Assist Device Used No (0 pt) Altered Elimination No (0 pt) Score/Fall Risk Level 0 - 2 = Low Risk Oriented to surroundings, Maintained a safe environment, Educated pt \T\ family on fall prevention, incl call for assistance when getting out of bed, Assessed \T\ reinforced patient's understanding of fall precautions. Abuse screen: Denies threats or abuse. Nutritional screening: No deficits noted. Tuberculosis screening: No symptoms or risk factors identified. Assessment: 04:33 General: Appears in no apparent distress. comfortable, Behavior is cooperative, cp4 appropriate for age, anxious. Pain: Denies pain. Neuro: Level of Consciousness is awake, alert, obeys commands, Oriented to person, place, time, situation. Cardiovascular: Patient's skin is warm and dry. Respiratory: Airway is patent Respiratory effort is even, unlabored. GI: Reports nausea. : No signs and/or symptoms were reported regarding the genitourinary system. EENT: No signs and/or symptoms were reported regarding the EENT system. Derm: No signs and/or symptoms reported regarding the dermatologic system. Musculoskeletal: No signs and/or symptoms reported regarding the musculoskeletal system. 05:35 Reassessment: MADE CONTACT WITH YOUSIF (PT'S SON) AND HE ADVISED HE WOULD BE HERE IN A br2 LITTLE WHILE TO PICK PT UP. 07:00 Reassessment: Patient appears in no apparent distress at this time. No changes from kc6 previously documented assessment. Patient and/or family updated on plan of care and expected duration. Pain level reassessed. Patient is alert, oriented x 3, equal unlabored respirations, skin warm/dry/pink. Vital Signs: 03:56 BP 159 / 94; Pulse 65; Resp 16; Temp 98.8; Pulse Ox 99% ; Weight 54.43 kg; Height 5 ft. jj7 2 in. ; Pain 0/10; 07:44 BP 145 / 90; Pulse 70; Resp 15 S; Pulse Ox 99% on R/A; kc6 03:56 Body Mass Index 21.95 (54.43 kg, 157.48 cm) [facility] 03:56 Pain Scale: Adult [facility] ED Course: 03:57 Patient arrived in ED. km 03:58 Kvng Nielson MD is Attending Physician. rt 04:04 Triage completed. jj7 04:04 Arm band placed on left wrist. Patient placed in an exam room, on a stretcher. jj7 04:06 Patient has correct armband on for positive identification. Bed in low position. Call jj7 light in reach. Provided Education on: USE OF CALL HAGER. Warm blanket given. 04:28 Larissa Shah is Primary Nurse. cp4 04:33 No provider procedures requiring assistance completed. cp4 04:54 Acetaminophen Sent. mm11 04:54 Basic Metabolic Panel Sent. mm11 04:54 CBC with Diff Sent. mm11 04:54 ETOH Level Sent. mm11 04:54 PT-INR Sent. mm11 04:54 Hepatic Function Sent. mm11 04:54 Ptt, Activated Sent. mm11 04:54 Salicylate Sent. mm11 04:54 Urinalysis w/ reflexes Sent. mm11 04:54 Urine Drug Screen Sent. mm11 04:54 Inserted saline lock: 22 gauge in right forearm, using aseptic technique. Blood mm11 collected. Flushed with 10 mL NS. 04:55 EKG done, by ED staff, reviewed by Kvng Nielson MD. mm11 07:04 Attending Physician role handed off by Kvng Nielson MD ec2 07:04 Fredy Kamara MD is Attending Physician. ec2 07:44 IV discontinued, intact, bleeding controlled, No redness/swelling at site. Pressure kc6 dressing applied. Administered Medications: 04:43 Drug: LORazepam PO 1 mg PO once Route: PO; cp4 04:43 Drug: Ondansetron Oral Disintegrating Tablet Oral Disintegrating Tablet 4 mg PO once cp4 Route: PO; Medication: 04:33 VIS not applicable for this client. cp4 Outcome: 07:19 Discharge ordered by . ec2 07:44 Discharged to home ambulatory, with family, kc6 07:44 Condition: good 07:44 Discharge instructions given to patient, family, Instructed on discharge instructions, follow up and referral plans. Demonstrated understanding of instructions, follow-up care, 07:45 Patient left the ED. kc6 Signatures: Marbella Aceves RN RN kc6 Mushtaq Bo RN RN jj7 Kvng Neilson MD MD rt Fredy Kamara MD MD ec2 Larissa Shah cp4 Amber Pederson kmf Concepción Blackwood, RN RN br2 pete parsons mm11
[2024-05-09 08:09] VITALS: TEMP 98.8; O2SAT 99
[2024-05-09 08:14] VITALS: BP 145/90
--- NOTE | 2024-05-09 13:38 | EKG ---
Test Date: 2024-05-09 Test Time: 04:49:21 Office Rn: DARREL MEASUREMENT RESULTS: Intervals: Rate: 60 [place]: 138 QRSD: 80 QT: 430 QTc: 430 Rembert: P: 42 [place]: 138 QRS: 46 T: 56 INTERPRETIVE STATEMENTS: Normal sinus rhythm Normal ECG Compared to ECG 12/19/2023 19:48:20 Sinus bradycardia no longer present Electronically Signed On 05-09-24 13:37:36 HEALTH COORDINATOR by Nestor Kennedy
== END 2024-05-09 07:45 | disposition home or self-care (01) ==
LOC: ER 03:54
DX: F41.1 Generalized anxiety disorder (principal)
CPT/HCPCS: 93005; 85025; 81001; 80048; 36415; 85610; 80076; 85730; 80307; 99284; 80143; 80179; 82077; Q0162